=== PATIENT | female | born 1970 | race Caucasian/White ===

== ENCOUNTER 2020-04-24 12:22 | Emergency (ER) | payer OTHER, SELFPAY ==
--- NOTE | ~2020-04-24 | XR_ITS ---
EXAMINATION: XR chest 2V DATE: 04/24/2020 13:14 INDICATION: Cough. TECHNIQUE: Frontal and lateral views of the chest were obtained. COMPARISON: None. FINDINGS: The chest demonstrates clear lungs without pneumonia, pleural effusion, or pneumothorax. Th e heart size is normal. There is a moderate-sized hiatal hernia. IMPRESSION: 1. Moderate-sized hiatal hernia. Reviewed, dictated and finalized at location A. 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
[2020-04-24 12:38] VITALS: BP 152/93; PULSE 90; RESP 20; TEMP 36.8; O2SAT 98
--- NOTE | 2020-04-24 13:04 | ED.GENADULT ---
HPI - General Adult General Chief complaint: Upper Respiratory Infection Stated complaint: cough Source: patient Mode of arrival: ambulatory Limitations: no limitations History of Present Illness HPI narrative: Patient presents for evaluation of respiratory symptoms. She indicates she developed chest congestion on 04/13/2020. She was evaluated at [facility] and had a positive Covid screening on 04/16/2020. She experienced a fever, productive cough of clear sputum, hoarse voice and some abdominal cramping after eating. No shortness of breath, chest pain, vomiting. She states her and son also tested positive for Covid. She does not smoke. No history of VTE. No surgeries with the last 4 weeks. No leg swelling. She states she came in today because she was concerned she had bronchitis. She states several years ago she had recurrent bronchitis and sounds like she was treated with antibiotics for some reason. She is scheduled to go back to work tomorrow and is concerned about a lingering cough. However, she is requesting go back to work and indicates that she does not want any medication to suppress her cough. Related Data Home Medications Medication Instructions Recorded Confirmed hydrochlorothiazide 04/24/20 nebivolol [Bystolic] mg 04/24/20 norethindrone acetate mg 04/24/20 omeprazole 04/24/20 Allergies Allergy/AdvReac Type Severity Reaction Status Date / Time No Known Allergies Allergy Unverified 05/01/18 15:59 Review of Systems Review of Systems: Narrative: CONSTITUTIONAL: Reports fever. Denies chills, or sweats. EYES: Denies visual changes, redness, or discharge. ENT: Denies rhinorrhea, congestion, sore throat, or otalgia. CARDIOVASCULAR: Denies chest pain, palpitations, or edema. RESPIRATORY: Reports productive cough of clear sputum. Denies SOB. GASTROINTESTINAL: Reports abdominal cramping after eating. Reports nausea without vomiting. GENITOURINARY: Denies dysuria or hematuria. SKIN: Denies rash or itching. MUSCULOSKELETAL: Denies back pain, joint pain, or myalgia. NEUROLOGIC: Denies headache, numbness, dizziness, or weakness. PSYCHIATRIC: Denies anxiety or depression. [facility] Past Medical History Medical History (Updated 04/24/20 @ 13:58 by Gopi Ann, [employer], ) GERD (gastroesophageal reflux disease) Hypertension Surgical History Surgical History History of Family History Family History (Reviewed 04/24/20 @ 13:08 by Gopi Ann [facility]) Father Heart disease Social History Social History (Reviewed 04/24/20 @ 13:09 by Gopi Ann [facility]) Smoking status: Never smoker Alcohol intake: current Alcohol use details: daily consumption to assist with sleep. 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 HEAD: Normocephalic, atraumatic. EYES: PERRLA and EOMI. ENT: Nares clear, no rhinorrhea or epistaxis. Mucous membranes moist. Oropharynx without tonsillar hypertrophy exudate or other lesions. Bilateral TMs pearly buck nonbulging NECK: Supple. No adenopathy or masses. No carotid bruits or JVD CHEST: Clear to auscultation. No respiratory distress. No wheezes rales or rhonchi HEART: Regular rate and rhythm. No murmur heard. Normal peripheral pulses. ABDOMEN: Soft, nontender, nondistended, normal active bowel sounds. EXTREMITIES: Normal range of motion. No edema. SKIN: Warm, dry, no rash. NEURO: No focal deficits. Alert and oriented x3. PSYCH: Normal mood and affect. Course
== END 2020-04-24 14:34 | disposition home or self-care (01) ==
PROVIDERS: Emergency Provider Nurse Practitioner; PCP Family Medicine
DX: U07.1 COVID-19 (principal); K44.9 Diaphragmatic hernia without obstruction or gangrene; K21.9 Gastro-esophageal reflux disease without esophagitis; I10 Essential (primary) hypertension
CPT/HCPCS: 71046; 99213; G0463

== ENCOUNTER 2021-07-12 16:52 | Outpatient (CLI) | payer OTHER, SELFPAY ==
[2021-07-12 18:22] LABS: Ferritin 5.26 ng/mL (11.1-264)
== END 2021-07-12 16:53 | disposition home or self-care (01) ==
LOC: ANHLAB 16:54
PROVIDERS: PCP Family Medicine; Visit Provider Nurse Practitioner Family
DX: R25.2 Cramp and spasm (principal); E61.1 Iron deficiency
CPT/HCPCS: 36415; 82607; 82728; 83735

== ENCOUNTER 2021-07-17 10:12 | Outpatient (CLI) | payer OTHER, SELFPAY ==
--- NOTE | 2021-07-17 10:18 | EST_ITS ---
Patient Info Name: Gabrielle Whitney Age: 51 years : 1970 Gender: Female Ht: 67 in Wt: 200 lbs BSA: 2.10 m2 Exam Date: 07/17/2021 10:31 AM Exam Location: [facility] Patient Status: Outpatient Admit Date: 07/17/2021 Staff Ordering Physician: Nico Parmar NP Attending Provider: Nico Parmar NP Exercise Technologist: Raven Barboza RDCS Exercise Physician: Torres Silverman DO Exam Type: CA stress test treadmill Study Info Indications R07.9 - Chest pain, unspecified A treadmill exercise stress test was performed. Summary 1. 1. Negative Jared exercise stress test for ischemic ST changes by ECG criteria. 2. 2. Reduced functional capacity, achieving 7 METs of workload. 3. 3. Baseline hypertension with hypertensive response to exercise. 4. 4. Appropriate HR response to exercise. 5. 5. Appropriate HR recovery at 1 minute post exercise. 6. 6. No imaging with stress testing. 7. 7. Patient informed of the above results. Protocol: Jared Stress ECG Details Stage: REST Duration (min): 7 min : 11 sec Speed (mph): 0.0 Grade (%): 0 HR (bpm): 86 SBP (mmHg): 158 DBP (mmHg): 96 METS: --- Stage: REST Duration (min): 14 min : 10 sec Speed (mph): 0.0 Grade (%): 0 HR (bpm): 102 SBP (mmHg): 158 DBP (mmHg): 96 METS: --- Stage: STAGE 1 Duration (min): 1 min : 0 sec Speed (mph): 1.7 Grade (%): 10 HR (bpm): 126 SBP (mmHg): 158 DBP (mmHg): 96 METS: --- Stage: STAGE 1 Duration (min): 2 min : 0 sec Speed (mph): 1.7 Grade (%): 10 HR (bpm): 139 SBP (mmHg): 158 DBP (mmHg): 96 METS: --- Stage: STAGE 1 Duration (min): 3 min : 0 sec Speed (mph): 1.7 Grade (%): 10 HR (bpm): 146 SBP (mmHg): 214 DBP (mmHg): 84 METS: --- Stage: STAGE 2 Duration (min): 1 min : 0 sec Speed (mph): 2.5 Grade (%): 12 HR (bpm): 155 SBP (mmHg): 214 DBP (mmHg): 84 METS: --- Stage: STAGE 2 Duration (min): 2 min : 0 sec Speed (mph): 2.5 Grade (%): 12 HR (bpm): 163 SBP (mmHg): 225 DBP (mmHg): 92 METS: --- Stage: STAGE 2 Duration (min): 2 min : 0 sec Speed (mph): 2.5 Grade (%): 12 HR (bpm): 163 SBP (mmHg): 225 DBP (mmHg): 92 METS: --- Stage: RECOVERY Duration (min): 0 min : 59 sec Speed (mph): 0.0 Grade (%): 0 HR (bpm): 144 SBP (mmHg): 224 DBP (mmHg): 97 METS: --- Stage: RECOVERY Duration (min): 1 min : 59 sec Speed (mph): 0.0 Grade (%): 0 HR (bpm): 121 SBP (mmHg): 224 DBP (mmHg): 97 METS: --- Stage: RECOVERY Duration (min): 2 min : 59 sec Speed (mph): 0.0 Grade (%): 0 HR (bpm): 115 SBP (mmHg): 224 DBP (mmHg): 97 METS: --- Stage: RECOVERY Duration (min): 3 min : 59 sec Speed (mph): 0.0 Grade (%): 0 HR (bpm): 107 SBP (mmHg): 198 DBP (mmHg): 93 METS: ---
== END 2021-07-17 10:13 | disposition home or self-care (01) ==
PROVIDERS: PCP Family Medicine; Visit Provider Nurse Practitioner Family
DX: R07.9 Chest pain, unspecified (principal)
CPT/HCPCS: 93017

== ENCOUNTER 2021-07-19 15:17 | Outpatient (CLI) | payer OTHER, SELFPAY ==
[2021-07-19 16:00] LABS: Hematocrit 34.9 % (37.0-47.0); Mean Corpuscular HGB Conc 28.7 g/dl (32-36); Mean Corpuscular Hemoglobin 22.1 pg (26-34); Mean Corpuscular Volume 77.2 fl (80-100); Platelet Count Result 417 k/mm3 (150-375); Red Blood Count 4.52 M/mm3 (4.2-5.4); Red Cell Distribution Width 17.1 % (11.5-14.5); White Blood Count 10.1 K/mm3 (4.5-10.0)
[2021-07-19 16:11] LABS: Alanine Aminotransferase 75 U/L (4-35); Albumin Level 4.6 g/dL (3.5-5.1); Alkaline Phosphatase 114 U/L (38-126); Anion Gap 10 mmol/L (8-16); Aspartate Amino Transferase 53 U/L (14-36); Bilirubin,Total 0.4 mg/dL (0.2-1.3); Blood Urea Nitrogen 14 mg/dL (7-17); Calcium 9.2 mg/dL (8.4-10.2); Carbon Dioxide 27 mmol/L (22-30); Chloride 98 mmol/L (98-107); Cholesterol 239 mg/dL (0-200); Estimated Glomerular Filt Rate > 60; Glucose 113 mg/dL (65-110); HDL Direct 65 mg/dL; Potassium 3.1 mmol/L (3.4-5.0); Sodium 135 mmol/L (137-145); Triglycerides 371 mg/dL (<150)
[2021-07-19 16:22] LABS: LDL Cholesterol Direct 104 mg/dL
[2021-07-19 18:11] LABS: Vitamin D 25 Hydroxy 37.9 ng/mL
[2021-07-19 20:35] LABS: Iron 30 ug/dL (37-170)
[2021-07-19 20:45] LABS: Percent Iron Saturation 6 % (20-50)
== END 2021-07-19 15:18 | disposition home or self-care (01) ==
PROVIDERS: PCP Family Medicine; Visit Provider Nurse Practitioner Family
DX: I10 Essential (primary) hypertension (principal); Z13.1 Encounter for screening for diabetes mellitus; Z68.31 Body mass index [BMI] 31.0-31.9, adult; F41.9 Anxiety disorder, unspecified; Z13.29 Encounter for screening for other suspected endocrine disorder; E61.1 Iron deficiency; Z13.220 Encounter for screening for lipoid disorders; Z55.9 Problems related to education and literacy, unspecified
CPT/HCPCS: 36415; 80053; 80061; 82306; 83540; 83550; 84443; 85027

== ENCOUNTER 2021-11-06 16:55 | Outpatient (CLI) | payer OTHER, SELFPAY ==
[2021-11-06 17:20] LABS: Basophils Absolute Auto 0.1 K/mm3 (0.0-0.1); Basophils Percent Auto 0.7 % (0.2-1.2); Eosinophils Absolute Auto 0.1 K/mm3 (0-0.3); Eosinophils Percent Auto 1.1 % (0-4.4); Hemoglobin 10.6 g/dL (12.0-15.0); Immature Granulocyte Absolute 0.02 K/mm3 (0.00-0.031); Immature Granulocyte Percent A 0.2 % (0-0.5); Lymphocytes Absolute Auto 1.97 K/mm3 (0.9-3.2); Lymphocytes Percent Auto 20.7 % (18.3-44.2); Mean Corpuscular HGB Conc 29.4 g/dl (32-36); Mean Corpuscular Hemoglobin 23.4 pg (26-34); Mean Corpuscular Volume 79.5 fl (80-100); Mean Platelet Volume 10.2 fl (7.4-10.4); Monocytes Absolute Auto 0.8 K/mm3 (0.1-0.6); Neutrophils Absolute Auto 6.6 K/mm3 (1.3-6.7); Neutrophils Percent Auto 69.3 % (45.5-73.1); Platelet Count Result 380 k/mm3 (150-375); Red Blood Count 4.53 M/mm3 (4.2-5.4); Red Cell Distribution Width 15.9 % (11.5-14.5); White Blood Count 9.5 K/mm3 (4.5-10.0)
[2021-11-06 17:27] LABS: Alanine Aminotransferase 52 U/L (6-35); Albumin Level 4.5 g/dL (3.5-5.1); Alkaline Phosphatase 139 U/L (38-126); Anion Gap 12 mmol/L (8-16); Aspartate Amino Transferase 32 U/L (14-36); Bilirubin,Total 0.3 mg/dL (0.2-1.3); Blood Urea Nitrogen 12 mg/dL (7-17); Calcium 9.6 mg/dL (8.4-10.2); Carbon Dioxide 23 mmol/L (22-30); Chloride 101 mmol/L (98-107); Estimated Glomerular Filt Rate > 60; Glucose 95 mg/dL (65-110); Sodium 136 mmol/L (137-145)
[2021-11-06 17:41] LABS: Iron 25 ug/dL (37-170)
[2021-11-06 17:51] LABS: Percent Iron Saturation 5 % (20-50)
[2021-11-06 17:52] LABS: Vitamin D 25 Hydroxy 25.2 ng/mL
[2021-11-06 18:18] LABS: Ferritin 4.71 ng/mL (11.1-264)
== END 2021-11-06 16:56 | disposition home or self-care (01) ==
PROVIDERS: PCP Family Medicine; Visit Provider Nurse Practitioner Family
DX: E61.1 Iron deficiency (principal); I10 Essential (primary) hypertension; E55.9 Vitamin D deficiency, unspecified
CPT/HCPCS: 36415; 80053; 82306; 82728; 83540; 83550; 85025

== ENCOUNTER 2022-06-27 18:40 | Emergency (ER) | payer OTHER, SELFPAY ==
[2022-06-27 18:47] VITALS: BP 149/86; PULSE 89; RESP 18; TEMP 37.3; O2SAT 100
--- NOTE | 2022-06-27 19:13 | ED.URI ---
HPI - URI/Sore Throat General Chief Complaint: Upper Respiratory Infection Stated Complaint: strep throat Time Seen by Provider: 06/27/22 19:10 Source: patient, RN notes reviewed and old records reviewed Mode of arrival: ambulatory Limitations: no limitations History of Present Illness HPI Narrative: 52 year old female who presents to [facility] care with complaints of sore throat since last night. Patient reports that she had previous strep throat in April and was treated with antibiotic which she completed. Patient states that she has taken some Tylenol and Ibuprofen for her discomfort. 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 Patient reports some sinus drainage but denies any acute cough or any ear pain or any known acute fevers. MD elicited complaint: cough and sore throat Pertinent past history: other (previous strep) Onset (ago): day(s) (last night) Pain scale (0-10): 2 Able to tolerate fluids by mouth: Yes Exacerbating factors: swallowing Treatments prior to arrival: acetaminophen and ibuprofen Related Data Home Medications Medication Instructions Recorded Confirmed norethindrone 1 mg-ethinyl 1 tablet PO DAILY 11/06/21 06/27/22 estradiol 20 mcg (24)-iron 75 mg (4) tablet (Blisovi 24 Fe) Allergies Allergy/AdvReac Type Severity Reaction Status Date / Time Lactobacillus rhamnosus GG AdvReac Intermediate Nausea and Verified 06/27/22 18:57 [From [facility] Vomiting Probiotics] Review of Systems Review of Systems: CONSTITUTIONAL: Denies malaise, chills, sweats, or fever. EYES: Denies visual changes, redness, or discharge. ENT: Reports rhinorrhea, congestion, sinus pain,no otalgia positive sore throat. CARDIOVASCULAR: Denies chest pain, palpitations, or edema. RESPIRATORY: Reports no acute cough.? Denies dyspnea. GASTROINTESTINAL: Denies abdominal pain, nausea, vomiting, diarrhea SKIN: Denies rash or itching. MUSCULOSKELETAL: Denies myalgia. NEUROLOGIC: Denies headache. All systems reviewed & are unremarkable except as noted in HPI and below PMFSH Past Medical History Medical History BMI 27.0-27.9,adult BMI 28.0-28.9,adult BMI 30.0-30.9,adult BMI 31.0-31.9,adult GERD (gastroesophageal reflux disease) Hypertension Post endometrial ablation syndrome Surgical History Surgical History History of Family History Family History Father Heart disease Acute myocardial infarction Mother Sepsis Arthritis Hypertension Sibling Acute myocardial infarction COVID-19 Sibling Hypertension Cerebrovascular accident COVID-19 Social History Social History Smoking status: Never smoker Second hand tobacco smoke exposure: Yes Alcohol intake: current Alcohol use details: daily consumption to assist with sleep. 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 There is no relevant family history pertinent to the presenting
== END 2022-06-27 19:30 | disposition home or self-care (01) ==
PROVIDERS: Emergency Provider Registered Nurse; PCP Family Medicine
DX: J02.0 Streptococcal pharyngitis (principal); I10 Essential (primary) hypertension
CPT/HCPCS: 87880; 99213; G0463

== ENCOUNTER 2022-11-09 09:19 | Outpatient (CLI) | payer OTHER, SELFPAY ==
[2022-11-09 09:38] LABS: Hematocrit 32.2 % (37.0-47.0); Hemoglobin 9.5 g/dL (12.0-15.0); Mean Corpuscular HGB Conc 29.5 g/dl (32-36); Mean Corpuscular Hemoglobin 22.9 pg (26-34); Mean Corpuscular Volume 77.6 fl (80-100); Mean Platelet Volume 9.8 fl (7.4-10.4); Platelet Count Result 362 k/mm3 (150-375); Red Blood Count 4.15 M/mm3 (4.2-5.4); Red Cell Distribution Width 16.5 % (11.5-14.5); White Blood Count 9.2 K/mm3 (4.5-10.0)
[2022-11-09 09:53] LABS: Alanine Aminotransferase 37 U/L (6-35); Albumin Level 4.3 g/dL (3.5-5.1); Alkaline Phosphatase 77 U/L (38-126); Anion Gap 6 mmol/L (8-16); Aspartate Amino Transferase 31 U/L (14-36); Bilirubin,Total 0.4 mg/dL (0.2-1.3); Blood Urea Nitrogen 16 mg/dL (7-17); Calcium 9.3 mg/dL (8.4-10.2); Carbon Dioxide 27 mmol/L (22-30); Chloride 103 mmol/L (98-107); Estimated Glomerular Filt Rate > 60; Glucose 106 mg/dL (65-110); Magnesium 1.8 mg/dL (1.6-2.3); Potassium 3.7 mmol/L (3.4-5.0); Sodium 136 mmol/L (137-145)
[2022-11-09 10:41] LABS: Iron 41 ug/dL (37-170); Percent Iron Saturation 8 % (20-50)
[2022-11-09 11:29] LABS: HAV RESULT Negative (Negative); Hepatitis B Core IgM Result Negative (Negative); Hepatitis B Surface Antigen Negative (Negative); Hepatitis C Virus Antibody Negative (Negative)
[2022-11-09 12:08] LABS: Vitamin D 25 Hydroxy 25.2 ng/mL
== END 2022-11-09 09:20 | disposition home or self-care (01) ==
PROVIDERS: PCP Family Medicine; Visit Provider Family Medicine
DX: E61.1 Iron deficiency (principal); E55.9 Vitamin D deficiency, unspecified; I10 Essential (primary) hypertension; R74.01 Elevation of levels of liver transaminase levels
CPT/HCPCS: 36415; 80048; 80074; 80076; 82306; 83540; 83550; 83735; 84443; 85027

== ENCOUNTER 2022-11-30 12:42 | Outpatient (CLI) | payer OTHER, SELFPAY ==
--- NOTE | ~2022-11-30 | XR_ITS ---
EXAMINATION: XR lumbar spine min 4V DATE: 11/30/2022 13:11 INDICATION: Spondylosis without myelopathy TECHNIQUE: Anteroposterior and lateral in neutral, flexion and extension views of the lumbar spine we re obtained. COMPARISON: None. FINDINGS: Bone alignment is normal. There is no hypermobility with flexion or extension. There is mod erate loss of intervertebral disc space height at L5-S1. The vertebral body heights are maintained. T here is no fracture. There are phleboliths of the pelvis. IMPRESSION: 1. Moderate lumbar spondylosis at L5-S1. Reviewed, dictated and finalized at location F.
== END 2022-11-30 12:43 | disposition home or self-care (01) ==
PROVIDERS: PCP Family Medicine; Visit Provider Neurological Surgery
DX: M47.816 Spondylosis without myelopathy or radiculopathy, lumbar region (principal); M47.897 Other spondylosis, lumbosacral region
CPT/HCPCS: 72110

== ENCOUNTER 2022-12-18 14:55 | Outpatient (CLI) | payer OTHER, SELFPAY ==
--- NOTE | 2022-12-18 15:25 | ECG_ITS ---
Measurements Intervals [place] Rate: 73 P: 5 KS: 169 QRS: -8 QRSD: 88 T: -2 QT: 400 QTc: 441 Interpretive Statements SINUS RHYTHM VOLTAGE CRITERIA FOR LVH [MEETS CRITERIA IN ONE OF: R(aVL), S(V1), R(V5), R(V5/V6)+S(V1)] NO PREVIOUS ECG AVAILABLE FOR COMPARISON Electronically Signed On 12-18-2022 15:54:19 CDT by Yousif Vaughan M.D.
[2022-12-18 15:52] LABS: Hematocrit 29.1 % (37.0-47.0); Hemoglobin 8.6 g/dL (12.0-15.0); Mean Corpuscular HGB Conc 29.6 g/dl (32-36); Mean Corpuscular Hemoglobin 22.9 pg (26-34); Mean Corpuscular Volume 77.6 fl (80-100); Mean Platelet Volume 10.4 fl (7.4-10.4); Platelet Count Result 386 k/mm3 (150-375); Red Blood Count 3.75 M/mm3 (4.2-5.4); Red Cell Distribution Width 16.2 % (11.5-14.5); White Blood Count 10.1 K/mm3 (4.5-10.0)
[2022-12-18 15:53] LABS: Appearance Urine Clear (Clear); Bilirubin Urine Negative (Negative); Blood Urine Negative (Negative); Color Urine Yellow (Yellow); Glucose Urine UA Negative (Negative); Ketones Urine Negative (Negative); Leukocyte Esterase Ur Negative LEU/UL (Negative); Nitrate Urine Negative (Negative); Protein Urine Negative (Negative); Specific Grav Ur 1.016 (1.001-1.035); Urobilinogen Urine 0.2 mg/dL (<2.0); pH Urine 5.5 (5.0-9.0)
[2022-12-18 15:56] LABS: Add Urine Microscopic? NO
[2022-12-18 16:04] LABS: INR 0.9; Partial Thromboplastin Time 23.9 SECONDS (22.3-36.8); Prothrombin Time 12.6 Seconds (11.1-14.7)
== END 2022-12-18 14:56 | disposition home or self-care (01) ==
LOC: ANHSURGERY 14:59
PROVIDERS: PCP Family Medicine; Visit Provider Neurological Surgery
DX: M47.816 Spondylosis without myelopathy or radiculopathy, lumbar region (principal); I10 Essential (primary) hypertension; Z01.818 Encounter for other preprocedural examination
CPT/HCPCS: 36415; 81003; 85027; 85610; 85730; 93005

== ENCOUNTER 2022-12-20 00:36 | Day surgery (SDC) | payer OTHER, SELFPAY ==
[2022-12-13 15:12] VITALS: BMI 29.7
--- NOTE | 2022-12-13 15:14 | PC.NURSE ---
Report to the Outpatient Waiting Room, entrance under the green pavilion located off [facility], at time 10:00 on date 12/20/22. Planned Procedure Time: 12:00. Time changes happen often and if your time is changed the preop area will call you the afternoon before. - You and your visitor will be asked to self-screen and do not enter if you have any COVID symptoms. - A mask is optional within the hospital at this time. Patients may have clear liquids (water, carbonated beverages, clear teas, apple juice) until 3 hours prior to surgery (9:00) with a maximum of 20 ounces. - No food from midnight until time of surgery Take the following medications with a SIP of water the morning of surgery: BLISOVI DO NOT STOP ANY OF YOUR OTHER PRESCRIPTION MEDICATIONS PRIOR TO SURGERY ?EXCEPT THE FOLLOWING Medications to discontinue per physician: DICLOFENAC Date to take last dose: 12/12/22 PER PT Please no make-up, nail italian, hairspray, perfume, deodorant, or body powder the day of surgery. No jewelry (including any body piercings) or valuables the day of surgery, leave them at home. Please take a shower or bath the night before, or the morning of, surgery with an antibacterial soap. Wear comfortable, loose fitting clothing. - Jewelry must be removed prior to entering the operating room. Rings and piercings that are not removed may be cut off. - The hospital will not accept responsibility for valuables. - Please leave all valuables, including medications, at home the day of surgery. If you are going home after surgery, a licensed medical delivery driver must drive you home. - NO public transportation without another adult if you receive anesthesia. - We recommend that an adult stay with you for 24 hours following discharge. - We also recommend that you do not drive, make important decision, drink alcoholic beverages, or take any drugs that were not prescribed by your health care provider for at least 24 hours after your discharge time. Follow any additional instructions given to you from your surgeon. If you or anyone in your household have experienced Covid symptoms in the past week, please notify your surgeon or the nurse liaison at the phone number below for possible testing. Telephone instructions given to PT - CLARENCE ADAMS and asked if any additional questions and then verbalized understanding. Patient advised to call surgeon office or pre surgery nurse liaison [phone] if any additional questions.
[2022-12-20] VITALS (10 sets, daily range): BP systolic 130–145; BP diastolic 73–87; PULSE 71–102; RESP 12–17; TEMP 36.3–36.6; O2SAT 96–100
--- NOTE | ~2022-12-20 | XR_ITS ---
EXAMINATION: XR fluoroscopy no charge DATE: 12/20/2022 13:15 INDICATION: Lumbar decompression TECHNIQUE: 2 lateral fluoroscopic images of the lumbosacral junction were obtained during procedure p erformed by Dr. Holden. Radiologist was not present for the imaging or procedure. The amount of fluoro scopy time used during this procedure was 0.1 minutes. COMPARISON: 11/30/2022 FINDINGS: Initial image redemonstrates minimal retrolisthesis L5 on S1 with moderate associated disc height los s. Soft tissue retractors project over the soft tissues posterior to the L4 and L5 spinous processes. The tip of a metallic probe projects over the region of the L5-S1 facet joints. IMPRESSION: 1. Fluoroscopy utilized during reported lower lumbar decompression. See procedure note for further de tail. Reviewed, dictated and finalized at location A. IMPRESSION: 1. Fluoroscopy utilized during reported lower lumbar decompression. See procedu re note for further detail.
--- NOTE | 2022-12-20 09:37 | WPDANESEPPF ---
Anes - Initial Pre Proc Eval Procedure: Operation Date: 12/20/22 10:00 Proposed Procedures p Left L5-S1 Lumbar Decompression - Vanessa Holden MD Date/Time: 12/20/22 09:37 Surgeon: Vanessa Holden MD Pre Op Diagnosis: lumbar spondylosis Patient Data Age: 52 Gender: F Height: 1.7 m Weight: 86.2 kg Allergies Allergy/AdvReac Type Severity Reaction Status Date / Time amlodipine AdvReac Intermediate Swelling Verified 12/13/22 15:09 Lactobacillus rhamnosus GG AdvReac Intermediate Nausea and Verified 12/13/22 15:09 [From [facility] Vomiting Probiotics] lisinopril AdvReac Mild Cough Verified 12/13/22 15:09 Home Medications Medication Instructions Recorded Confirmed Type norethindrone 1 mg-ethinyl 1 tablet PO DAILY #84 tabs 12/10/22 12/13/22 Rx estradiol 20 mcg (24)-iron 75 mg (4) tablet (Blisovi 24 Fe) pantoprazole 40 mg tablet,delayed 40 mg PO QAM #90 tabs 12/10/22 12/13/22 Rx release pregabalin 75 mg capsule 75 mg PO QHS #90 caps 12/10/22 12/13/22 Rx losartan 50 mg tablet 50 mg PO DAILY #90 tabs 12/14/22 Rx diclofenac sodium 75 mg 75 mg PO BID #180 tabs 12/18/22 Rx tablet,delayed release hydrochlorothiazide 50 mg tablet 50 mg PO DAILY #90 tabs 12/18/22 Rx metoprolol succinate 100 mg 100 mg PO DAILY #90 tabs 12/18/22 Rx tablet,extended release 24 hr Patient hx anesthesia problems: none Family hx anesthesia problems: none Results Review: All pre-operative results and documents have been reviewed as part of the pre-operative evaluation. [facility] Past Medical History Medical History BMI 27.0-27.9,adult BMI 28.0-28.9,adult BMI 29.0-29.9,adult BMI 30.0-30.9,adult BMI 31.0-31.9,adult GERD (gastroesophageal reflux disease) Hypertension Post endometrial ablation syndrome Uterine fibroid Surgical History Surgical History History of Family History Family History Father Heart disease Acute myocardial infarction Mother Sepsis Arthritis Hypertension Sibling Acute myocardial infarction COVID-19 Sibling Hypertension Cerebrovascular accident COVID-19 Social History Social History Smoking status: Never smoker Second hand tobacco smoke exposure: Yes Alcohol intake: current Alcohol use details: RARE Substance use: never Substance use type: does not use Lack of Transportation: No Lack of Food: Never True Current Housing: I Have Housing Concerned About Future Housing: No Difficulty Paying Gas/Electric Bills: No Difficulty Paying for Meds: No Currently Unemployed: No Education: Bachelor's Degree Difficulty w/ Childcare or Family Care: No Living arrangements: with family Occupation/Education: occupation 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[employer] Gender identity (if verbalized by the patient): Female Sexual Orientation (if Verbalized by the Patient): Straight or Heterosexual Spiritual care concerns: No Anes - Eval Final PreProcedure Day of Procedure 12/20/22 09:37 Patient weight: overweight Heart: regular rate and rhythm Lungs: clear to auscultation Airway: Mallampati scale class II Neurological: alert and oriented Last oral intake: >/= 8 hours ASA classification: II Emergent: no Anesthetic plan: proceed Anesthesia type and monitoring: general ETT and standard monitoring Results Review: All pre-operative results and documents have been reviewed as part of the pre-operative evaluation. Informed Consent: The patient's anesthetic plan and its attendant risks and benefits were discussed with the patient/family/POA. Questions were solicited and answers provided to the satisfaction of the patient/family/POA.
[2022-12-20] MEDS: LACTATED RINGERS 1,000 ML 30 ML IV CONT ×2 (09:55→13:49)
--- NOTE | 2022-12-20 11:23 | WPDHPUPDATE1 ---
History and Physical Update Update Date/Time: 12/20/22 11:23 History and Physical has been reviewed, including an updated exam of the patient. There are NO changes in the patient's condition. Risks, benefits, and alternatives have been discussed and questions answered. Patient agrees to proceed with procedure. Plan is for lumbar decompression L5-S1 on the left
[2022-12-20] MEDS: ceFAZolin 2 GM/D5W 50 ML 2 GM/50 ML BAG IVPB (11:52)
[2022-12-20] MEDS: LIDO 1%/EPINEPHRINE 1:100,000 50 ML VIAL INFILTRATE (12:30)
[2022-12-20] MEDS: BUPivacaine HCL 0.5% 10 ML AMP 20 ML INFILTRATE (12:31)
[2022-12-20] MEDS: methylPREDNISolone ACETATE 40 MG/ML VIAL XX (13:00)
--- NOTE | 2022-12-20 13:09 | W.PM.PROC2 ---
Procedure Note - Detailed Date of Procedure 12/20/22 Pre-op Diagnosis lumbar spondylosis Post-op Diagnosis Same Procedure Performed left sided decompression at L5-S1 Surgeon Vanessa Holden MD Anesthesia General Indications Gabrielle Whitney is a very pleasant? 52 year old? female who presents at the request of? Dr. Harley with signs and symptoms of? left lower extremity pain and sensory change that fits best with the left S1 distribution in the setting of lumbar spondylosis with a large left paracentral disc herniation at L5-S1 on imaging.? Mrs. Whitney's symptoms were severe and entirely limiting at onset, but they then improved significantly with conservative care.?? she did well for several months, but her pain returned this summer and has not not been responsive to a formal course of physical therapy and a 2nd epidural steroid injection.She has tried treatments that include [id number] medications as well as diclofenac and muscle relaxant. In the office the most concerning symptom to the patient was that her symptoms are recurrent and now not responsive to nonsurgical measures.? She is increasingly frustrated by her symptoms.? She is inclined to pursue surgery. The patient and I have had an extended discussion in the office regarding the options for management of these clinical symptoms and radiographic findings. We have discussed the option of? additional physical therapy and the benefit to a formal course of physical therapy. We have discussed the option of interventional pain management strategies including? repeated BRE or ablative procedures. In this case we have more specifically discussed? that? as these measures have not given lasting relief to date, the likelihood the repeated attempts would offer a different result is small Finally, we have generally discussed the option of surgery. In the absence of functional deficits, I have explained that my preference is to exhaust non surgical options prior to consideration of surgery.? Particularly given the finding of mild weakness on examination,? as the patient's pain has returned and her strength did not improve, we have discussed that it would be very reasonable to consider surgical intervention. In this case we have discussed that surgery would entail a lumbar microdiskectomy at L5-S1 on the left. ? Gabrielle is inclined to pursue surgery. I have discussed the indications as well as the risks of surgery including but not limited to bleeding, infection, CSF leak, numbness, weakness, paralysis, stroke, coma, even . We have discussed the fundamentals of the surgical procedure as well as the typical recovery from surgery. She indicates understanding and asks us to proceed with surgery, specifically a lumbar decompression at L5-S1 on the left Description of Procedure The patient was brought into the operating room where general anesthesia was induced.? Appropriate monitoring was obtained.? The patient was turned into a prone position on the Brent table with a Ryan frame.? Extremities were padded.? The patient was secured with straps to the table.? Localization was performed using intraoperative fluoroscopy and the? L5-S1 level was identified. The patient's back was prepped and draped sterilely.? A surgical time out was performed.? The planned incision was infused with local anesthetic.? The incision was made using a #10 skin blade.? Hemostasis was achieved. Self retaining retractors were placed and advanced.? The? L5? spinous process was identified and the muscle was dissected off of the spinous process and lamina of L5 on the left using bovie electrocautery.? Self retaining retractors were advanced.? A curette was placed under the L5 lamina and the L5-S1 level was confirmed again using intraoperative fluoroscopy.? Attention was turned to the L5-S1 level.? The lamina on the left was drilled using a high speed shadia drill with a matchstick tip.? The lamina was drilled lateral to the level of the facet complex un
[2022-12-20] MEDS: fentaNYL CITRATE INJ (*CRX) 100 MCG/2 ML VIAL 25 MCG IV PUSH ×4 (13:59→14:33)
--- NOTE | 2022-12-20 16:31 | SUR.PHASEII ---
When RN went into patient's room for the first time to introduce myself, she complained about the GOLF COURSE KEEPER that brought her from PACU to outpatient room 14. Patient stated, That person that settled me into this room coughed on me. Now I'm in a bad mood. I don't want those crackers or that drink. RN offered to give the patient new crackers and a new drink. Patient wanted only new water at that time. RN apologized to patient on behalf of the other staff member. Patient asked RN if she could voice her complaint to someone. This RN called Wali Russell and he heard patient's side of the story. Patient still felt like she got no where with her situation and left hospital angry.
== END 2022-12-20 16:03 | disposition home or self-care (01) ==
PROVIDERS: PCP Family Medicine; Visit Provider Neurological Surgery
PROC: (CPT 63005; principal; 2022-12-20 10:00)
DX: M47.816 Spondylosis without myelopathy or radiculopathy, lumbar region (principal); M51.26 Other intervertebral disc displacement, lumbar region; K21.9 Gastro-esophageal reflux disease without esophagitis; I10 Essential (primary) hypertension
CPT/HCPCS: 63047; 36415; 81003; 85027; 85610; 85730; 93005; 99199; J0690; J1030; J1040; J1100; J1170; J2250; J2371; J2405; J2704; J3010; J3370; J7120

== ENCOUNTER 2023-01-21 16:21 | Outpatient (CLI) | payer OTHER, SELFPAY ==
[2023-01-21 17:17] LABS: Basophils Absolute Auto 0.1 K/mm3 (0.0-0.1); Basophils Percent Auto 0.7 % (0.2-1.2); Eosinophils Absolute Auto 0.1 K/mm3 (0-0.3); Eosinophils Percent Auto 0.7 % (0-4.4); Hematocrit 30.1 % (37.0-47.0); Hemoglobin 8.5 g/dL (12.0-15.0); Immature Granulocyte Absolute 0.08 K/mm3 (0.00-0.031); Immature Granulocyte Percent A 0.6 % (0-0.5); Lymphocytes Absolute Auto 2.46 K/mm3 (0.9-3.2); Lymphocytes Percent Auto 18.4 % (18.3-44.2); Mean Corpuscular HGB Conc 28.2 g/dl (32-36); Mean Corpuscular Hemoglobin 22.1 pg (26-34); Mean Corpuscular Volume 78.2 fl (80-100); Monocytes Percent Auto 7.5 % (2.6-8.5); Neutrophils Absolute Auto 9.7 K/mm3 (1.3-6.7); Neutrophils Percent Auto 72.1 % (45.5-73.1); Platelet Count Result 347 k/mm3 (150-375); Red Blood Count 3.85 M/mm3 (4.2-5.4); Red Cell Distribution Width 16.5 % (11.5-14.5); White Blood Count 13.4 K/mm3 (4.5-10.0)
[2023-01-21 17:24] LABS: Uric Acid 8.5 mg/dL (2.5-7.5)
[2023-01-21 21:05] LABS: Platelet Estimate Adequate (Adequate)
[2023-01-21 21:06] LABS: Anisocytosis 2+ (NORMAL); Hypochromasia 1+ (NORMAL); Schistocytes None Seen (NORMAL)
[2023-01-21 21:07] LABS: Macrocytosis 1+ (NORMAL)
== END 2023-01-21 16:22 | disposition home or self-care (01) ==
LOC: ANHLAB 16:22
PROVIDERS: PCP Family Medicine; Visit Provider Family Medicine
DX: M25.521 Pain in right elbow (principal)
CPT/HCPCS: 36415; 84550; 85025

== ENCOUNTER 2023-03-05 15:50 | Emergency (ER) | payer OTHER, SELFPAY ==
[2023-03-05 16:05] VITALS: BP 150/94; PULSE 107; RESP 16; TEMP 36.8; O2SAT 100
== END 2023-03-05 16:12 | disposition left against medical advice (07) ==
PROVIDERS: Emergency Provider Nurse Practitioner; PCP Family Medicine
DX: M79.89 Other specified soft tissue disorders (principal)
CPT/HCPCS: 99199

== ENCOUNTER 2023-03-08 02:46 | Day surgery (SDC) | payer OTHER, SELFPAY ==
--- NOTE | 2023-03-04 07:21 | PM.IMHP ---
H&P: HPI History of Present Illness Date/Time: 03/04/23 07:21 Chief Complaint: Excessive bleeding/enlarged uterus/pelvic pain/uterine fibroids Narrative: 52-year-old female admitted for robotic total vaginal hysterectomy bilateral salpingo-oophorectomy secondary to an enlarged fibroid uterus and pelvic pain. She has severe dyspareunia and ongoing pelvic pain. Risks and benefits reviewed including but not exclusive of , aspiration, bleeding, transfusion, perforation injury to bowel, bladder, ureters, or other internal organs with need for open laparotomy. She received the ACOG handout entitled hysterectomy as well as the [place] and down. She had all questions answered to her satisfaction. She asked to proceed PMFSH Past Medical History Medical History BMI 27.0-27.9,adult BMI 28.0-28.9,adult BMI 29.0-29.9,adult BMI 30.0-30.9,adult BMI 31.0-31.9,adult GERD (gastroesophageal reflux disease) Gout Hypertension Iron deficiency anemia Post endometrial ablation syndrome Right elbow pain Thrombophlebitis Uterine fibroid Surgical History Surgical History History of Hx of spinal surgery Family History Family History Father Heart disease Acute myocardial infarction Mother Sepsis Arthritis Hypertension Sibling Acute myocardial infarction COVID-19 Sibling Hypertension Cerebrovascular accident COVID-19 Social History Social History Smoking status: Never smoker Second hand tobacco smoke exposure: Yes Alcohol intake: current Alcohol use details: RARE Substance use: never Substance use type: does not use Lack of Transportation: No Lack of Food: Never True Current Housing: I Have Housing Concerned About Future Housing: No Difficulty Paying Gas/Electric Bills: No Difficulty Paying for Meds: No Currently Unemployed: No Education: Bachelor's Degree Difficulty w/ Childcare or Family Care: No Living arrangements: with family Occupation/Education: occupation 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[employer] Gender identity (if verbalized by the patient): Female Sexual Orientation (if Verbalized by the Patient): Straight or Heterosexual Spiritual care concerns: No Meds Home Medications and Allergies Home Medications Medication Instructions Recorded Confirmed Type pantoprazole 40 mg tablet,delayed 40 mg PO QAM #90 tabs 12/10/22 02/15/23 Rx release losartan 50 mg tablet 50 mg PO DAILY #90 tabs 12/14/22 02/15/23 Rx metoprolol succinate 100 mg 100 mg PO DAILY #90 tabs 12/18/22 02/15/23 Rx tablet,extended release 24 hr norethindrone 1 mg-ethinyl 1 tablet PO DAILY #84 tabs 02/14/23 02/15/23 Rx estradiol 20 mcg (24)-iron 75 mg (4) tablet (Blisovi 24 Fe) aspirin 81 mg tablet,delayed 81 mg PO DAILY 02/15/23 02/15/23 History release Allergies Allergy/AdvReac Type Severity Reaction Status Date / Time amlodipine AdvReac Intermediate Swelling Verified 02/15/23 11:26 Lactobacillus rhamnosus GG AdvReac Intermediate Nausea and Verified 02/15/23 11:26 [From [facility] Vomiting Probiotics] allopurinol AdvReac Mild Other Verified 02/15/23 12:03 lisinopril AdvReac Mild Cough Verified 02/15/23 11:26 Exam Const: General: cooperative, healthy appearing and comfortable Orientation/consciousness: oriented to person, oriented to place and oriented to time Resp: Effort & Inspection: normal respiratory effort Cardio: Rate: regular rate Rhythm: regular rhythm Heart sounds: S1 normal heart sound present and S2 normal heart sound present GI: Inspection: normal to inspection : External Female Exam: normal external appearance Speculum
--- NOTE | 2023-03-04 12:20 | PC.NURSE ---
Report to the Outpatient Waiting Room, entrance under the green pavilion located off [facility], at time 1130 on date 03/08/23. Planned Procedure Time: 1330. Time changes happen often and if your time is changed the preop area will call you the afternoon before. - You and your visitor will be asked to self-screen and do not enter if you have any COVID symptoms. - A mask is optional within the hospital at this time. Patients may have clear liquids (water, carbonated beverages, clear teas, apple juice) until 3 hours prior to surgery with a maximum of 20 ounces. - No food from midnight until time of surgery Take the following medications with a SIP of water the morning of surgery: BLISOVI DO NOT STOP ANY OF YOUR OTHER PRESCRIPTION MEDICATIONS PRIOR TO SURGERY ?EXCEPT THE FOLLOWING Medications to discontinue per physician: ASPIRIN Date to take last dose: PER DR. STEPAHN ALDANA Please no make-up, nail azeri, hairspray, perfume, deodorant, or body powder the day of surgery. No jewelry (including any body piercings) or valuables the day of surgery, leave them at home. Please take a shower or bath the night before, or the morning of, surgery with an antibacterial soap. Wear comfortable, loose fitting clothing. - Jewelry must be removed prior to entering the operating room. Rings and piercings that are not removed may be cut off. - The hospital will not accept responsibility for valuables. - Please leave all valuables, including medications, at home the day of surgery. If you are going home after surgery, a licensed starting gate driver must drive you home. - NO public transportation without another adult if you receive anesthesia. - We recommend that an adult stay with you for 24 hours following discharge. - We also recommend that you do not drive, make important decision, drink alcoholic beverages, or take any drugs that were not prescribed by your health care provider for at least 24 hours after your discharge time. Follow any additional instructions given to you from your surgeon. If you or anyone in your household have experienced Covid symptoms in the past week, please notify your surgeon or the nurse liaison at the phone number below for possible testing. Telephone instructions given to PT - CLARENCE ADAMS and asked if any additional questions and then verbalized understanding. Patient advised to call surgeon office or pre surgery nurse liaison [phone] if any additional questions.
[2023-03-04 12:25] VITALS: BMI 29.7
--- NOTE | 2023-03-07 10:17 | WPDANESEPPF ---
Anes - Initial Pre Proc Eval Procedure: Operation Date: 03/08/23 13:30 Proposed Procedures p Robotic Assisted Total Vaginal Hysterectomy, with Bilateral Salpingo-Oophorectomy - Louis Rg MD Date/Time: 03/07/23 10:17 Surgeon: Louis Rg MD Pre Op Diagnosis: irr bleeding, dysmenorrhea, fibroids, pelvic pain Patient Data Age: 52 Gender: F Height: 1.7 m Weight: 86 kg Allergies Allergy/AdvReac Type Severity Reaction Status Date / Time amlodipine AdvReac Intermediate Swelling Verified 03/04/23 12:18 Lactobacillus rhamnosus GG AdvReac Intermediate Nausea and Verified 03/04/23 12:18 [From Librae Kidjame Vomiting Probiotics] allopurinol AdvReac Mild Other Verified 03/04/23 12:18 lisinopril AdvReac Mild Cough Verified 03/04/23 12:18 Home Medications Medication Instructions Recorded Confirmed Type pantoprazole 40 mg tablet,delayed 40 mg PO QAM #90 tabs 12/10/22 03/04/23 Rx release losartan 50 mg tablet 50 mg PO DAILY #90 tabs 12/14/22 03/04/23 Rx metoprolol succinate 100 mg 100 mg PO DAILY #90 tabs 12/18/22 03/04/23 Rx tablet,extended release 24 hr norethindrone 1 mg-ethinyl 1 tablet PO DAILY #84 tabs 02/14/23 03/04/23 Rx estradiol 20 mcg (24)-iron 75 mg (4) tablet (Blisovi 24 Fe) aspirin 81 mg tablet,delayed 81 mg PO DAILY 02/15/23 03/04/23 History release colchicine 0.6 mg tablet mg 03/05/23 History hydrochlorothiazide 50 mg tablet mg 03/05/23 History norethindrone 1 mg-ethinyl tablet 03/05/23 History estradiol 20 mcg (24)-iron 75 mg (4) tablet (Blisovi 24 Fe) Results Review: All pre-operative results and documents have been reviewed as part of the pre-operative evaluation. [facility] Past Medical History Medical History (Updated 03/07/23 @ 10:17 by Luis Cavazos DO) Anxiety BMI 27.0-27.9,adult BMI 28.0-28.9,adult BMI 29.0-29.9,adult BMI 30.0-30.9,adult BMI 31.0-31.9,adult GERD (gastroesophageal reflux disease) Gout Hypertension Iron deficiency anemia Post endometrial ablation syndrome Right elbow pain Thrombophlebitis Uterine fibroid Surgical History Surgical History History of Hx of spinal surgery Family History Family History Father Heart disease Acute myocardial infarction Mother Sepsis Arthritis Hypertension Sibling Acute myocardial infarction COVID-19 Sibling Hypertension Cerebrovascular accident COVID-19 Social History Social History Smoking status: Never smoker Second hand tobacco smoke exposure: Yes Alcohol intake: current Alcohol use details: RARE Substance use: never Substance use type: does not use Lack of Transportation: No Lack of Food: Never True Current Housing: I Have Housing Concerned About Future Housing: No Difficulty Paying Gas/Electric Bills: No Difficulty Paying for Meds: No Currently Unemployed: No Education: Bachelor's Degree Difficulty w/ Childcare or Family Care: No Living arrangements: with family Occupation/Education: occupation 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 or Heterosexual Spiritual care concerns: No Anes - Eval Final PreProcedure Day of Procedure 03/07/23 10:17 Patient weight: overweight Heart: regular rate and rhythm Lungs: clear to auscultation Airway: Mallampati scale class II Neurological: alert and oriented Last oral intake: >/= 8 hours ASA classification: II Emergent: no Anesthetic plan: proceed Anesthesia type and monitoring: general ETT and standard monitoring Results Review: All pre-operative results and documents have been r
--- NOTE | ~2023-03-08 | US_ITS ---
EXAMINATION: US venous doppler [facility] DATE: 03/08/2023 10:14 INDICATION: Left lower limb pain TECHNIQUE: Villafuerte scale images without and with compression and Doppler images of the left lower extrem ity veins were obtained. COMPARISON: None FINDINGS: There is thrombosis of the left common femoral vein, popliteal vein, peroneal trunk, instructor watch assembly ior tibial veins. The profunda femoral vein, femoral vein, and greater saphenous vein are patent. IMPRESSION: 1. Deep venous thrombosis of the left common femoral vein, popliteal vein, posterior tibial veins, an d peroneal trunk. Reviewed, dictated and finalized at location B. LE NEEDLE STITCHER IMPRESSION: 1. Deep venous thrombosis of the left common femoral vein, popliteal vein, post erior tibial veins, and peroneal trunk.
--- NOTE | 2023-03-08 06:27 | WPDHPUPDATE1 ---
History and Physical Update Update Date/Time: 03/08/23 06:27 History and Physical has been reviewed, including an updated exam of the patient. There are NO changes in the patient's condition. Risks, benefits, and alternatives have been discussed and questions answered. Patient agrees to proceed with procedure.
[2023-03-08 09:22] VITALS: BP 149/86; PULSE 101; RESP 18; TEMP 36; O2SAT 100
--- NOTE | 2023-03-08 09:48 | SUR.PREOP ---
0933 TO US PER STRETCHER
[2023-03-08] MEDS: LACTATED RINGERS 1,000 ML 30 ML IV CONT (10:20)
[2023-03-08 10:37] LABS: Basophils Absolute Auto 0.1 K/mm3 (0.0-0.1); Basophils Percent Auto 0.5 % (0.2-1.2); Eosinophils Percent Auto 0.2 % (0-4.4); Hematocrit 30.6 % (37.0-47.0); Hemoglobin 8.6 g/dL (12.0-15.0); Immature Granulocyte Absolute 0.06 K/mm3 (0.00-0.031); Immature Granulocyte Percent A 0.5 % (0-0.5); Lymphocytes Absolute Auto 1.01 K/mm3 (0.9-3.2); Lymphocytes Percent Auto 7.8 % (18.3-44.2); Mean Corpuscular HGB Conc 28.1 g/dl (32-36); Mean Corpuscular Hemoglobin 21.2 pg (26-34); Mean Corpuscular Volume 75.4 fl (80-100); Mean Platelet Volume 11.6 fl (7.4-10.4); Monocytes Percent Auto 7.4 % (2.6-8.5); Neutrophils Absolute Auto 10.9 K/mm3 (1.3-6.7); Neutrophils Percent Auto 83.6 % (45.5-73.1); Platelet Count Result 350 k/mm3 (150-375); Red Blood Count 4.06 M/mm3 (4.2-5.4); Red Cell Distribution Width 17.9 % (11.5-14.5)
--- NOTE | 2023-03-08 10:38 | SUR.PREOP ---
1025 MD HERE TO SEE PT. PT SURGERY CANCELLED FOR TODAY.
--- NOTE | 2023-03-08 10:57 | WPDHPUPDATE1 ---
History and Physical Update Update Date/Time: 03/08/23 10:57 History and Physical has been reviewed, including an updated exam of the patient. There are NO changes in the patient's condition. Risks, benefits, and alternatives have been discussed and questions answered. Patient agrees to proceed with procedure. dvt noted preop, sent to er for admission and care
[2023-03-08 11:09] LABS: Anisocytosis 1+ (NORMAL); Hypochromasia 1+ (NORMAL); Microcytosis 2+ (NORMAL); Platelet Estimate Adequate (Adequate); Schistocytes None Seen (NORMAL)
--- NOTE | 2023-03-08 11:35 | SUR.PREOP ---
1150 PT TO ER PER STRETCHER. WITH PT.
== END 2023-03-08 10:48 | disposition home or self-care (01) ==
PROVIDERS: PCP Family Medicine; Visit Provider Obstetrics & Gynecology
DX: R10.2 Pelvic and perineal pain (principal); D50.9 Iron deficiency anemia, unspecified; D25.9 Leiomyoma of uterus, unspecified; I82.412 Acute embolism and thrombosis of left femoral vein; I82.432 Acute embolism and thrombosis of left popliteal vein; I82.452 Acute embolism and thrombosis of left peroneal vein; I82.442 Acute embolism and thrombosis of left tibial vein; Z53.09 Procedure and treatment not carried out because of other contraindication
CPT/HCPCS: 36415; 85025; 86850; 86900; 86901; 93971; 99214; G0463; J7120

== ENCOUNTER 2023-03-08 10:50 | Observation (INO) | payer OTHER, SELFPAY ==
[2023-03-08] VITALS (14 sets, daily range): BP systolic 135–172; BP diastolic 61–99; PULSE 87–100; RESP 16–21; TEMP 36.4–36.6; O2SAT 96–100; BMI 27.6
--- NOTE | ~2023-03-08 | CT_ITS ---
EXAMINATION: CTA chest PE protocol DATE: 03/08/2023 12:56 INDICATION: Shortness of breath and chest discomfort . Deep venous thrombosis in the left lower limb. TECHNIQUE: Computed tomography (CT) pulmonary angiogram of the chest was performed with 100 mL Omnipa que-350 intravenous contrast. Additional 3D reconstructions utilizing coronal maximum intensity proje ction (MIP) were performed. Automated exposure control and iterative reconstruction technique were em ployed. The dose-length product was 310.71 mGy-cm. COMPARISON: None FINDINGS: Excellent contrast opacification of the pulmonary arteries. There is thrombus in the right main pulmo nary artery which extends into the upper, middle and lower lobar pulmonary arteries and basilar segme ntal branches. This appears occlusive in the superior segmental pulmonary artery of the right lower l obe. There is additional thrombus in the posterior segmental pulmonary artery of the left upper lobe and in the anteromedial basilar and posterior basilar segmental pulmonary arteries of the left lower lobe. Small pneumatocele at the azygos esophageal recess of the right lower lobe. Small linear bands of discoid atelectasis in the superior segment of the left lower lobe and in the lingula. No pneumoni a, pulmonary edema or pleural effusion. Heart size is normal. No leftward bowing of the ventricular s eptum to suggest right heart strain. No pericardial effusion. Thoracic aorta is normal in caliber wit h no dissection. No pathologically enlarged thoracic lymphadenopathy. Moderate-sized sliding-type hia nelida hernia. Visualized upper abdomen is unremarkable. Mild upper thoracic levocurvature with mild spo ndylosis. IMPRESSION: 1. Extensive bilateral pulmonary emboli involving the right main pulmonary artery and the majority of the lateral lumbar and segmental pulmonary arteries. No evidence of right heart strain. Dr. Smith discussed these findings with Dr. Moctezuma at 1:10 PM. 2. Moderate-sized sliding-type hiatal hernia. Reviewed, dictated and finalized at location A. ING HOUSE WORKER IMPRESSION: 1. Extensive bilateral pulmonary emboli involving the right main pulmonary marly ry and the majority of the lateral lumbar and segmental pulmonary arteries. No evidence of right heart strain. Dr. Smith discussed these findings with Dr. Moctezuma at 1:10 PM. 2. Moderate-sized sliding-type hiatal hernia.
--- NOTE | ~2023-03-08 | US_ITS ---
EXAMINATION:US venous doppler LE RT INDICATION:Extensive DVT TECHNIQUE: Multiple grayscale, color flow and Doppler images of the right lower extremity deep venous systems were obtained and reviewed. COMPARISON:No prior studies for comparison. FINDINGS: The common femoral, superficial femoral and popliteal veins demonstrate normal respiratory variation, augmentation and compressibility. Color flow is also seen within the posterior tibial, pe roneal, greater saphenous and profunda veins. IMPRESSION: 1: No lower extremity deep venous thrombosis. Reviewed, dictated and finalized at location A. ING CUTTER
--- NOTE | 2023-03-08 11:39 | ECG_ITS ---
Measurements Intervals [place] Rate: 88 P: 34 TX: 177 QRS: -14 QRSD: 90 T: -18 QT: 425 QTc: 516 Interpretive Statements SINUS RHYTHM VOLTAGE CRITERIA FOR LVH [MEETS CRITERIA IN ONE OF: R(aVL), S(V1), R(V5), R(V5/V6)+S(V1)] T-WAVE ABNORMALITY CONSIDER ANTERIOR ISCHEMIA ABNORMAL ECG COMPARED TO ECG 12/18/2022 15:39:47 PRECORDIAL T-WAVE INVERSION IS NOW SEEN Electronically Signed On 03-08-2023 15:20:13 IMPLEMENTATION TECHNICIAN by Manolo Sullivan M.D.
[2023-03-08 12:19] LABS: Basophils Absolute Auto 0.1 K/mm3 (0.0-0.1); Basophils Percent Auto 0.4 % (0.2-1.2); Eosinophils Percent Auto 0.2 % (0-4.4); Hematocrit 29.1 % (37.0-47.0); Hemoglobin 8.3 g/dL (12.0-15.0); Immature Granulocyte Absolute 0.05 K/mm3 (0.00-0.031); Immature Granulocyte Percent A 0.4 % (0-0.5); Lymphocytes Absolute Auto 1.21 K/mm3 (0.9-3.2); Lymphocytes Percent Auto 9.5 % (18.3-44.2); Mean Corpuscular HGB Conc 28.5 g/dl (32-36); Mean Corpuscular Hemoglobin 21.6 pg (26-34); Mean Corpuscular Volume 75.6 fl (80-100); Mean Platelet Volume 10.7 fl (7.4-10.4); Monocytes Absolute Auto 0.9 K/mm3 (0.1-0.6); Monocytes Percent Auto 7.3 % (2.6-8.5); Neutrophils Absolute Auto 10.5 K/mm3 (1.3-6.7); Neutrophils Percent Auto 82.2 % (45.5-73.1); Platelet Count Result 321 k/mm3 (150-375); Red Blood Count 3.85 M/mm3 (4.2-5.4); Red Cell Distribution Width 17.8 % (11.5-14.5); White Blood Count 12.8 K/mm3 (4.5-10.0)
[2023-03-08 12:28] LABS: Prothrombin Time 13.8 Seconds (11.1-14.7)
[2023-03-08 12:29] LABS: Partial Thromboplastin Time 28.7 SECONDS (22.3-36.8)
[2023-03-08 12:35] LABS: Alanine Aminotransferase 100 U/L (6-35); Albumin Level 3.4 g/dL (3.5-5.1); Alkaline Phosphatase 296 U/L (38-126); Anion Gap 11 mmol/L (8-16); Aspartate Amino Transferase 39 U/L (14-36); Bilirubin,Total 0.6 mg/dL (0.2-1.3); Blood Urea Nitrogen 10 mg/dL (7-17); Calcium 8.9 mg/dL (8.4-10.2); Carbon Dioxide 21 mmol/L (22-30); Chloride 104 mmol/L (98-107); Estimated CRCL calculation 78 ml/min; Estimated Glomerular Filt Rate > 60; Glucose 92 mg/dL (65-110); Sodium 136 mmol/L (137-145)
--- NOTE | 2023-03-08 12:37 | ED.EXTPRO ---
HPI - Extremity Problem General Chief complaint: Extremity Problem,Nontraumatic <Mag Moctezuma PA-C - Last Filed: 03/08/23 20:37> Stated complaint: Blood Clots in legs <Mag Moctezuma PA-C - Last Filed: 03/08/23 20:37> Time Seen by Provider: 03/08/23 11:02 <Mag Moctezuma PA-C - Last Filed: 03/08/23 20:37> Source: patient and old records reviewed <Mag Moctezuma PA-C - Last Filed: 03/08/23 20:37> Mode of arrival: ambulatory <ROSEMARIE Mackenzie Last Filed: 03/08/23 20:37> Limitations: no limitations <ROSEMARIE Mackenzie Last Filed: 03/08/23 20:37> History of Present Illness HPI Narrative: Patient is a 52-year-old female who presents the ED with report of left lower extremity DVT. Patient reports having pain in bilateral lower extremities, worse on the left, for the last week and a half. Over the last week she has noticed increased swelling into her left leg. It she also reports having heart palpitations, roaring heart, SOB and fatigue with exertion. She was scheduled to undergo elective hysterectomy by Dr. Ricky Rg today for uterine fibroids/pain/bleeding, but discussed these sx's and was referred for outpatient venous Doppler US LLE, which was positive for DVT. She was then sent here for further evaluation. Patient denies previous history of DVT, but does report an episode of superficial thrombophlebitis in her left upper extremity after her spinal surgery in December of this year. She is currently on estrogen OCP d/t hx of uterine bleeding. She does note that her mother had hx of blood clots. Patient does have history of anemia. She reports she has been eating a meat-only diet to try to boost her iron supplementation. <ROSEMARIE Mackenzie Last Filed: 03/08/23 20:37> Related Data Home medications: Home Medications Medication Instructions Recorded Confirmed losartan 50 mg tablet 50 mg PO HS 03/08/23 03/08/23 metoprolol succinate 100 mg 100 mg PO HS 03/08/23 03/08/23 tablet,extended release 24 hr pantoprazole 40 mg tablet,delayed 20 mg PO QHS 03/08/23 03/08/23 release <ROSEMARIE Mackenzie Last Filed: 03/08/23 20:37> Allergies/Adverse reactions: Allergies Allergy/AdvReac Type Severity Reaction Status Date / Time amlodipine AdvReac Intermediate Swelling Verified 03/14/23 14:17 Lactobacillus rhamnosus GG AdvReac Intermediate Nausea and Verified 03/14/23 14:17 [facility]] allopurinol AdvReac Mild Other Verified 03/14/23 14:17 lisinopril AdvReac Mild Cough Verified 03/14/23 14:17 <Mag Moctezuma PA-C - Last Filed: 03/08/23 20:37> Review of Systems Review of Systems: CONSTITUTIONAL: Denies fever, chills, or sweats. ENT: Denies rhinorrhea, congestion, sore throat. CARDIOVASCULAR: See HPI. RESPIRATORY: See HPI. GASTROINTESTINAL: Denies abdominal pain, nausea, vomiting GENITOURINARY: Denies dysuria or hematuria. MUSCULOSKELETAL: See HPI. NEUROLOGIC: Denies headache, dizziness, numbness, or weakness. <ROSEMARIE Mackenzie Last Filed: 03/08/23 20:37> All systems reviewed & are unremarkable except as noted in HPI and below <ROSEMARIE Mackenzie Last Filed: 03/08/23 20:37> [facility] Past Medical History Medical History: Medical History Anxiety BMI 26.0-26.9,adult BMI 27.0-27.9,adult GERD (gastroesophageal reflux disease) Gout Hypertension Iron deficiency anemia Post endometrial ablation syndrome Right elbow pain Thrombophlebitis Uterine fibroid <ROSEMARIE Mackenzie Last Filed: 03/08/23 20:37> Surgical History Surgical History: Surgical History History of Hx of spinal surgery <Mag Moctezuma PA-C - Last Filed: 03/08/23 20:37> Family History Family History: Fam
[2023-03-08 12:49] LABS: Troponin I < 0.012 ng/mL (0.000-0.034)
[2023-03-08] MEDS: HEPARIN SODIUM 5,000 UNITS/ML VIAL 5500 UNITS IV PUSH ×2 (13:29→20:07)
[2023-03-08] MEDS: HEPARIN SOD/D5W 100 UNITS/ML 25,000 UNITS/250 ML BAG 12 UNITS IV CONT (13:57)
--- NOTE | 2023-03-08 16:44 | ECG_ITS ---
Measurements Intervals [place] Rate: 94 P: 39 LA: 166 QRS: -14 QRSD: 93 T: -8 QT: 383 QTc: 481 Interpretive Statements SINUS RHYTHM MODERATE VOLTAGE CRITERIA FOR LVH, CONSIDER NORMAL VARIANT Anterior T-wave inversion is present, consider ischemia. COMPARED TO ECG 03/08/2023 12:08:25 NO SIGNIFICANT CHANGES Electronically Signed On 03-09-2023 8:58:44 WATERWORKS OPERATOR by Jacqueline Schwartz M.D.
[2023-03-08 17:29] LABS: Troponin I < 0.012 ng/mL (0.000-0.034)
--- NOTE | 2023-03-08 18:14 | ADMGEN ---
This patient, Gabrielle Whitney, was admitted to IMU Room 214-01. Patient/family oriented to hospital policies and general routines including ID bracelet, bed and alarms, visiting hours, pain management, procedures, bathroom and other care routines, personal items, smoking policy, room service/diet, and visiting hours. Information on how to activate the Rapid Response Team has been discussed. Patient/Family are encouraged to report perceived risks to care and to ask questions if they do not understand what they are told or what they should do.
[2023-03-08 18:52] LABS: Partial Thromboplastin Time 51.2 SECONDS (22.3-36.8)
[2023-03-08 18:54] LABS: Troponin I < 0.012 ng/mL (0.000-0.034)
--- NOTE | 2023-03-08 19:26 | PM.IMHP ---
H&P: HPI History of Present Illness Date/Time: 03/08/23 19:26 Chief Complaint: SOB, LLE Pain Narrative: 52 y/o F presents here with LLE pain and SOB with exertion with PMH of GERD, RIDDHI, uterine fibroid with excessive/heavy bleeding, and anxiety. Patient presented to the emergency department today after outpatient ultrasound of left lower extremity showed DVT. Patient was scheduled for elective hysterectomy with [facility] for uterine fibroids, pain, and bleeding. While in preop area she discussed the following symptoms: Patient reported that she developed shortness of breath, exhaustion, and heart palpitations on 02/25. Initially believed symptoms were related to a viral infection such as the flu or cold. Patient attempted to treat the symptoms with rest and hydration. Also noted her bilateral calves were bothering her, believed it to be discomfort/muscle aches due to recent workout. Then on 01/29 she began experiencing reduced appetite, nausea without vomiting, clamminess, and chilled. Then over the last week she has become progressively short of breath with exertion, fatigue, and left lower extremity more tender/swollen. Patient does not have a history DVT or pulmonary embolism, has experienced superficial thrombophlebitis in her left upper extremity post spinal surgery in December. She is currently on estrogen OCP for control the uterine bleeding secondary to the fibroid, has been on this medication since 2019. Not currently a smoker. Does not report any prolonged time periods of being sedentary such as a long car ride. Only new alteration is that she has been eating a current adverse diet for the past month in order to increase her iron intake to treat her current RIDDHI. Workup today revealed U/S of LLE showed deep venous thrombosis of the left common femoral vein, popliteal vein, posterior tibial veins, and peroneal trunk. CTA of chest showed extensive bilateral PEs involving the right main pulmonary artery and the majority of the lateral lumbar in segmental pulmonary arteries without evidence of right heart strain, moderate clot burden. Labs showed stable anemia with hemoglobin of 8.3, negative troponin x2, and mildly elevated LFTs. Review of Systems Review of Systems: All systems reviewed & are unremarkable except as noted in HPI and below PMFSH Past Medical History Medical History Anxiety BMI 27.0-27.9,adult GERD (gastroesophageal reflux disease) Gout Hypertension Iron deficiency anemia Post endometrial ablation syndrome Right elbow pain Thrombophlebitis Uterine fibroid Surgical History Surgical History History of Hx of spinal surgery Family History Family History Father Heart disease Acute myocardial infarction Mother Sepsis Arthritis Hypertension Sibling Acute myocardial infarction COVID-19 Sibling Hypertension Cerebrovascular accident COVID-19 Social History Social History Smoking status: Never smoker Second hand tobacco smoke exposure: Yes Alcohol intake: never Alcohol use details: RARE Substance use: never Substance use type: does not use Do You Feel Safe in your Home?: Yes Lack of Transportation: No Lack of Food: Never True Current Housing: I Have Housing Concerned About Future Housing: No Difficulty Paying Gas/Electric Bills: No Difficulty Paying for Meds: No Currently Unemployed: No Education: Decline to Answer Difficulty w/ Childcare or Family Care: No Living arrangements: with family Occupation/Education: occupation 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
[2023-03-08] MEDS: FLUTICASONE PROPIONATE 0.05% NA SPR 16 GM BTL (*BKC) 1 SPRAY NASAL (20:05)
[2023-03-09] VITALS (12 sets, daily range): BP systolic 125–143; BP diastolic 66–85; PULSE 74–91; RESP 14–18; TEMP 35.9–37.1; O2SAT 97–99
[2023-03-09 02:41] LABS: Basophils Absolute Auto 0.1 K/mm3 (0.0-0.1); Basophils Percent Auto 0.7 % (0.2-1.2); Eosinophils Absolute Auto 0.1 K/mm3 (0-0.3); Eosinophils Percent Auto 1.2 % (0-4.4); Hematocrit 28.6 % (37.0-47.0); Hemoglobin 7.9 g/dL (12.0-15.0); Immature Granulocyte Absolute 0.05 K/mm3 (0.00-0.031); Immature Granulocyte Percent A 0.5 % (0-0.5); Lymphocytes Absolute Auto 2.07 K/mm3 (0.9-3.2); Lymphocytes Percent Auto 19.4 % (18.3-44.2); Mean Corpuscular HGB Conc 27.6 g/dl (32-36); Mean Corpuscular Volume 76.1 fl (80-100); Monocytes Absolute Auto 0.9 K/mm3 (0.1-0.6); Monocytes Percent Auto 8.6 % (2.6-8.5); Neutrophils Absolute Auto 7.4 K/mm3 (1.3-6.7); Neutrophils Percent Auto 69.6 % (45.5-73.1); Platelet Count Result 346 k/mm3 (150-375); Red Blood Count 3.76 M/mm3 (4.2-5.4); Red Cell Distribution Width 17.8 % (11.5-14.5); White Blood Count 10.7 K/mm3 (4.5-10.0)
[2023-03-09 02:59] LABS: Partial Thromboplastin Time 45.8 SECONDS (22.3-36.8)
[2023-03-09 03:18] LABS: Platelet Estimate Adequate (Adequate)
[2023-03-09 03:19] LABS: Anisocytosis 1+ (NORMAL); Hypochromasia 1+ (NORMAL); Schistocytes None Seen (NORMAL)
[2023-03-09] MEDS: HEPARIN SODIUM 5,000 UNITS/ML VIAL 5500 UNITS IV PUSH (03:45)
[2023-03-09] MEDS: HEPARIN SOD/D5W 100 UNITS/ML 25,000 UNITS/250 ML BAG 18 UNITS IV CONT ×2 (06:54→22:29)
[2023-03-09 10:07] LABS: Partial Thromboplastin Time 88.2 SECONDS (22.3-36.8)
[2023-03-09] MEDS: IRON SUCROSE COMPLEX 500 MG in SODIUM CHLORIDE 0.9% IV 250 ML 176.67 MG IVPB (13:22)
[2023-03-09] MEDS: FLUTICASONE PROPIONATE 0.05% NA SPR 16 GM BTL (*BKC) 1 SPRAY NASAL ×2 (13:23→21:45)
--- NOTE | 2023-03-09 14:08 | PC.NURSE ---
This patient, Gabrielle Whitney, [facility] on [facility]09[facility]23 at 1408. Personal belongings sent with patient. Report given to Kyle WATTS. Appropriate documentation sent with patient.
--- NOTE | 2023-03-09 14:22 | PC.NURSE ---
This patient, Gabrielle Whitney, was received from IMU on 03/09/23 at 1422. Patient/family oriented to unit policies and routines
[2023-03-09] MEDS: traMADol HCL (*CRX) 50 MG TABLET PO (14:53)
--- NOTE | 2023-03-09 16:45 | PC.NURSE ---
Consult not completed as there is no superintendent recreation for hematology. Hospitalist Ryland verdugo.
[2023-03-09] MEDS: POLYSACCHARIDE IRON COMPLEX 150 MG CAPSULE PO (18:09)
--- NOTE | 2023-03-09 18:13 | PC.NURSE ---
When RN was administering evening medications. Patient stated that she already took home supply of Metoprolol, Protonix, and Losartan. RN educated patient that it is imperative she takes medication provided by hospital only so staffing can ensure she is not being double dosed on medications, because what she is taking from her home supply is not documented in the chart for all of our staff to see.
[2023-03-09 18:51] LABS: Partial Thromboplastin Time 89.3 SECONDS (22.3-36.8)
--- NOTE | 2023-03-09 18:52 | PM.IMPN ---
Progress Note: A&P Assessment and Plan (1) Acute deep vein thrombosis (DVT) of left lower extremity: Qualifiers: Affected thrombotic vein of extremity: unspecified vein of extremity Qualified Code(s): I82.402 - Acute embolism and thrombosis of unspecified deep veins of left lower extremity Code(s): I82.402 - Acute embolism and thrombosis of unspecified deep veins of left lower extremity Status: Acute (2) Pulmonary embolism: Qualifiers: Acute cor pulmonale presence: without acute cor pulmonale Chronicity: acute Pulmonary embolism type: unspecified Qualified Code(s): I26.99 - Other pulmonary embolism without acute cor pulmonale Code(s): I26.99 - Other pulmonary embolism without acute cor pulmonale Status: Acute (3) Anxiety: Code(s): F41.9 - Anxiety disorder, unspecified Status: Acute (4) Excessive bleeding: Code(s): R58 - Hemorrhage, not elsewhere classified Status: Acute (5) Pelvic pain: Code(s): R10.2 - Pelvic and perineal pain Status: Acute (6) Gout: Qualifiers: Gout site: multiple sites Gout etiology: idiopathic Chronicity: unspecified Qualified Code(s): M10.09 - Idiopathic gout, multiple sites Code(s): M10.9 - Gout, unspecified Status: Acute (7) Iron deficiency anemia: Qualifiers: Iron deficiency anemia type: chronic blood loss Qualified Code(s): D50.0 - Iron deficiency anemia secondary to blood loss (chronic) Code(s): D50.9 - Iron deficiency anemia, unspecified Status: Acute (8) Uterine fibroid: Qualifiers: Uterine leiomyoma location: unspecified location Qualified Code(s): D25.9 - Leiomyoma of uterus, unspecified Code(s): D25.9 - Leiomyoma of uterus, unspecified Status: Acute (9) Vitamin D deficiency, unspecified: Code(s): E55.9 - Vitamin D deficiency, unspecified Status: Acute (10) GERD (gastroesophageal reflux disease): Qualifiers: Esophagitis presence: esophagitis presence not specified Qualified Code(s): K21.9 - Gastro-esophageal reflux disease without esophagitis Code(s): K21.9 - Gastro-esophageal reflux disease without esophagitis Status: Acute (11) Hypertension: Qualifiers: Hypertension type: primary hypertension Qualified Code(s): I10 - Essential (primary) hypertension Code(s): I10 - Essential (primary) hypertension Status: Acute Plan Patient continue with current medications Spoke with patient in detail about her left lower extremity DVT causing bilateral PEs Patient has been on oral contraceptives for 4 years which is likely the precipitating cause of the blood clotting in the legs leading to clots in the lungs Continue with IV heparin drip Will start patient on oral anticoagulation upon discharge She has the finding consistent with a moderate to severe iron-deficiency anemia IV Venofer 500mg x2 days ordered in hospital She will continue with oral iron pills upon discharge Hematology-Oncology consult ordered for evaluation and treatment recommendations Advised patient to follow-up closely with OBGYN as an outpatient for elective hysterectomy which was due yesterday DC planning home in next day or 2 if she remains stable ? Patient seen and examined at bedside during my morning rounds ? Collaborated with patient's nurse at the bedside in detail and addressed all concerns ? Labs, electrolytes, radiology, investigations and test results reviewed ? Consult/Nursing/Ancilliary notes on the chart reviewed and appreciated ? Spoke with patient/ at the bedside and answered all the questions that they had Repeat labs in a.m. Electrolyte replacement as per protocol. Patient will be monitored very closely on the floor. Further recommendations as per the hospital course. Subjective Date/time seen: 03/09/23 18:52 Interval history: Patient seen and evaluated at bedside.
[2023-03-09] MEDS: MICONAZOLE NITRATE 2% VAGINAL CREAM 45 GM TUBE 1 APPFUL VAGINAL (23:22)
[2023-03-10] VITALS: PULSE 71
[2023-03-10 00:58] VITALS: BP 135/76; PULSE 79; RESP 20; TEMP 37.2; O2SAT 96
[2023-03-10 04:00] VITALS: PULSE 64
[2023-03-10 06:00] VITALS: BP 146/74; PULSE 69; RESP 16; TEMP 36.1; O2SAT 97
[2023-03-10 06:42] LABS: Basophils Absolute Auto 0.1 K/mm3 (0.0-0.1); Basophils Percent Auto 0.7 % (0.2-1.2); Eosinophils Absolute Auto 0.2 K/mm3 (0-0.3); Eosinophils Percent Auto 2.1 % (0-4.4); Hematocrit 30.9 % (37.0-47.0); Hemoglobin 8.3 g/dL (12.0-15.0); Immature Granulocyte Absolute 0.07 K/mm3 (0.00-0.031); Immature Granulocyte Percent A 0.8 % (0-0.5); Lymphocytes Absolute Auto 1.57 K/mm3 (0.9-3.2); Lymphocytes Percent Auto 19.1 % (18.3-44.2); Mean Corpuscular HGB Conc 26.9 g/dl (32-36); Mean Corpuscular Hemoglobin 20.8 pg (26-34); Mean Corpuscular Volume 77.4 fl (80-100); Mean Platelet Volume 10.4 fl (7.4-10.4); Monocytes Absolute Auto 0.8 K/mm3 (0.1-0.6); Monocytes Percent Auto 9.6 % (2.6-8.5); Neutrophils Absolute Auto 5.6 K/mm3 (1.3-6.7); Neutrophils Percent Auto 67.7 % (45.5-73.1); Platelet Count Result 371 k/mm3 (150-375); Red Blood Count 3.99 M/mm3 (4.2-5.4); Red Cell Distribution Width 17.9 % (11.5-14.5); White Blood Count 8.2 K/mm3 (4.5-10.0)
[2023-03-10 08:00] VITALS: PULSE 69
[2023-03-10 08:13] LABS: Partial Thromboplastin Time 116.2 SECONDS (22.3-36.8)
[2023-03-10 09:06] LABS: Hypochromasia 1+ (NORMAL); Macrocytosis 1+ (NORMAL); Platelet Estimate Adequate (Adequate); Schistocytes None Seen (NORMAL)
[2023-03-10 09:17] LABS: Alanine Aminotransferase 61 U/L (6-35); Albumin Level 3.1 g/dL (3.5-5.1); Alkaline Phosphatase 290 U/L (38-126); Anion Gap 6 mmol/L (8-16); Aspartate Amino Transferase 27 U/L (14-36); Bilirubin,Total 0.4 mg/dL (0.2-1.3); Blood Urea Nitrogen 7 mg/dL (7-17); Calcium 9.3 mg/dL (8.4-10.2); Carbon Dioxide 26 mmol/L (22-30); Chloride 106 mmol/L (98-107); Estimated CRCL calculation 79 ml/min; Estimated Glomerular Filt Rate > 60; Glucose 98 mg/dL (65-110); Magnesium 2.1 mg/dL (1.6-2.3); Phosphorus 4.3 mg/dL (2.5-4.5); Potassium 3.5 mmol/L (3.4-5.0); Sodium 138 mmol/L (137-145)
[2023-03-10] MEDS: FLUTICASONE PROPIONATE 0.05% NA SPR 16 GM BTL (*BKC) 1 SPRAY NASAL (09:22)
[2023-03-10] MEDS: APIXABAN 5 MG TABLET 10 MG PO (11:33)
[2023-03-10] MEDS: IRON SUCROSE COMPLEX 500 MG in SODIUM CHLORIDE 0.9% IV 250 ML 176.67 MG IVPB (11:40)
[2023-03-10 12:00] VITALS: PULSE 76
[2023-03-10 13:25] LABS: Free T4 Free Thyroxine Reflex 1.26 ng/dL (0.78-2.19)
--- NOTE | 2023-03-10 13:33 | PM.DS ---
DS: Admitting Diagnosis Discharge Date 03/10/2023: Admitting Diagnosis Left lower extremity DVT Bilateral pulmonary emboli Iron deficiency anemia DS: Discharge Diagnosis Discharge Diagnosis (1) Acute deep vein thrombosis (DVT) of left lower extremity: Qualifiers: Affected thrombotic vein of extremity: unspecified vein of extremity Qualified Code(s): I82.402 - Acute embolism and thrombosis of unspecified deep veins of left lower extremity Code(s): I82.402 - Acute embolism and thrombosis of unspecified deep veins of left lower extremity Status: Acute (2) Anemia: Qualifiers: Anemia type: unspecified type Qualified Code(s): D64.9 - Anemia, unspecified Code(s): D64.9 - Anemia, unspecified Status: Acute (3) Pulmonary embolism: Qualifiers: Acute cor pulmonale presence: without acute cor pulmonale Chronicity: acute Pulmonary embolism type: unspecified Qualified Code(s): I26.99 - Other pulmonary embolism without acute cor pulmonale Code(s): I26.99 - Other pulmonary embolism without acute cor pulmonale Status: Acute (4) Anxiety: Code(s): F41.9 - Anxiety disorder, unspecified Status: Acute (5) Excessive bleeding: Code(s): R58 - Hemorrhage, not elsewhere classified Status: Acute (6) Iron deficiency anemia: Qualifiers: Iron deficiency anemia type: chronic blood loss Qualified Code(s): D50.0 - Iron deficiency anemia secondary to blood loss (chronic) Code(s): D50.9 - Iron deficiency anemia, unspecified Status: Acute (7) Uterine fibroid: Qualifiers: Uterine leiomyoma location: unspecified location Qualified Code(s): D25.9 - Leiomyoma of uterus, unspecified Code(s): D25.9 - Leiomyoma of uterus, unspecified Status: Acute (8) GERD (gastroesophageal reflux disease): Qualifiers: Esophagitis presence: esophagitis presence not specified Qualified Code(s): K21.9 - Gastro-esophageal reflux disease without esophagitis Code(s): K21.9 - Gastro-esophageal reflux disease without esophagitis Status: Acute (9) Hypertension: Qualifiers: Hypertension type: primary hypertension Qualified Code(s): I10 - Essential (primary) hypertension Code(s): I10 - Essential (primary) hypertension Status: Acute DS: Summary Hospital Course Reason for hospitalization: Patient scheduled for elective hysterectomy when she was sent to the ER for evaluation from the OR holding due to left lower extremity pain and swelling as well as shortness of breath with exertion. Hospital Course: H&P: HPI History of Present Illness Date/Time: 03/08/23? 19:26 Chief Complaint: SOB, LLE Pain Narrative: 52 y/o F presents here with LLE pain and SOB with exertion with PMH of GERD, RIDDHI, uterine fibroid with excessive/heavy bleeding, and anxiety. Patient presented to the emergency department today after outpatient ultrasound of left lower extremity showed DVT.? Patient was scheduled for elective hysterectomy with [facility] for uterine fibroids, pain, and bleeding.? While in preop area she discussed the following symptoms:? Patient reported that she developed shortness of breath, exhaustion, and heart palpitations on 02/25.? Initially believed symptoms were related to a viral infection such as the flu or cold.? Patient attempted to treat the symptoms with rest and hydration.? Also noted her bilateral calves were bothering her, believed it to be discomfort/muscle aches due to recent workout.? Then on 01/29 she began experiencing reduced appetite, nausea without vomiting, clamminess, and chilled.? Then over the last week she has become progressively short of breath with exertion, fatigue, and left lower extremity more tender/swollen.? Patient does not have a history DVT or pulmonary embolism, has experienced superficial thrombophlebitis in her left upper extremity post spinal s
[2023-03-10 20:31] LABS: Total Triiodothyronine (T3) 1.69 NG/ML (0.97-1.69)
== END 2023-03-10 14:35 | disposition home or self-care (01) ==
LOC: ANHED 14:21 → ANHIMU 03-09 07:46 → ANH3MED 03-10 13:56 → ANHIMU 03-15 06:23 → ANH3MED 03-15 06:23
PROVIDERS: Internal Medicine; Student in an Organized Health Care Education/Training Program; Admitting Provider Hospitalist; Emergency Provider Physician Assistant; PCP Family Medicine; Visit Provider Family Medicine
DX: I82.402 Acute embolism and thrombosis of unspecified deep veins of left lower extremity (principal); D64.9 Anemia, unspecified; I26.99 Other pulmonary embolism without acute cor pulmonale; F41.9 Anxiety disorder, unspecified; D50.9 Iron deficiency anemia, unspecified; D25.9 Leiomyoma of uterus, unspecified; K21.9 Gastro-esophageal reflux disease without esophagitis; I10 Essential (primary) hypertension; M10.9 Gout, unspecified; E55.9 Vitamin D deficiency, unspecified; K44.9 Diaphragmatic hernia without obstruction or gangrene; R94.31 Abnormal electrocardiogram [ECG] [EKG]; R53.83 Other fatigue; Z82.49 Family history of ischemic heart disease and other diseases of the circulatory system
CPT/HCPCS: 36415; 71275; 80053; 83735; 84100; 84439; 84443; 84480; 84484; 85025; 85610; 85730; 86850; 86900; 86901; 93005; 93971; 96365; 96366; 99214; 99285; A9270; G0378; G0463; J1644; J1756; J7050; J7120; Q9967

== ENCOUNTER 2023-03-21 15:01 | Outpatient (CLI) | payer OTHER, SELFPAY ==
--- NOTE | ~2023-03-21 | CT_ITS ---
EXAMINATION: CT abdomen pelvis w con DATE: 03/21/2023 15:22 INDICATION: Abdominal pain. Chronic anemia. TECHNIQUE: Computed tomography (CT) of the abdomen and pelvis was performed with 100 mL Omnipaque 350 intravenous contrast. Automated exposure control and iterative reconstruction technique were employe d. The dose-length product was 511.20 mGy-cm. COMPARISON: Chest CT 03/08/2023 FINDINGS: The visualized portions of the lung bases demonstrate mild atelectasis. There is a pneumato glory in right lower lobe. No pleural effusion. The heart size is normal. No pericardial effusion. The re is a moderate-sized sliding hiatal hernia. The liver, gallbladder, spleen, pancreas, adrenal gland s, and kidneys are normal. There are multiple fibroids in the uterus. The uterus measures 12.5 x 9.7 x 11.0 cm. There are no dilated loops of bowel. The appendix is normal. There are no pathologically e nlarged lymph nodes. There is no free intraperitoneal fluid. There is a right inguinal hernia contain ing fat. There is severe lower lumbar spondylosis. 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 IMPRESSION: 1. Moderate-sized sliding hiatal hernia. 2. Uterine fibroids. 3. Right inguinal hernia containing fat. Reviewed, dictated and finalized at location E. [facility]
== END 2023-03-21 15:02 | disposition home or self-care (01) ==
LOC: ANHIMG 15:02
PROVIDERS: PCP Family Medicine; Visit Provider Internal Medicine Hematology & Oncology
DX: D64.9 Anemia, unspecified (principal); R10.9 Unspecified abdominal pain; D25.9 Leiomyoma of uterus, unspecified; K40.90 Unilateral inguinal hernia, without obstruction or gangrene, not specified as recurrent; K44.9 Diaphragmatic hernia without obstruction or gangrene
CPT/HCPCS: 74177; Q9967

== ENCOUNTER 2023-03-27 15:52 | Outpatient (CLI) | payer OTHER, SELFPAY ==
[2023-03-27 16:08] LABS: Hematocrit 34.2 % (37.0-47.0); Hemoglobin 10.2 g/dL (12.0-15.0); Mean Corpuscular HGB Conc 29.8 g/dl (32-36); Mean Corpuscular Hemoglobin 25.2 pg (26-34); Mean Corpuscular Volume 84.7 fl (80-100); Platelet Count Result 376 k/mm3 (150-375); Red Blood Count 4.04 M/mm3 (4.2-5.4); Red Cell Distribution Width 25.3 % (11.5-14.5); White Blood Count 8.3 K/mm3 (4.5-10.0)
[2023-03-27 17:42] LABS: Folic Acid 5.8 ng/mL (2.76->20)
[2023-03-27 17:50] LABS: Iron 69 ug/dL (37-170)
[2023-03-27 17:59] LABS: Percent Iron Saturation 20 % (20-50)
== END 2023-03-27 15:53 | disposition home or self-care (01) ==
LOC: ANHLAB 15:54
PROVIDERS: PCP Family Medicine; Visit Provider Internal Medicine Hematology & Oncology
DX: D64.9 Anemia, unspecified (principal)
CPT/HCPCS: 36415; 82607; 82728; 82746; 83540; 83550; 85027

== ENCOUNTER 2023-04-11 11:37 | Outpatient (CLI) | payer OTHER, SELFPAY ==
--- NOTE | 2023-04-11 15:06 | ECG_ITS ---
Measurements Intervals [place] Rate: 77 P: -3 CA: 160 QRS: -7 QRSD: 75 T: 3 QT: 379 QTc: 429 Interpretive Statements SINUS RHYTHM DELAYED PRECORDIAL R/S TRANSITION VOLTAGE CRITERIA FOR LVH INFERIOR INFARCT, AGE INDETERMINATE BORDERLINE T WAVE ABNORMALITY- ANTERIOR LEADS BASELINE ARTIFACT- I, II, III, AVR, AVL, AVF, V1, V4-V6 ABNORMAL ECG COMPARED TO ECG 03/08/2023 17:00:35 NO SIGNIFICANT CHANGES Electronically Signed On 04-11-2023 15:29:47 TUYERE FITTER by Torres Silverman D.O.
[2023-04-11 15:31] LABS: Hematocrit 32.4 % (37.0-47.0); Hemoglobin 9.4 g/dL (12.0-15.0); Mean Corpuscular Hemoglobin 26.6 pg (26-34); Mean Corpuscular Volume 91.8 fl (80-100); Mean Platelet Volume 10.5 fl (7.4-10.4); Platelet Count Result 316 k/mm3 (150-375); Red Blood Count 3.53 M/mm3 (4.2-5.4)
== END 2023-04-11 11:38 | disposition home or self-care (01) ==
PROVIDERS: PCP Family Medicine; Visit Provider Obstetrics & Gynecology
DX: N93.9 Abnormal uterine and vaginal bleeding, unspecified (principal); I10 Essential (primary) hypertension; Z01.818 Encounter for other preprocedural examination; R94.31 Abnormal electrocardiogram [ECG] [EKG]
CPT/HCPCS: 36415; 85027; 86850; 86900; 86901; 93005

== ENCOUNTER 2023-04-19 00:22 | Day surgery (SDC) | payer OTHER, SELFPAY ==
--- NOTE | 2023-04-08 14:08 | PC.NURSE ---
Report to the Outpatient Waiting Room, entrance under the green pavilion located off [facility], at time 0930 on date 04/19/23. Planned Procedure Time: 1130. Time changes happen often and if your time is changed the preop area will call you the afternoon before. - You and your visitor will be asked to self-screen and do not enter if you have any COVID symptoms. - A mask is optional within the hospital at this time. Patients may have clear liquids (water, carbonated beverages, clear teas, apple juice) until 3 hours prior to surgery with a maximum of 20 ounces. 0830 - No food from midnight until time of surgery - Infants may have breast milk until 4 hours before surgery, formula 6 hours prior to surgery. - Children will be allowed to drink immediately following surgery. If applicable, please bring a bottle or sippy cup to assist with drinking. Juice, water, soda, and popsicles are readily available. For infants on formula, please bring formula the day of surgery. Pacifiers are allowed. Take the following medications with a SIP of water the morning of surgery: none DO NOT STOP ANY OF YOUR OTHER PRESCRIPTION MEDICATIONS PRIOR TO SURGERY ?EXCEPT THE FOLLOWING Medications to discontinue per physician vitamins & supplements, losartan, progesterone, pantoprazole Date to take last dose Patient has instructions regarding stopping Eliquis prior to surgery. Patient will transition to lovenox 7 days before surgery, and stop lovenox 24 hours prior to surgery per physicians orders. Please no make-up, nail french, hairspray, perfume, deodorant, or body powder the day of surgery. No jewelry (including any body piercings) or valuables the day of surgery, leave them at home. Please take a shower or bath the night before, or the morning of, surgery with an antibacterial soap. Wear comfortable, loose fitting clothing. Children are encouraged to wear pajamas. - Jewelry must be removed prior to entering the operating room. Rings and piercings that are not removed may be cut off. - The hospital will not accept responsibility for valuables. - Please leave all valuables, including medications, at home the day of surgery. If you are going home after surgery, a licensed wedding transportation driver must drive you home. - NO public transportation without another adult if you receive anesthesia. - We recommend that an adult stay with you for 24 hours following discharge. - We also recommend that you do not drive, make important decision, drink alcoholic beverages, or take any drugs that were not prescribed by your health care provider for at least 24 hours after your discharge time. For Pediatric surgeries, we recommend two adults accompany the child home. Follow any additional instructions given to you from your surgeon. If you or anyone in your household have experienced Covid symptoms in the past week, please notify your surgeon or the nurse liaison at the phone number below for possible testing. Telephone instructions given to Patient- Gabrielle Whitney and asked if any additional questions and then verbalized understanding. Patient advised to call surgeon office or pre surgery nurse liaison [phone] if any additional questions.
[2023-04-08 14:21] VITALS: BMI 26.0
--- NOTE | 2023-04-16 07:33 | PM.IMHP ---
H&P: HPI History of Present Illness Date/Time: 04/16/23 07:33 Chief Complaint: Vaginal bleeding Narrative: This is a 53-year-old female admitted for hysterectomy and bilateral salpingo-oophorectomy secondary to excessive heavy bleeding. This patient was originally scheduled for this hysterectomy a couple months ago. She did up with a DVT and a pulmonary embolism. She has been placed on blood thinners and was doing okay continues to have heavy bleeding. She has consulted with the metal or wood blocker who believes that she should undergo this hysterectomy now that her pulmonary embolism and DVT is controlled. Risks and benefits were reviewed in great detail. Dr. Schwarz are shot will control her blood thinners before and after. She had all questions answered and asked to proceed PMFSH Past Medical History Medical History Anxiety BMI 26.0-26.9,adult BMI 27.0-27.9,adult GERD (gastroesophageal reflux disease) Gout Hypertension Iron deficiency anemia Post endometrial ablation syndrome Right elbow pain Thrombophlebitis Uterine fibroid Surgical History Surgical History History of Hx of spinal surgery Family History Family History Father Heart disease Acute myocardial infarction Mother Sepsis Arthritis Hypertension Sibling Acute myocardial infarction COVID-19 Sibling Hypertension Cerebrovascular accident COVID-19 Social History Social History Smoking status: Never smoker Second hand tobacco smoke exposure: Yes Alcohol intake: never Alcohol use details: RARE Substance use: never Substance use type: does not use Do You Feel Safe in your Home?: Yes Lack of Transportation: No Lack of Food: Never True Current Housing: I Have Housing Concerned About Future Housing: No Difficulty Paying Gas/Electric Bills: No Difficulty Paying for Meds: No Currently Unemployed: No Education: Decline to Answer Difficulty w/ Childcare or Family Care: No Living arrangements: with family Occupation/Education: occupation 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[employer] Gender identity (if verbalized by the patient): Female Sexual Orientation (if Verbalized by the Patient): Straight or Heterosexual Spiritual care concerns: No Meds Home Medications and Allergies Home Medications Medication Instructions Recorded Confirmed Type losartan 50 mg tablet 50 mg PO HS 03/08/23 04/10/23 History metoprolol succinate 100 mg 100 mg PO HS 03/08/23 04/10/23 History tablet,extended release 24 hr pantoprazole 40 mg tablet,delayed 20 mg PO QHS 03/08/23 04/10/23 History release apixaban 5 mg tablet (Eliquis) 5 mg PO BID #75 tabs 03/10/23 04/10/23 Rx ferrous sulfate 324 mg (65 mg 324 mg PO BID #60 tabs 03/10/23 04/10/23 Rx iron) tablet,delayed release B Complex-Vitamin B12 2 tab-cap PO DAILY 04/08/23 04/10/23 History ascorbic acid (vitamin C) 1 cap PO DAILY 04/08/23 04/10/23 History magnesium citrate 1 cap PO DAILY 04/08/23 04/10/23 History medroxyprogesterone 10 mg tablet 10 mg PO TID 04/08/23 04/10/23 History hydrocodone 5 mg-acetaminophen 325 1 tablet PO Q4H PRN pain #20 tabs 04/12/23 Rx mg tablet Allergies Allergy/AdvReac Type Severity Reaction Status Date / Time amlodipine AdvReac Intermediate Swelling Verified 04/10/23 14:36 Lactobacillus rhamnosus GG AdvReac Intermediate Nausea and Verified 04/10/23 14:36 [From Lewis Cadena Vomiting Probiotics] allopurinol AdvReac Mild Other Verified 04/10/23 14:36 lisinopril AdvReac Mild Cough Verified 04/10/23 14:36 Exam Const: General: cooperative, healthy appearing and comfortable Nutritional Appearance: average body h
[2023-04-19] VITALS (13 sets, daily range): BP systolic 144–174; BP diastolic 75–91; PULSE 65–85; RESP 12–20; TEMP 36.2–37.1; O2SAT 98–100; BMI 26.2
--- NOTE | 2023-04-19 06:32 | WPDHPUPDATE1 ---
History and Physical Update Update Date/Time: 04/19/23 06:32 History and Physical has been reviewed, including an updated exam of the patient. There are NO changes in the patient's condition. Risks, benefits, and alternatives have been discussed and questions answered. Patient agrees to proceed with procedure.
[2023-04-19] MEDS: KETOROLAC 15 MG/ML VIAL (*BKC) IV PUSH (08:48)
[2023-04-19 08:58] LABS: INR 0.9; Partial Thromboplastin Time 30.8 SECONDS (22.3-36.8); Prothrombin Time 12.9 Seconds (11.1-14.7)
--- NOTE | 2023-04-19 09:02 | WPDANESEPPF ---
Anes - Initial Pre Proc Eval Procedure: Operation Date: 04/19/23 11:30 Proposed Procedures p Robotic Assisted Total Vaginal Hysterectomy with Bilateral Salpingo-oophorectomy - Louis Rg MD Date/Time: 04/19/23 09:02 Surgeon: Louis Rg MD Pre Op Diagnosis: Enlarged uterus,fibroids,exc Bleed,fail ablation Patient Data Age: 53 Gender: F Height: 1.7 m Weight: 75.4 kg Allergies Allergy/AdvReac Type Severity Reaction Status Date / Time amlodipine AdvReac Intermediate Swelling Verified 04/10/23 14:36 Lactobacillus rhamnosus GG AdvReac Intermediate Nausea and Verified 04/10/23 14:36 [From Lewis Cadena Vomiting Probiotics] allopurinol AdvReac Mild Other Verified 04/10/23 14:36 lisinopril AdvReac Mild Cough Verified 04/10/23 14:36 Home Medications Medication Instructions Recorded Confirmed Type losartan 50 mg tablet 50 mg PO HS 03/08/23 04/19/23 History metoprolol succinate 100 mg 100 mg PO HS 03/08/23 04/19/23 History tablet,extended release 24 hr pantoprazole 40 mg tablet,delayed 20 mg PO QHS 03/08/23 04/19/23 History release apixaban 5 mg tablet (Eliquis) 5 mg PO BID #75 tabs 03/10/23 04/19/23 Rx ferrous sulfate 324 mg (65 mg 324 mg PO BID #60 tabs 03/10/23 04/19/23 Rx iron) tablet,delayed release B Complex-Vitamin B12 2 tab-cap PO DAILY 04/08/23 04/19/23 History ascorbic acid (vitamin C) 1 cap PO DAILY 04/08/23 04/19/23 History magnesium citrate 1 cap PO DAILY 04/08/23 04/19/23 History hydrocodone 5 mg-acetaminophen 325 1 tablet PO Q4H PRN pain #20 tabs 04/12/23 Rx mg tablet hydrocodone 5 mg-acetaminophen 325 1 tablet PO Q4H PRN pain #20 tabs 04/19/23 Rx mg tablet Laboratory Tests 04/19/23 08:29 PT 12.9 Seconds (11.1-14.7) INR 0.9 APTT 30.8 SECONDS (22.3-36.8) Patient hx anesthesia problems: other (headache) Family hx anesthesia problems: none Results Review: All pre-operative results and documents have been reviewed as part of the pre-operative evaluation. [facility] Past Medical History Medical History Anxiety BMI 26.0-26.9,adult BMI 27.0-27.9,adult GERD (gastroesophageal reflux disease) Gout Hypertension Iron deficiency anemia Post endometrial ablation syndrome Right elbow pain Thrombophlebitis Uterine fibroid Surgical History Surgical History History of Hx of spinal surgery Family History Family History Father Heart disease Acute myocardial infarction Mother Sepsis Arthritis Hypertension Sibling Acute myocardial infarction COVID-19 Sibling Hypertension Cerebrovascular accident COVID-19 Social History Social History Smoking status: Never smoker Second hand tobacco smoke exposure: Yes Alcohol intake: never Alcohol use details: RARE Substance use: never Substance use type: does not use Do You Feel Safe in your Home?: Yes Lack of Transportation: No Lack of Food: Never True Current Housing: I Have Housing Concerned About Future Housing: No Difficulty Paying Gas/Electric Bills: No Difficulty Paying for Meds: No Currently Unemployed: No Education: Decline to Answer Difficulty w/ Childcare or Family Care: No Living arrangements: with family Occupation/Education: occupation 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
[2023-04-19] MEDS: SCOPOLAMINE 1 MG PATCH 1 PATCH TRANSDERM (09:13)
[2023-04-19] MEDS: LACTATED RINGERS 1,000 ML 30 ML IV CONT ×2 (09:14→11:21)
[2023-04-19] MEDS: ceFAZolin 2 GM/D5W 50 ML 2 GM/50 ML BAG IVPB (09:45)
--- NOTE | 2023-04-19 10:10 | SUR.OPER ---
See provider notes for 03/09 DVT and PE treatment plan. Due to patient report of remaining numbness in left foot upon preop assessment interview with this RN. No further symptoms or visible signs of DVT present in lower extremities. Anesthesiologist was updated by this RN, left SCD removed and right SCD continued (active prior to induction of anesthesia) Placed in proper lithotomy position by this RN and COREMAKER SUPERVISOR.
--- NOTE | 2023-04-19 11:08 | W.PM.PROC2 ---
Procedure Note - Detailed Date of Procedure 04/19/23 Pre-op Diagnosis Enlarged uterus,fibroids,exc Bleed,fail ablation Post-op Diagnosis Same Procedure Performed Robotic total vaginal hysterectomy and bilateral salpingo-oophorectomy Surgeon Louis Rg MD Anesthesia General Indications this is a 53-year-old female with a excessive heavy bleeding in multiple large fibroids Findings markedly enlarged uterus with a small sized uterus fibroids there. Description of Procedure Patient was prepped draped in normal sterile fashion placed in the dorsal lithotomy position. Under excellent general trach anesthesia weighted speculum placed posterior fornix vagina. Anterior lip the cervix grasped with single-tooth tenaculum uterus sounded to 11cm. Serial dilatation with fragmented dilators performed followed by passage of the 10. ALESIA and the 3. Cold cup. Next the 16 Dominican catheter was placed in the bladder clear urine was noted and the weighted speculum and single-tooth was removed. The gloves were changed. A supraumbilical incision made Veress needle passed in the. With CO2 gas to 15 the 8 trocar advanced. Downside visualized no seen. Patient placed in Trendelenburg and right left lateral quadrant incision made. 8Mm trocars advanced under direct visualization assuring injury and right upper quadrant incision made the 8 trocar advanced visualization assuring was docked. Attention was turned to the career placement services counselor. The uterus was large and irregular. The round ligament anteriorly on the left was grasped, burned, cut. Anteriorly a bladder flap was formed by sharply dissecting the peritoneum and reflecting the bladder caudally away from the cervix and uterus to the opposite round ligament was clamped, burned, cut. Next infundibulopelvic structure was skeletonized on the left clamping burning cutting and bringing this to the previously cut round ligament to remove the left ovary and tube. Like fashion remove the right fallopian tube infundibulopelvic structure was skeletonized clamping burning cutting and removing this to the previously cut ligament next the cardinal broad ligaments on the left were serially skeletonized clamping burningCutting a Steve down to the level of uterine vessels. The uterine vessels were individually clamped, burned, cut. In similar fashion the cardinal broad ligaments on the right were serially skeletonized clamping burning cutting and hugging the cervix and uterus until the uterine vessels could be seen on the right. Uterine vessels were then individually clamped, burned, cut. The uterus was then bivalved and large baseball sized fibroids were dissected and left hanging to remove the uterus cervix and tubes through the vagina in the form of the snow cone. This was then normal there were all removed through the vagina. Hemostasis was assured. The vagina was closed with continuous running 0V lock from lateral edge to lateral edge back to the midline. Irrigation subcutaneous layer and the skin closed with then with 4 Monocryl and glue after the robot had been undocked gas removed. The patient was awakened went to recovery in satisfactory condition. All sponge, needle, instrument counts were correct. There were no immediate complications noted Estimated Blood Loss 25 Drains No Packing No Pathology Yes Complications No immediate complications Condition Stable Disposition PACU
--- NOTE | 2023-04-19 11:12 | P.DS_ITS ---
DS: Admitting Diagnosis Discharge Date 04/20/2023 Admitting Diagnosis symptomatic uterine fibroids and bleeding DS: Discharge Diagnosis Discharge Diagnosis (1) Enlarged uterus: Code(s): N85.2 - Hypertrophy of uterus Status: Acute (2) Anemia: Qualifiers: Anemia type: unspecified type Qualified Code(s): D64.9 - Anemia, unspecified Code(s): D64.9 - Anemia, unspecified Status: Acute (3) Excessive bleeding: Code(s): R58 - Hemorrhage, not elsewhere classified Status: Acute DS: Summary Hospital Course Reason for hospitalization: patient was admitted for robotic hysterectomy and bilateral salpingo- oophorectomy. Hospital Course: Patient had unremarkable procedure with a markedly enlarged uterus. Hospital course unremarkable. She remained afebrile. She was ambulating, voiding without difficulty, eating regular diet, and generally without complaints. Time Spent with Patient Time attestation: Total time spent providing and/or coordinating discharge services: Exam Const: General: cooperative, healthy appearing and comfortable Nutritional Appearance: average body habitus Orientation/consciousness: oriented to person, oriented to place and oriented to time HENMT: Head: normal to inspection Resp: Effort & Inspection: normal respiratory effort Cardio: Rate: regular rate Rhythm: regular rhythm Heart sounds: S1 normal heart sound present and S2 normal heart sound present GI: Inspection: normal to inspection and incision ( Wounds were clean dry and intact) DS: Data Data Completed and Pending Pending studies at discharge: Pending at discharge 04/19/23 10:57 Surgical [PTH] Routine Labs on day of discharge: Labs from last 24 hours 04/19/23 08:29 PT 12.9 INR 0.9 APTT 30.8 Discharge Plan Discharge Patient Disposition: Home, Self-Care Stand Alone Forms: General Discharge Instructions Follow-up/Referrals: Louis Bernstein MD [Physician] - Discharge Medications: New hydrocodone-acetaminophen 5-325 mg tablet 1 tablet PO Q4H PRN (Reason: pain) Qty: 20 0RF No Action pantoprazole 40 mg tablet,delayed release (DR/EC) 20 mg PO QHS Patient Comments: Pt takes her medications at 1800. Rx Instructions: Pt takes her medications at 1800. losartan 50 mg tablet 50 mg PO HS Patient Comments: Pt takes her medications at 1800. Rx Instructions: Pt takes her medications at 1800. metoprolol succinate 100 mg tablet extended release 24 hr 100 mg PO HS Patient Comments: Pt takes her medications at 1800. Rx Instructions: Pt takes her medications at 1800. Eliquis 5 mg tablet 5 mg PO BID Qty: 75 0RF ferrous sulfate 324 mg (65 mg iron) tablet,delayed release (DR/EC) 324 mg PO BID Qty: 60 0RF B Complex-Vitamin B12 2 tab-cap PO DAILY ascorbic acid (vitamin C) 1 cap PO DAILY magnesium citrate 1 cap PO DAILY enoxaparin 80 mg/0.8 mL syringe 80 mg subcut Q12H hydrocodone-acetaminophen 5-325 mg tablet 1 tablet PO Q4H PRN (Reason: pain) Qty: 20 0RF
[2023-04-19] MEDS: ONDANSETRON INJ 4 MG/2 ML VIAL IV PUSH (11:52)
[2023-04-19] MEDS: fentaNYL CITRATE INJ (*CRX) 100 MCG/2 ML VIAL 25 MCG IV PUSH ×3 (12:03→12:38)
[2023-04-19] MEDS: DEXTROSE 5%/LACTATED RINGERS 1,000 ML 125 ML IV CONT (13:32)
[2023-04-19] MEDS: KETOROLAC 30 MG/ML VIAL (*BKC) IV PUSH (13:34)
[2023-04-19] MEDS: SIMETHICONE 80 MG TAB.CHEW PO ×3 (13:35→19:40)
--- NOTE | 2023-04-19 15:18 | PC.NURSE ---
This patient, Gabrielle Whitney, was received from PACU on 04/19/23 at 1315. Patient/family oriented to unit policies and routines
[2023-04-19] MEDS: DOCUSATE SODIUM 100 MG CAPSULE PO (18:07)
[2023-04-19] MEDS: METOPROLOL SUCCINATE EXT REL 100 MG TABCR PO (18:07)
[2023-04-19] MEDS: HYDROcodone/acetaminophen (*CRX) 5-325 MG TABLET 1 TAB PO (18:08)
[2023-04-19] MEDS: PANTOPRAZOLE SOD SESQUIHYDRATE 20 MG TAB PO (18:09)
[2023-04-19] MEDS: LOSARTAN POTASSIUM 50 MG TABLET PO (18:09)
[2023-04-19] MEDS: HYDROcodone/acetaminophen (*CRX) 10-325 MG TABLET 1 TAB PO (21:00)
[2023-04-19] MEDS: ENOXAPARIN 80 MG/0.8 ML SYRINGE SUB-Q (21:00)
[2023-04-20] VITALS: BP 107/44; PULSE 64; RESP 16; TEMP 36.8; O2SAT 97
[2023-04-20] MEDS: HYDROcodone/acetaminophen (*CRX) 10-325 MG TABLET 1 TAB PO ×3 (03:25→06:44)
[2023-04-20] MEDS: SIMETHICONE 80 MG TAB.CHEW PO ×2 (03:25→06:46)
[2023-04-20 03:30] VITALS: BP 140/67; PULSE 62; RESP 18; TEMP 36.6; O2SAT 98
[2023-04-20 04:47] LABS: Basophils Absolute Auto 0.1 K/mm3 (0.0-0.1); Basophils Percent Auto 0.4 % (0.2-1.2); Hematocrit 31.4 % (37.0-47.0); Hemoglobin 9.1 g/dL (12.0-15.0); Immature Granulocyte Absolute 0.06 K/mm3 (0.00-0.031); Immature Granulocyte Percent A 0.5 % (0-0.5); Lymphocytes Absolute Auto 1.61 K/mm3 (0.9-3.2); Lymphocytes Percent Auto 13.5 % (18.3-44.2); Mean Corpuscular Hemoglobin 26.5 pg (26-34); Mean Corpuscular Volume 91.5 fl (80-100); Mean Platelet Volume 10.7 fl (7.4-10.4); Monocytes Percent Auto 8.7 % (2.6-8.5); Neutrophils Absolute Auto 9.2 K/mm3 (1.3-6.7); Neutrophils Percent Auto 76.9 % (45.5-73.1); Platelet Count Result 393 k/mm3 (150-375); Red Blood Count 3.43 M/mm3 (4.2-5.4); Red Cell Distribution Width 21.2 % (11.5-14.5); White Blood Count 11.9 K/mm3 (4.5-10.0)
[2023-04-20 05:30] LABS: Platelet Estimate Adequate (Adequate)
[2023-04-20 05:31] LABS: Anisocytosis 1+ (NORMAL); Schistocytes None Seen (NORMAL)
[2023-04-20 08:50] VITALS: BP 136/62; PULSE 86; RESP 18; TEMP 36.8; O2SAT 99
[2023-04-20] MEDS: APIXABAN 5 MG TABLET PO (09:09)
--- NOTE | 2023-04-20 09:22 | PM.GYNPNOP ---
PLANNING SPECIALIST - A/P Assessment and plan (1) Enlarged uterus: Code(s): N85.2 - Hypertrophy of uterus Status: Acute Assessment and Plan: A: POD#1, doing well. P: Home to f/u 2 weeks. (2) Excessive bleeding: Code(s): R58 - Hemorrhage, not elsewhere classified Status: Acute (3) Pelvic pain: Code(s): R10.2 - Pelvic and perineal pain Status: Acute Postoperative Procedures: Procedures Operation Date: 04/19/23 11:30 Actual Procedure Side Surgeon p Robotic Assisted Total Vaginal Hysterectomy with Bilateral Salpingo-oophorectomy Bilateral Louis Rg MD Time Spent With Patient Time with patient: less than 15 minutes PLANNING SPECIALIST- PN:Subj Post-Op Subjective Date/time seen: 04/20/23 09:23 Interval history: Pain OK. Tolerating diet. Voiding. Would like to go home. Exam Narrative: AVSS I/O OK ABD soft, nontender. Incisions c/d/i. EXT nontender PLANNING SPECIALIST - PN: Obj Data Vital Signs Vital Signs: Vital Signs - 24 hr 04/19/23 11:21 04/19/23 11:35 04/19/23 11:45 Temperature 36.2 C L Pulse Rate 76 83 78 Respiratory Rate 13 20 17 Blood Pressure 147/75 H 174/91 H 168/82 H Pulse Oximetry 100 100 100 Oxygen Delivery Simple Face Mask Simple Face Mask Simple Face Mask Oxygen Flow Rate 6 6 6 04/19/23 12:00 04/19/23 12:15 04/19/23 12:30 Temperature Pulse Rate 75 69 65 Respiratory Rate 12 12 14 Blood Pressure 169/84 H 156/84 H 160/82 H Pulse Oximetry 98 99 100 Oxygen Delivery Room Air Room Air Room Air Oxygen Flow Rate 04/19/23 12:45 04/19/23 13:49 04/19/23 13:15 Temperature 36.6 C 37.1 C Pulse Rate 72 72 73 Respiratory Rate 13 18 16 Blood Pressure 161/80 H 166/75 H 155/75 H Pulse Oximetry 99 100 100 Oxygen Delivery Room Air Oxygen Flow Rate 04/19/23 15:45 04/19/23 18:07 04/19/23 19:30 Temperature 37.1 C 36.9 C Pulse Rate 73 85 80 Respiratory Rate 16 18 Blood Pressure 155/75 H 148/88 H Pulse Oximetry 98 Oxygen Delivery Oxygen Flow Rate 04/20/23 00:00 04/20/23 03:30 Temperature 36.8 C 36.6 C Pulse Rate 64 62 Respiratory Rate 16 18 Blood Pressure 107/44 L 140/67 Pulse Oximetry 97 98 Oxygen Delivery Oxygen Flow Rate Intake/Output Intake/Output: Intake & Output 04/17/23 04/18/23 04/19/23 04/20/23 23:59 23:59 23:59 23:59 Intake Total 840 Output Total 820 1700 Balance 20 -1700 Meds/Results Medications: Active Medications Generic Name Dose Route Start Last Admin Trade Name Freq PRN Reason Stop Dose Admin Hydrocodone Bitart/Acetaminophen 1 tab 04/19/23 12:56 04/19/23 18:08 Hydrocodone/Acetaminophen (*Crx) 5-325 Mg Tablet PO 1 tab Q3H PRN Administration Pain Rated 5 or Less Hydrocodone Bitart/Acetaminophen 1 tab 04/19/23 12:56 04/20/23 06:44 Hydrocodone/Acetaminophen (*Crx) 10-325 Mg Tablet PO 1 tab Q3H PRN Administration Pain Rated 6 or Greater Apixaban 5 mg 04/20/23 09:00 04/20/23 09:09 Apixaban 5 Mg Tablet PO 5 mg Q12HR DEQUAN Administration Docusate Sodium 100 mg 04/19/23 17:00 04/20/23 09:10 Docusate Sodium 100 Mg Capsule PO Not Given BID DEQUAN Dextrose/Lactated Ringer's 1,000 mls @ 125 mls/hr 04/19/23 12:56 04/20/23 00:28 Dextrose 5%/Lactated Ringers IV CONT Not Given .Q8H DEQUAN Ketorolac Tromethamine 30 mg 04/19/23 12:56 04/19/23 13:34 Ketorolac 30 Mg/Ml Vial (*Bkc) IV PUSH 04/24/23 12:55 30 mg Q6H PRN Administration Pain Rated 4-6 Losartan Potassium 50 mg 04/19/23 21:00 04/19/23 18:09 Losartan Potassium 50 Mg Tablet PO 50 mg QHS DEQUAN Administration Metoprolol Succinate 100 mg 04/19/23 21:00 04/19/23 18:07 Metoprolol Succinate Ext Rel 100 Mg Tabcr PO 100 mg QHS DEQUAN Administration Naloxone HCl 0.1 mg 04/19/23 12:56 Naloxone Hcl 0.4 Mg/Ml Vial IV PUSH Q2M PRN Respiratory rate less than 10 Ondansetron HCl 4 mg 04/19/23 12:56 Ondansetron Inj 4 Mg/2 Ml Vial
--- NOTE | 2023-04-20 09:47 | WPDANESPN ---
Anes - Prog Note Post-Op Date/Time: 04/20/23 09:47 Cardiovascular status: normal Respiratory status: normal Airway patency: baseline Mental status: baseline Post-Op hydration status: normal Vital Signs: Last Vital Signs Temp 36.8 C 04/20/23 08:50 Pulse 86 04/20/23 08:50 Resp 18 04/20/23 08:50 BP 136/62 04/20/23 08:50 Pulse Ox 99 04/20/23 08:50 O2 Del Method Room Air 04/19/23 12:45 O2 Flow Rate 6 04/19/23 11:45 Pain Score (VAS): 0 I/O: Intake & Output 04/19/23 04/20/23 04/20/23 23:59 07:59 15:59 Intake Total 1000 Output Total 1700 100 Balance -1700 900 Laboratory Tests 04/20/23 03:33 04/20/23 03:33 WBC 11.9 H RBC 3.43 L Hgb 9.1 L Hct 31.4 L MCV 91.5 MCH 26.5 MCHC 29.0 L RDW 21.2 H Plt Count 393 H MPV 10.7 H Immature Gran % (Auto) 0.5 Neut % (Auto) 76.9 H Lymph % (Auto) 13.5 L [place] % (Auto) 8.7 H Eos % (Auto) 0.0 Baso % (Auto) 0.4 Lymph # (Auto) 1.61 [place] # (Auto) 1.0 H Eos # (Auto) 0.0 Baso # (Auto) 0.1 Abs Immat Gran (auto) 0.06 H Absolute Neuts (auto) 9.2 H Absolute Nucleated RBC 0.0 Nucleated RBC % 0.0 Platelet Estimate Adequate Anisocytosis 1+ Schistocytes None seen Post-procedural complaints: none Patient Feedback: Patient satisfied with anesthetic care.
== END 2023-04-20 09:56 | disposition home or self-care (01) ==
LOC: ANHSURGERY 08:08 → ANHOB2 13:11
PROVIDERS: Anesthesiology; PCP Family Medicine; Visit Provider Obstetrics & Gynecology
PROC: (CPT 58554; principal; 2023-04-19 11:30)
DX: D25.1 Intramural leiomyoma of uterus (principal); D25.2 Subserosal leiomyoma of uterus; D25.0 Submucous leiomyoma of uterus; D27.9 Benign neoplasm of unspecified ovary; N83.209 Unspecified ovarian cyst, unspecified side; N93.9 Abnormal uterine and vaginal bleeding, unspecified; R10.2 Pelvic and perineal pain; I10 Essential (primary) hypertension; D50.9 Iron deficiency anemia, unspecified; K21.9 Gastro-esophageal reflux disease without esophagitis; Z86.718 Personal history of other venous thrombosis and embolism; Z86.711 Personal history of pulmonary embolism; Z79.01 Long term (current) use of anticoagulants
CPT/HCPCS: 58554; S2900; 36415; 85025; 85027; 85610; 85730; 86850; 86900; 86901; 88307; 93005; 99199; A9270; J0330; J0690; J1100; J1650; J1885; J2250; J2405; J2704; J3010; J7030; J7120; J7121

== ENCOUNTER 2023-05-16 15:01 | Outpatient (CLI) | payer OTHER, SELFPAY ==
--- NOTE | ~2023-05-16 | US_ITS ---
EXAMINATION: US venous doppler [facility] DATE: 05/16/2023 15:42 INDICATION: Acute pulmonary embolism TECHNIQUE: Villafuerte scale images without and with compression and Doppler images of the left lower extrem ity veins were obtained. COMPARISON: 03/08/2023 FINDINGS: The left common femoral vein and profunda femoral vein are patent. There is thrombosis of t he femoral vein, popliteal vein, posterior tibial veins, and the peroneal vein. IMPRESSION: 1. Thrombosis of the femoral vein, popliteal vein, posterior tibial veins, and peroneal vein. Reviewed, dictated and finalized at location F. LOCATOR
== END 2023-05-16 15:02 | disposition home or self-care (01) ==
PROVIDERS: PCP Family Medicine; Visit Provider Nurse Practitioner Family
DX: I26.99 Other pulmonary embolism without acute cor pulmonale (principal); I82.412 Acute embolism and thrombosis of left femoral vein; I82.432 Acute embolism and thrombosis of left popliteal vein; I82.442 Acute embolism and thrombosis of left tibial vein; I82.452 Acute embolism and thrombosis of left peroneal vein
CPT/HCPCS: 93971

== ENCOUNTER 2023-05-25 14:51 | Emergency (ER) | payer OTHER, SELFPAY ==
--- NOTE | ~2023-05-25 | US_ITS ---
EXAMINATION: US pelvic complete w TV DATE: 05/25/2023 17:47 INDICATION: Vaginal bleeding post hysterectomy. TECHNIQUE: Multiple transabdominal and transvaginal sonographic images of the pelvis were obtained. COMPARISON: CT abdomen and pelvis 03/21/23 FINDINGS: TRANSABDOMINAL ULTRASOUND: The uterus is absent. There is no free fluid in the pelvis. TRANSVAGINAL ULTRASOUND: The ovaries are not visualized. There is no abnormal mass or hematoma. IMPRESSION: 1. No abnormality status post hysterectomy. Reviewed, dictated and finalized at location E. PAN OPERATOR
[2023-05-25 14:51] VITALS: BP 182/98; PULSE 92; RESP 20; TEMP 36.3; O2SAT 100
--- NOTE | 2023-05-25 15:41 | ED.FEMALEGU ---
HPI - Female Genitourinary General Chief complaint: Vaginal Bleeding Stated complaint: vaginal bleeding Time Seen by Provider: 05/25/23 15:22 Source: patient Mode of arrival: ambulatory Limitations: no limitations History of Present Illness HPI Narrative: This is a 53-year-old female who presents to the ED with chief complaint vaginal bleeding beginning around 4:00 a.m. this morning. Patient is 6 weeks s/p LAVH with Dr. Ricky Rg. Reports today while on the way she had a little bit of pelvic cramping but otherwise she has been pain free. Reports the bleeding had been relatively slow earlier today but seems to be increasing in rate this afternoon. She is saturating no more than 1 pad per hour. She was started on Lovenox 1 week ago. Previous DVT diagnosed in February, seen again in April so was switched from Eliquis to Lovenox. Denies syncope, lightheadedness, problems with urination or N/V. Related Data Home Medications Medication Instructions Recorded Confirmed losartan 50 mg tablet 50 mg PO HS 03/08/23 04/19/23 metoprolol succinate 100 mg 100 mg PO HS 03/08/23 04/19/23 tablet,extended release 24 hr pantoprazole 40 mg tablet,delayed 20 mg PO QHS 03/08/23 04/19/23 release B Complex-Vitamin B12 2 tab-cap PO DAILY 04/08/23 04/19/23 ascorbic acid (vitamin C) 1 cap PO DAILY 04/08/23 04/19/23 magnesium citrate 1 cap PO DAILY 04/08/23 04/19/23 enoxaparin 80 mg/0.8 mL 80 mg subcut Q12H 04/19/23 04/19/23 subcutaneous syringe Allergies Allergy/AdvReac Type Severity Reaction Status Date / Time amlodipine AdvReac Intermediate Swelling Verified 04/10/23 14:36 Lactobacillus rhamnosus GG AdvReac Intermediate Nausea and Verified 04/10/23 14:36 [From [facility] Vomiting Probiotics] allopurinol AdvReac Mild Other Verified 04/10/23 14:36 lisinopril AdvReac Mild Cough Verified 04/10/23 14:36 Review of Systems Review of Systems: All systems as dictated in [facility] Past Medical History Medical History Anxiety BMI 26.0-26.9,adult BMI 27.0-27.9,adult GERD (gastroesophageal reflux disease) Gout Hypertension Iron deficiency anemia Post endometrial ablation syndrome Right elbow pain Thrombophlebitis Uterine fibroid Surgical History Surgical History History of Hx of spinal surgery Family History Family History Father Heart disease Acute myocardial infarction Mother Sepsis Arthritis Hypertension Sibling Acute myocardial infarction COVID-19 Sibling Hypertension Cerebrovascular accident COVID-19 Social History Social History Smoking status: Never smoker Second hand tobacco smoke exposure: Yes Alcohol intake: never Alcohol use details: RARE Substance use: never Substance use type: does not use Do You Feel Safe in your Home?: Yes Lack of Transportation: No Lack of Food: Never True Current Housing: I Have Housing Concerned About Future Housing: No Difficulty Paying Gas/Electric Bills: No Difficulty Paying for Meds: No Currently Unemployed: No Education: Decline to Answer Difficulty w/ Childcare or Family Care: No Living arrangements: with family Occupation/Education: occupation 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 HEAD: Normocephalic, atraumatic. EYES: PERRLA and EOMI. ENT: Nares clear, no rhinorrhea or epistaxis. Mucous membranes moist. Oropharynx without tonsillar hyp
[2023-05-25 16:02] LABS: Basophils Absolute Auto 0.1 K/mm3 (0.0-0.1); Basophils Percent Auto 0.9 % (0.2-1.2); Eosinophils Absolute Auto 0.1 K/mm3 (0-0.3); Eosinophils Percent Auto 0.9 % (0-4.4); Hematocrit 40.8 % (37.0-47.0); Hemoglobin 12.5 g/dL (12.0-15.0); Immature Granulocyte Absolute 0.02 K/mm3 (0.00-0.031); Immature Granulocyte Percent A 0.3 % (0-0.5); Lymphocytes Absolute Auto 1.45 K/mm3 (0.9-3.2); Lymphocytes Percent Auto 22.4 % (18.3-44.2); Mean Corpuscular HGB Conc 30.6 g/dl (32-36); Mean Corpuscular Hemoglobin 26.7 pg (26-34); Mean Corpuscular Volume 87.2 fl (80-100); Mean Platelet Volume 10.8 fl (7.4-10.4); Monocytes Absolute Auto 0.6 K/mm3 (0.1-0.6); Monocytes Percent Auto 9.1 % (2.6-8.5); Neutrophils Absolute Auto 4.3 K/mm3 (1.3-6.7); Neutrophils Percent Auto 66.4 % (45.5-73.1); Platelet Count Result 225 k/mm3 (150-375); Red Blood Count 4.68 M/mm3 (4.2-5.4); Red Cell Distribution Width 16.9 % (11.5-14.5); White Blood Count 6.5 K/mm3 (4.5-10.0)
[2023-05-25 16:11] LABS: Alanine Aminotransferase 62 U/L (6-35); Albumin Level 4.4 g/dL (3.5-5.1); Alkaline Phosphatase 168 U/L (38-126); Anion Gap 5 mmol/L (8-16); Aspartate Amino Transferase 43 U/L (14-36); Bilirubin,Total 0.5 mg/dL (0.2-1.3); Blood Urea Nitrogen 15 mg/dL (7-17); Calcium 9.7 mg/dL (8.4-10.2); Carbon Dioxide 26 mmol/L (22-30); Chloride 106 mmol/L (98-107); Estimated CRCL calculation 77 ml/min; Estimated Glomerular Filt Rate > 60; Glucose 90 mg/dL (65-110); Potassium 3.6 mmol/L (3.4-5.0); Sodium 137 mmol/L (137-145)
[2023-05-25 16:13] LABS: INR 0.9; Prothrombin Time 12.5 Seconds (11.1-14.7)
[2023-05-25 16:14] LABS: Bacteria Urine None Seen /hpf; Non Pathogenic Casts 0-2; RBC Urine >100 /hpf (0-2); Squamous Epithelial Cell Urine None seen /hpf (Few); WBC Urine 0-5 /hpf
[2023-05-25 16:33] LABS: Appearance Urine Clear (Clear); Bilirubin Urine Negative (Negative); Blood Urine 3+ (Negative); Glucose Urine UA Negative (Negative); Ketones Urine 1+ mg/dL (Negative); Leukocyte Esterase Ur Trace LEU/UL (Negative); Nitrate Urine Negative (Negative); Protein Urine Trace mg/dL (Negative); Specific Grav Ur 1.007 (1.001-1.035); Urobilinogen Urine 0.2 mg/dL (<2.0); pH Urine 5.5 (5.0-9.0)
[2023-05-25 16:34] LABS: Color Urine Light Red (Yellow)
[2023-05-25 16:37] LABS: Add Urine Microscopic? YES
[2023-05-25 17:30] VITALS: BP 141/87; PULSE 89; RESP 17; O2SAT 97
[2023-05-25 18:23] VITALS: BP 141/83; PULSE 92; RESP 17; TEMP 36.9; O2SAT 100
== END 2023-05-25 18:25 | disposition home or self-care (01) ==
PROVIDERS: Emergency Provider Physician Assistant; PCP Family Medicine
DX: N93.9 Abnormal uterine and vaginal bleeding, unspecified (principal); R10.2 Pelvic and perineal pain; I10 Essential (primary) hypertension; Z79.899 Other long term (current) drug therapy
CPT/HCPCS: 36415; 76830; 76856; 80053; 81001; 85025; 85610; 85730; 99284

== ENCOUNTER 2023-05-26 03:42 | Emergency (ER) | payer OTHER, SELFPAY ==
[2023-05-26 03:54] VITALS: BP 142/90; PULSE 91; RESP 14; TEMP 36.6; O2SAT 100
[2023-05-26 04:54] VITALS: BP 125/93; PULSE 92; RESP 15; O2SAT 100
[2023-05-26 05:01] LABS: Hematocrit 36.4 % (37.0-47.0)
--- NOTE | 2023-05-26 05:14 | ED.GENADULT ---
HPI - General Adult General Chief complaint: Vaginal Bleeding <Ludwin Suggs MD - Last Filed: 05/26/23 07:02> Stated complaint: nasuea, vag bleed post op, seen earlier <Ludwin Suggs MD - Last Filed: 05/26/23 07:02> Time Seen by Provider: 05/26/23 04:11 <Ludwin Suggs MD - Last Filed: 05/26/23 07:02> History of Present Illness HPI narrative: This is a 53-year-old female presenting with vaginal bleeding. She is 1 month out from a total hysterectomy performed by Dr. Mercy Rg. Her course was complicated by a DVT PE and has been on Lovenox. She was seen in our emergency department earlier today and discharged with outpatient follow-up after Student Success Coach consultation. However she has continued to have passage of vaginal bleeding and has now developed lightheadedness dizziness and fatigue. <Ludwin Suggs MD - Last Filed: 05/26/23 07:02> Related Data Home medications: Home Medications Medication Instructions Recorded Confirmed losartan 50 mg tablet 50 mg PO HS 03/08/23 04/19/23 metoprolol succinate 100 mg 100 mg PO HS 03/08/23 04/19/23 tablet,extended release 24 hr pantoprazole 40 mg tablet,delayed 20 mg PO QHS 03/08/23 04/19/23 release B Complex-Vitamin B12 2 tab-cap PO DAILY 04/08/23 04/19/23 ascorbic acid (vitamin C) 1 cap PO DAILY 04/08/23 04/19/23 magnesium citrate 1 cap PO DAILY 04/08/23 04/19/23 enoxaparin 80 mg/0.8 mL 80 mg subcut Q12H 04/19/23 04/19/23 subcutaneous syringe <Ludwin Suggs MD - Last Filed: 05/26/23 07:02> Allergies/adverse reactions: Allergies Allergy/AdvReac Type Severity Reaction Status Date / Time amlodipine AdvReac Intermediate Swelling Verified 04/10/23 14:36 Lactobacillus rhamnosus GG AdvReac Intermediate Nausea and Verified 04/10/23 14:36 [From [employer] [facility] Vomiting Probiotics] allopurinol AdvReac Mild Other Verified 04/10/23 14:36 lisinopril AdvReac Mild Cough Verified 04/10/23 14:36 <Ludwin Suggs MD - Last Filed: 05/26/23 07:02> PMFSH Past Medical History Medical History: Medical History Anxiety BMI 26.0-26.9,adult BMI 27.0-27.9,adult GERD (gastroesophageal reflux disease) Gout Hypertension Iron deficiency anemia Post endometrial ablation syndrome Right elbow pain Thrombophlebitis Uterine fibroid <Ludwin Suggs MD - Last Filed: 05/26/23 07:02> Surgical History Surgical History: Surgical History History of Hx of spinal surgery <Ludwin Suggs MD - Last Filed: 05/26/23 07:02> Family History Family History: Family History Father Heart disease Acute myocardial infarction Mother Sepsis Arthritis Hypertension Sibling Acute myocardial infarction COVID-19 Sibling Hypertension Cerebrovascular accident COVID-19 <Ludwin Suggs MD - Last Filed: 05/26/23 07:02> Social History Social History: Social History Smoking status: Never smoker Second hand tobacco smoke exposure: Yes Alcohol intake: never Alcohol use details: RARE Substance use: never Substance use type: does not use Do You Feel Safe in your Home?: Yes Lack of Transportation: No Lack of Food: Never True Current Housing: I Have Housing Concerned About Future Housing: No Difficulty Paying Gas/Electric Bills: No Difficulty Paying for Meds: No Currently Unemployed: No Education: Decline to Answer Difficulty w/ Childcare or Family Care: No Living arrangements: with family Occupation/Education: occupation 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
[2023-05-26 05:31] VITALS: BP 103/68; PULSE 92; RESP 18; O2SAT 100
--- NOTE | 2023-05-26 05:45 | P.PNOB_ITS ---
SENIOR MAINTENANCE MACHINIST - A/P Postoperative Procedures: Status post Monsel's to the vaginal cuff-plan to observe for 2 hours and if no significant bleeding will discharge home. If active bleeding continues will plan to proceed with admission for diagnostic laparoscopy. Patient formed and agrees to plan. Time Spent With Patient Time: Total time spent is greater than 50% in coordination of care (as documented) at patient's floor/unit and/or counseling patient: Time with patient: 15 - 25 minutes SENIOR MAINTENANCE MACHINIST- PN:Subj Post-Op Subjective Date/time seen: 05/26/23 05:45 Interval history: The patient is seen significant pain the emergency room by the ER physician for vaginal bleeding status post robotic hysterectomy. Hemoglobin has dropped. Ultrasound on prior admission to the ER was normal with no evidence of pelvic hematoma. Patient has been having bright red bleeding with clots that began on Saturday. She did report that on she pushed several shopping carts. Patient is on Lovenox for 1 week after increased leg pain from a known DVT. She had previously been on Eliquis. Exam : External Female Exam: normal external appearance Speculum Exam - Vagi na: normal appearance of the vagina, vaginal bleeding (Minimal old blood in the vaginal vault removed with 1 rectal swab) and other (Vaginal cuff sutures intact.No dehiscence. Monsel's paste applied to cuff.) SENIOR MAINTENANCE MACHINIST - PN: Obj Data Vital Signs Vital Signs: Vital Signs - 24 hr 05/26/23 03:54 05/26/23 04:54 Temperature 98 F Pulse Rate 91 92 Respiratory Rate 14 15 Blood Pressure 142/90 H 125/93 H Pulse Oximetry 100 100 Oxygen Delivery Room Air Labs 05/26/23 04:50 Labs: Laboratory Results - last 24 hr 05/26/23 04:50 Hgb 11.0 L Hct 36.4 L
[2023-05-26 08:35] VITALS: BP 106/73; PULSE 80; RESP 22; TEMP 36.6; O2SAT 98
== END 2023-05-26 09:30 | disposition home or self-care (01) ==
PROVIDERS: Emergency Medicine; Emergency Provider Emergency Medicine; PCP Family Medicine
DX: N99.820 Postprocedural hemorrhage of a genitourinary system organ or structure following a genitourinary system procedure (principal); I10 Essential (primary) hypertension; K21.9 Gastro-esophageal reflux disease without esophagitis; M10.9 Gout, unspecified; D50.9 Iron deficiency anemia, unspecified; Z86.718 Personal history of other venous thrombosis and embolism; Z90.710 Acquired absence of both cervix and uterus; Z77.22 Contact with and (suspected) exposure to environmental tobacco smoke (acute) (chronic); Z86.711 Personal history of pulmonary embolism; Z79.02 Long term (current) use of antithrombotics/antiplatelets
CPT/HCPCS: 36415; 85014; 85018; 99283

== ENCOUNTER 2023-05-30 14:43 | Outpatient (CLI) | payer OTHER, SELFPAY ==
[2023-05-30 15:05] LABS: Basophils Absolute Auto 0.1 K/mm3 (0.0-0.1); Basophils Percent Auto 0.7 % (0.2-1.2); Eosinophils Absolute Auto 0.1 K/mm3 (0-0.3); Hematocrit 31.1 % (37.0-47.0); Hemoglobin 9.6 g/dL (12.0-15.0); Immature Granulocyte Absolute 0.03 K/mm3 (0.00-0.031); Immature Granulocyte Percent A 0.4 % (0-0.5); Lymphocytes Absolute Auto 1.49 K/mm3 (0.9-3.2); Lymphocytes Percent Auto 20.5 % (18.3-44.2); Mean Corpuscular HGB Conc 30.9 g/dl (32-36); Mean Corpuscular Hemoglobin 27.7 pg (26-34); Mean Corpuscular Volume 89.6 fl (80-100); Mean Platelet Volume 10.4 fl (7.4-10.4); Monocytes Absolute Auto 0.6 K/mm3 (0.1-0.6); Monocytes Percent Auto 8.1 % (2.6-8.5); Neutrophils Percent Auto 69.3 % (45.5-73.1); Platelet Count Result 250 k/mm3 (150-375); Red Blood Count 3.47 M/mm3 (4.2-5.4); Red Cell Distribution Width 17.2 % (11.5-14.5); White Blood Count 7.3 K/mm3 (4.5-10.0)
[2023-05-30 16:37] LABS: Iron 43 ug/dL (37-170)
[2023-05-30 16:53] LABS: Percent Iron Saturation 12 % (20-50)
[2023-05-30 17:44] LABS: Folic Acid 3.6 ng/mL (2.76->20)
== END 2023-05-30 14:44 | disposition home or self-care (01) ==
LOC: ANHLAB 14:45
PROVIDERS: PCP Family Medicine; Visit Provider Internal Medicine Hematology & Oncology
DX: D64.9 Anemia, unspecified (principal)
CPT/HCPCS: 36415; 82607; 82728; 82746; 83540; 83550; 85025

== ENCOUNTER 2023-06-06 15:09 | Outpatient (CLI) | payer OTHER, SELFPAY ==
[2023-06-06 15:32] LABS: Basophils Absolute Auto 0.1 K/mm3 (0.0-0.1); Basophils Percent Auto 0.6 % (0.2-1.2); Eosinophils Absolute Auto 0.1 K/mm3 (0-0.3); Eosinophils Percent Auto 1.3 % (0-4.4); Hematocrit 34.8 % (37.0-47.0); Hemoglobin 10.6 g/dL (12.0-15.0); Immature Granulocyte Absolute 0.04 K/mm3 (0.00-0.031); Immature Granulocyte Percent A 0.5 % (0-0.5); Lymphocytes Absolute Auto 1.97 K/mm3 (0.9-3.2); Lymphocytes Percent Auto 23.4 % (18.3-44.2); Mean Corpuscular HGB Conc 30.5 g/dl (32-36); Mean Corpuscular Hemoglobin 27.3 pg (26-34); Mean Corpuscular Volume 89.7 fl (80-100); Mean Platelet Volume 9.5 fl (7.4-10.4); Monocytes Absolute Auto 0.7 K/mm3 (0.1-0.6); Monocytes Percent Auto 8.6 % (2.6-8.5); Neutrophils Absolute Auto 5.5 K/mm3 (1.3-6.7); Neutrophils Percent Auto 65.6 % (45.5-73.1); Platelet Count Result 351 k/mm3 (150-375); Red Blood Count 3.88 M/mm3 (4.2-5.4); Red Cell Distribution Width 16.9 % (11.5-14.5); White Blood Count 8.4 K/mm3 (4.5-10.0)
== END 2023-06-06 15:10 | disposition home or self-care (01) ==
PROVIDERS: PCP Family Medicine; Visit Provider Internal Medicine Hematology & Oncology
DX: D64.9 Anemia, unspecified (principal)
CPT/HCPCS: 36415; 85025

== ENCOUNTER 2023-06-27 14:58 | Outpatient (CLI) | payer OTHER, SELFPAY ==
[2023-06-27 15:09] LABS: Hematocrit 41.4 % (37.0-47.0); Hemoglobin 12.6 g/dL (12.0-15.0); Mean Corpuscular HGB Conc 30.4 g/dl (32-36); Mean Corpuscular Hemoglobin 27.8 pg (26-34); Mean Corpuscular Volume 91.4 fl (80-100); Mean Platelet Volume 10.7 fl (7.4-10.4); Platelet Count Result 267 k/mm3 (150-375); Red Blood Count 4.53 M/mm3 (4.2-5.4); Red Cell Distribution Width 17.2 % (11.5-14.5); White Blood Count 8.3 K/mm3 (4.5-10.0)
[2023-06-27 19:39] LABS: Iron 141 ug/dL (37-170)
[2023-06-27 19:50] LABS: Percent Iron Saturation 45 % (20-50)
[2023-06-27 21:57] LABS: Folic Acid 4.1 ng/mL (2.76->20)
== END 2023-06-27 14:59 | disposition home or self-care (01) ==
PROVIDERS: PCP Family Medicine; Visit Provider Internal Medicine Hematology & Oncology
DX: D64.9 Anemia, unspecified (principal)
CPT/HCPCS: 36415; 82607; 82728; 82746; 83540; 83550; 85027

== ENCOUNTER 2023-06-28 09:36 | Outpatient (CLI) | payer OTHER, SELFPAY ==
--- NOTE | ~2023-06-28 | US_ITS ---
EXAMINATION: US venous doppler [facility] DATE: 06/28/2023 10:01 INDICATION: Left lower limb swelling. Recent acute pulmonary embolism and deep venous thrombosis. TECHNIQUE: Grayscale ultrasound images without and with compression and Doppler ultrasound images of the left lower extremity veins were obtained. COMPARISON: 05/16/2023 and 03/08/2023 FINDINGS: There is persistent noncompressible deep venous necrosis in the distal left superficial femoral vein and in the left popliteal vein. The visualized portions of left common femoral vein, profunda (deep) femoral vein, proximal to mid femoral vein, gastrocnemius vein and greater saphenous vein outflow rem ain patent. The left posterior tibial and peroneal veins at the calf are now patent. IMPRESSION: 1. Resolution of prior thrombosis of the left posterior tibial and peroneal veins with residual suba cute early chronic nonocclusive thrombus in the left popliteal and distal left superficial femoral ve ins. Reviewed, dictated and finalized at location B. IMPRESSION: 1. Resolution of prior thrombosis of the left posterior tibial and peroneal ve ins with residual subacute early chronic nonocclusive thrombus in the left popl iteal and distal left superficial femoral veins.
== END 2023-06-28 09:37 ==
PROVIDERS: PCP Family Medicine; Visit Provider Internal Medicine Hematology & Oncology
DX: M79.89 Other specified soft tissue disorders (principal)
CPT/HCPCS: 93971

== ENCOUNTER 2023-09-17 10:56 | Outpatient (CLI) | payer OTHER, SELFPAY ==
--- NOTE | ~2023-09-17 | US_ITS ---
LEFT LOWER EXTREMITY VENOUS ULTRASOUND Ordering provider: Toro Vargas MD History: . Chronic venous embolism . Comparison: June 28, 2023 FINDINGS: --COMMON FEMORAL: Patent and free of thrombus. Normal compressibility, phasic flow and augmentation. --PROXIMAL SUPERFICIAL FEMORAL: Patent and free of thrombus. Normal compressibility, phasic flow and augmentation. --DISTAL SUPERFICIAL FEMORAL: Thrombosed.--POPLITEAL: Thrombosed.. --POSTERIOR TIBIAL: Patent and free of thrombus. Normal compressibility, phasic flow and augmentation . IMPRESSION: Thrombosis in the distal femoral and in the popliteal veins. No change from previous examination. Reviewed, dictated and finalized at location A. IMPRESSION: Thrombosis in the distal femoral and in the popliteal veins. No change from pre vious examination.
== END 2023-09-17 10:57 ==
PROVIDERS: PCP Family Medicine; Visit Provider Internal Medicine Hematology & Oncology
DX: I82.512 Chronic embolism and thrombosis of left femoral vein (principal); I82.532 Chronic embolism and thrombosis of left popliteal vein
CPT/HCPCS: 93971

== ENCOUNTER 2023-09-23 12:15 | Outpatient (CLI) | payer OTHER, SELFPAY ==
[2023-09-23 12:33] LABS: Basophils Absolute Auto 0.1 K/mm3 (0.0-0.1); Basophils Percent Auto 0.9 % (0.2-1.2); Eosinophils Absolute Auto 0.1 K/mm3 (0-0.3); Eosinophils Percent Auto 1.5 % (0-4.4); Hematocrit 43.9 % (37.0-47.0); Hemoglobin 14.2 g/dL (12.0-15.0); Immature Granulocyte Absolute 0.01 K/mm3 (0.00-0.031); Immature Granulocyte Percent A 0.2 % (0-0.5); Lymphocytes Absolute Auto 1.47 K/mm3 (0.9-3.2); Lymphocytes Percent Auto 22.5 % (18.3-44.2); Mean Corpuscular HGB Conc 32.3 g/dl (32-36); Mean Corpuscular Hemoglobin 29.5 pg (26-34); Mean Corpuscular Volume 91.3 fl (80-100); Mean Platelet Volume 10.6 fl (7.4-10.4); Monocytes Absolute Auto 0.5 K/mm3 (0.1-0.6); Monocytes Percent Auto 8.1 % (2.6-8.5); Neutrophils Absolute Auto 4.4 K/mm3 (1.3-6.7); Neutrophils Percent Auto 66.8 % (45.5-73.1); Platelet Count Result 248 k/mm3 (150-375); Red Blood Count 4.81 M/mm3 (4.2-5.4); Red Cell Distribution Width 14.4 % (11.5-14.5); White Blood Count 6.5 K/mm3 (4.5-10.0)
[2023-09-23 16:40] LABS: Iron 94 ug/dL (37-170)
[2023-09-23 16:51] LABS: Anion Gap 8 mmol/L (4-12); Blood Urea Nitrogen 25 mg/dL (7-17); Calcium 9.5 mg/dL (8.4-10.2); Carbon Dioxide 26 mmol/L (22-30); Chloride 106 mmol/L (98-107); Estimated Glomerular Filt Rate 52; Glucose 84 mg/dL (65-110); Percent Iron Saturation 32 % (20-50); Potassium 4.2 mmol/L (3.4-5.0); Sodium 140 mmol/L (137-145)
[2023-09-23 17:53] LABS: Folic Acid 5.9 ng/mL (2.76->20)
== END 2023-09-23 12:16 | disposition home or self-care (01) ==
LOC: ANHLAB 12:16
PROVIDERS: PCP Family Medicine; Visit Provider Internal Medicine Hematology & Oncology
DX: D64.9 Anemia, unspecified (principal)
CPT/HCPCS: 36415; 80048; 82607; 82728; 82746; 83540; 83550; 85025

== ENCOUNTER 2023-12-27 10:06 | Outpatient (CLI) | payer OTHER, SELFPAY ==
--- NOTE | ~2023-12-27 | US_ITS ---
EXAMINATION: US venous doppler [facility] DATE: 12/27/2023 10:26 INDICATION: Chronic embolism and thrombosis of unspecified deep vein. TECHNIQUE: Grayscale ultrasound images without and with compression and Doppler ultrasound images of the left lower extremity veins were obtained. COMPARISON: Ultrasound 09/17/2023 FINDINGS: The visualized portions of left common femoral vein, profunda (deep) femoral vein, peroneal veins, po sterior tibial veins, and greater saphenous vein outflow are patent. There is nonocclusive thrombus i n the left femoral and popliteal veins. IMPRESSION: 1. Deep vein thrombosis involving left femoral and popliteal veins, stable from 09/17/2023. Reviewed, dictated and finalized at location A. IMPRESSION: 1. Deep vein thrombosis involving left femoral and popliteal veins, stable fro m 09/17/2023.
== END 2023-12-27 10:07 | disposition home or self-care (01) ==
LOC: GOSHIMG 10:07
PROVIDERS: PCP Family Medicine; Visit Provider Internal Medicine Hematology & Oncology
DX: I82.412 Acute embolism and thrombosis of left femoral vein (principal)
CPT/HCPCS: 93971

== ENCOUNTER 2024-01-09 15:06 | Outpatient (CLI) | payer OTHER, SELFPAY ==
[2024-01-09 15:22] LABS: Blood Urea Nitrogen 31 mg/dL (8-26); Carbon Dioxide 22 mmol/L (22-30); Chloride 105 mmol/L (98-109); Estimated Glomerular Filt Rate 36; Glucose 94 mg/dL (70-105); Sodium 138 mmol/L (138-146)
[2024-01-09 15:22] LABS: Basophils Absolute Auto 0.1 K/mm3 (0.0-0.1); Eosinophils Absolute Auto 0.1 K/mm3 (0-0.3); Eosinophils Percent Auto 1.4 % (0-4.4); Hematocrit 44.4 % (37.0-47.0); Hemoglobin 14.3 g/dL (12.0-15.0); Immature Granulocyte Absolute 0.02 K/mm3 (0.00-0.031); Immature Granulocyte Percent A 0.3 % (0-0.5); Lymphocytes Percent Auto 23.1 % (18.3-44.2); Mean Corpuscular HGB Conc 32.2 g/dl (32-36); Mean Corpuscular Hemoglobin 29.7 pg (26-34); Mean Corpuscular Volume 92.1 fl (80-100); Mean Platelet Volume 10.2 fl (7.4-10.4); Monocytes Absolute Auto 0.6 K/mm3 (0.1-0.6); Monocytes Percent Auto 7.9 % (2.6-8.5); Neutrophils Absolute Auto 4.6 K/mm3 (1.3-6.7); Neutrophils Percent Auto 66.3 % (45.5-73.1); Platelet Count Result 230 k/mm3 (150-375); Red Blood Count 4.82 M/mm3 (4.2-5.4); Red Cell Distribution Width 12.9 % (11.5-14.5); White Blood Count 6.9 K/mm3 (4.5-10.0)
== END 2024-01-09 15:07 | disposition home or self-care (01) ==
PROVIDERS: PCP Family Medicine; Visit Provider Internal Medicine Hematology & Oncology
DX: I82.5Z2 Chronic embolism and thrombosis of unspecified deep veins of left distal lower extremity (principal)
CPT/HCPCS: 36415; 80047; 85025

== ENCOUNTER 2024-04-01 09:56 | Outpatient (CLI) | payer OTHER, SELFPAY ==
--- NOTE | ~2024-04-01 | US_ITS ---
LEFT LOWER EXTREMITY VENOUS ULTRASOUND Ordering provider: Toro Vargas MD History: . LEFT LEG SWELLING . Comparison: December 27, 2023 FINDINGS: --COMMON FEMORAL: Patent and free of thrombus. Normal compressibility, phasic flow and augmentation. --PROXIMAL SUPERFICIAL FEMORAL: Thrombosed. --DISTAL SUPERFICIAL FEMORAL: Thrombosed--POPLITEAL: Thrombosed. --POSTERIOR TIBIAL: Patent and free of thrombus. Normal compressibility, phasic flow and augmentation . IMPRESSION: Thrombosed femoral and popliteal veins which is unchanged from previous examination suggestive of chr onic DVT. Reviewed, dictated and finalized at location A. [employer] IMPRESSION: Thrombosed femoral and popliteal veins which is unchanged from previous examina tion suggestive of chronic DVT.
== END 2024-04-01 09:57 | disposition home or self-care (01) ==
LOC: GOSHIMG 09:57
PROVIDERS: PCP Family Medicine; Visit Provider Internal Medicine Hematology & Oncology
DX: M79.89 Other specified soft tissue disorders (principal); I82.412 Acute embolism and thrombosis of left femoral vein; I82.432 Acute embolism and thrombosis of left popliteal vein
CPT/HCPCS: 93971

== ENCOUNTER 2024-04-09 11:26 | Outpatient (CLI) | payer OTHER, SELFPAY ==
[2024-04-09 11:39] LABS: Hematocrit 45.2 % (37.0-47.0); Hemoglobin 14.6 g/dL (12.0-15.0); Mean Corpuscular HGB Conc 32.3 g/dl (32-36); Mean Corpuscular Hemoglobin 29.6 pg (26-34); Mean Corpuscular Volume 91.5 fl (80-100); Mean Platelet Volume 10.1 fl (7.4-10.4); Platelet Count Result 229 k/mm3 (150-375); Red Blood Count 4.94 M/mm3 (4.2-5.4); White Blood Count 5.9 K/mm3 (4.5-10.0)
[2024-04-09 13:26] LABS: Folic Acid 5.8 ng/mL (2.76->20)
[2024-04-09 18:26] LABS: Iron 71 ug/dL (37-170)
[2024-04-09 18:38] LABS: Percent Iron Saturation 25 % (20-50)
--- OUTSIDE RECORDS SUMMARY | 2024-04-10 04:34 | XMS_ITS | Data Portability ---
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 Lab urinalys is, dipstick 2020 021 holly In-Office Order, Internal Use Only DO Not Attach Compendium DO Not Attach Compendium, Do Not Delete/merge, [id number] 18:02:59 H pylori urea breath test, co2 infrared 2020 021 [email or web address] [facility], [address], [place], [address], 14:46:59 bacteria l vaginosi s score, ANAMARIA+prob e, vaginal fluid (OBS) 2021 022 RAYMUNDO [facility], [address], [place], [address], 03:06:27 pregnanc y test, urine 2021 022 In-Office Order, Internal Use Only DO Not Attach Compendium DO Not Attach Compendium, Do Not Delete/merge, [id number] 2 15:07:21 Referral psychiat rist referral 2021 RAYMUNDO Britt (), [address] [place], [address], 19:31:42 counseli ng referral 2021 RAYMUNDO Balwinder (), [address] [place], [address], 19:31:33 Procedures None recorded . Surgeries None recorded . Imaging US, pelvis, transabd ominal + transvag inal 2018 TUMTUM [facility] (Radiology), [address] [facility] [place], [address], 0 11:16:35 MAMMO, screenin g, bilatera l 2021 TUMTUM [facility] (Radiology), [address] [facility] [place], [address], 2 10:02:36 US, pelvis, transabd ominal + transvag inal 2021 TUMTUM [place] [facility] (Radiology), 1 [facility] [place], [address], 2 17:23:28 Medication Orders norethin drone acetate 5 mg tablet 2018 [id number], [address], [place], [id number], 2 12:20:00 norethin drone acetate 5 mg tablet 2018 019 [facility], [address] [facility], [place], [address], 2 12:20:00 multivit franks tablet 2019 [facility] #[id number], [address], [place], [place], [id number], 10:37:47 Calcium with Vitamin D 600 mg-10 mcg (400 unit) tablet 2019 [facility] #50435, [address], [place], [place], [id number], 10:37:25 norethin drone acetate [address] [facility] #80723, [address], [place], [place], [id number], 12:20:00 omeprazo le 20 mg capsule, delayed release 2020 [facility] [place], [address], 12:20:14 Oriahnn 300-1-0. 5 mg(AM)/3 00 mg(PM) capsules [facility] [address] [place], [address], 12:25:12 Slynd 4 mg (28) tablet 2021 [facility], [address] [place], [address], 14:54:16 nystatin 100,000 unit/gra m topical cream [address] [facility], [facility], [place], [address], 15:28:45 fluconaz ole 150 mg tablet 2021 RAYMUNDO [facility], [address] [place], [address], 15:28:45 buspiron e 5 mg tablet 2021 RAYMUNDO [facility], [address] [place], [address], 15:28:47 Junel Fe 24 1 mg-20 mcg (24)/75 mg (4) tablet 2021 [facility], [address] [place], [address], 14:56:29 Patient TargetsNo targets recorded. Patient Instructions Encounter Date Encounter Id Patient Instructions Last Modified By Organization Details Last Modified Time 03/16/2019 [id number] uterine fibroids : care instructions mwasserman Not available 03/16/2019 16:30:29 08/05/2019 [id number] heavy menstrual periods: care instructions mwasserman Not available 08/05/2019 13:00:16 uterine fibroids : care instructions mwasserman Not available 08/05/2019 10:53:46 08/22/2020 [id number] learning about menopause mwasserman Not available 08/22/2020 18:02:59 gastroesophageal reflux disease (GERD): care instructions mwasserman Not available 08/22/2020 11:46:19 H. pylori bacter ial infection: care instructions mwasserman Not available 08/22/2020 11:46:19 uterine fibroids : care instructions mwasserman Not available 08/22/2020 18:02:59 06/28/2021 [id number] well visit, wome n 50 to 65: care instructions Not available 06/28/2021 12:49:19 learning about breast cancer screening Not available 06/28/2021 12:49:19 Reason for Referral Psychiatrist Referral for Ge neralized anxiety disorder Referring Physician: Ellyn Perkins, Clinical Research Manager, Encounter Date: 06/28/2021 Counseling Referral for Gene ralized anxiety disorder Referring Physician: Ellyn Perkins, Clinical Research Manager, Encounter Date: 06/28/2021 Results Created Date Observation Date Name Description Value Unit Range Abnormal Flag Note LastModifiedBy Organization Detail LastModifiedTime 08/23/19 21 08/22/2020 urina lysis , dipst ick Leukocytes Negati ve Not Available In-Office Order Internal Use Only DO Not Attach Compendium DO Not Attach Compendium, Do Not Delete/merge, [id number] 08/22/2020 10:49:56 08/23/19 21 08/22/2020 urina lysis , dipst ick Nitrite negati ve Not Available In-Office Order Internal Use Only DO Not Attach Compendium DO Not Attach Compendium, Do Not Delete/merge, 08/22/2020 10:49:56 08/23/19 21 08/22/2020 urina lysis , dipst ick Urobilinogen .2 Not Available In-Of fice Order Internal Use Only DO Not Attach Compendium DO Not Attach Compendium, Do Not Delete/merge, 08/22/2020 10:49:56 08/23/19 21 08/22/2020 urina lysis , dipst ick Protein Negati ve Not Available In-Office Order Internal Use Only DO Not Attach Compendium DO Not Attach Compendium, Do Not Delete/merge, 08/22/2020 10:49:56 08/23/19 21 08/22/2020 urina lysis , dipst ick pH 6.0 Not Available In-Office Order Internal Use Only DO Not Attach Compendium DO Not Attach Compendium, Do Not Delete/merge, 08/22/2020 10:49:56 08/23/19 21 08/22/2020 urina lysis , dipst ick Blood Large Not Available In-Office Order Internal Use Only DO Not Attach Compendium DO Not Attach Compendium, Do Not Delete/merge, 08/22/2020 10:49:56 08/23/19 21 08/22/2020 urina lysis , dipst ick Specific [place] 1.025 Not Available In-Off ice Order Internal Use Only DO Not Attach Compendium DO Not Attach Compendium, Do Not Delete/merge, [id number] 08/22/2020 10:49:56 08/23/19 21 08/22/2020 urina lysis , dipst ick Ketone Negati ve Not Available In-Office Order Internal Use Only DO Not Attach Compendium DO Not Attach Compendium, Do Not Delete/merge, [id number] 08/22/2020 10:49:56 08/23/19 21 08/22/2020 urina lysis , dipst ick Bilirubin Negati ve Not Available In-Office Order Internal Use Only DO Not Attach Compendium DO Not Attach Compendium, Do Not Delete/merge, [id number] 08/22/2020 10:49:56 08/23/19 21 08/22/2020 urina lysis , dipst ick Glucose Negati ve Not Available In-Office Order Internal Use Only DO Not Attach Compendium DO Not Attach Compendium, Do Not Delete/merge, [id number] 08/22/2020 10:49:56 08/23/19 21 08/23/2020 H pylor i urea breat h test, co2 infra red H pylori breath test Negati ve negati ve Not Available [facility] ([facility]) [address] [place], [address], 08/23/2020 16:11:29 06/29/19 22 07/02/2021 NUSWA B VG+, HSV atopobium vaginae LOW - 0 score Not Available [facility] ([facility]) [address] [place], [address], 07/03/2021 03:06:27 06/29/19 22 07/02/2021 NUSWA B VG+, HSV bvab 2 LOW - 0 score Not Available [facility] ([facility]) [address] [place], [address], 07/03/2021 03:06:27 06/29/19 22 07/02/2021 NUSWA B VG+, HSV megasphaera 1 LOW - 0 score Calcu late total score by roney robles the 3 indiv idual bacte rial vagin osis (BV) marke r score s toget her. Total score is inter prete d as follo ws: Total score 0-1: Indic ates the absen ce of BV. Total score 2: Indet ermin ate for BV. Addit ional clini ramin data shoul d be evalu ated to estab evan a diagn osis. Total score 3-6: Indic ates the prese nce of BV. This test was devel oped and its perfo rmanc e selvin cteri stics deter mined by [facility]. It has not been clear ed or appro sharon by the Food and Drug Admin istra tion. Not Available [facility] ([facility]) [address] [place], [address], 07/03/2021 03:06:27 06/29/19 22 07/02/2021 NUA B VG+, HSV edward albicans, ANAMARIA NEGATI VE negati ve Not Available [facility] ([facility]) [address] [place], [address], 07/03/2021 03:06:27 06/29/19 22 07/02/2021 NUSWA B VG+, HSV edward glabrata, ANAMARIA NEGATI VE negati ve Not Available [facility] ([facility]) [address] [place], [address], 07/03/2021 03:06:27 06/29/19 22 07/02/2021 NUSWA B VG+, HSV trich vag by ANAMARIA NEGATI VE negati ve Not Available [facility] ([facility]) [address] [place], [address], 07/03/2021 03:06:27 06/29/19 22 07/02/2021 NUSWA B VG+, HSV chlamydia trachomatis, ANAMARIA NEGATI VE negati ve Not Available [facility] ([facility]) [address] [place], [address], 07/03/2021 03:06:27 06/29/19 22 07/02/2021 NUSWA B VG+, HSV neisseria gonorrhoeae, ANAMARIA NEGATI VE negati ve Not Available [facility] ([facility]) [address] [facility], [place], [address], 07/03/2021 03:06:27 06/29/19 22 07/03/2021 NUSWA B VG+, HSV hsv 1 ANAMARIA NEGATI VE negati ve Not Available [facility] ([facility]) [address] [facility], [place], [address], 07/03/2021 03:06:27 06/29/19 22 07/03/2021 NUA B VG+, HSV hsv 2 ANAMARIA NEGATI VE negati ve Not Available [facility] ([facility]) [address] [facility], [place], [address], 07/03/2021 03:06:27 12/23/19 22 12/22/2021 pregn ambika test, urine HCG negati ve Not Available In-Office Order Internal Use Only DO Not Attach Compendium DO Not Attach Compendium, Do Not Delete/merge, [id number] 12/22/2021 14:44:53 03/23/19 20 03/19/2019 US, pelvi s, trans abdom inal + trans vagin al No observ ation record ed. [facility] (Radiology) [address] [place] [address] [place], [address], 08/05/2019 10:50:56 06/09/19 21 06/07/2020 MAMMO , scree angelito, bilat eral No observ ation record ed. [address] [place], [address], 08/23/2020 09:55:02 08/29/19 22 08/24/2021 US, pelvi s, trans abdom inal + trans vagin al No observ ation record ed. [facility] (Radiology) [address] [place] [address] [place], [address], 12/26/2021 14:56:30 12/27/19 22 08/24/2021 MAMMO , elvin eaton, bilradha bellamyl No observ ation record ed. [facility] [place] [facility] ([facility]) [address] [facility] [place], [address], 01/02/2022 14:41:37 Result Notes None recorded. 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 hysterect tali, UFE, etc. 15cm fibroid uterus, with large submucus sessile myoma, failed D&C endometri al ablation, Jin navarro, [facility] 0 15:07:12 Candidias is 93280268 Active Jin navarro, [facility] 5 17:41:22 Deliverie s by [id number] Active Jin navarro, [facility] 5 17:41:22 Problem Notes None recorded. Procedures Surgical History Date Name Laterality Status Provider Name and Address Organization Details Recorded Time 06/08/19 21 Most Recent Mammogram completed HEATHER Heath SICarlos 08/22/2020 10:40:52 06/08/19 21 Date of Last Mammogram completed HEATHER Heath [facility] 06/28/2021 12:17:59 02/28/20 19 HYSTEROSCOPY, WITH ENDOMETRIAL ABLATION (SURG) completed Jin Zavala [facility] 03/02/2019 05:44:23 06/28/19 19 Date of Last Pap Smear completed Cesia MoralesshawHEATHER [facility] 12/09/2018 16:55:27 03/18/19 15 Breast Surgery completed Mehreen HEATHER Salmeron [facility] 10/11/2014 16:45:39 03/18/19 10 Colonoscopy completed Mehreen HEATHER Salmeron [facility] 10/11/2014 16:45:39 03/18/19 10 Other completed Mehreen HEATHER Salmeron [facility] 10/11/2014 16:45:39 03/18/19 03 Caesarean Section completed Mehreen Salmeron MA [facility] 10/11/2014 16:45:39 Imaging Results Imaging Date Name Status LastModified by Organization Details LastModified Time 03/19/2019 US, pelvis, transabdominal + transvaginal completed [facility] (Radiology) [address] [place] [address] [place], [address], 08/05/2019 10:50:56 06/07/2020 MAMMO, screening, bilateral completed [address] [place], [address], 08/23/2020 09:55:02 08/24/2021 US, pelvis, transabdominal + transvaginal completed [facility] (Radiology) [address] [place] [address] [place], [address], 12/26/2021 14:56:30 08/24/2021 MAMMO, screening, bilateral [facility] [address] [place] [address] [place], [address], 01/02/2022 14:41:37 Procedure Notes None recorded. Medical Equipment None Reported. Allergies No known drug allergies Medications Name Sig Start Date Stop Date Status Note LastModified by Organization Details LastModified Time Prescriptio n - New 08/22 completed Not Available Not Available Not Available multivitami n tablet Take 1 tablet every day by oral route. 08/22 completed Not Available Not Available Not Available losartan 50 mg tablet TAKE 1 TABLET BY MOUTH ONCE DAILY active Not Available Not Available No t Available cyclobenzap rine 10 mg tablet TAKE 1 TABLET BY MOUTH THREE TIMES DAILY NEEDED FOR MUSCLE SPASM active Not Available Not Available No t Available amoxicillin 500 mg capsule TAKE 1 CAPSULE BY MOUTH THREE TIMES DAILY UNTIL ALL TAKEN active Not Available Not Available No t Available fluconazole 100 mg tablet 12/09 completed Not Available Not Available Not Available methocarbam ol 500 mg tablet TAKE 1 TABLET BY MOUTH TWICE DAILY NEEDED FOR MUSCLE SPASM active Not Available Not Available No t Available buspirone 5 mg tablet Take 1 tablet twice a day by oral route. active Not Available Not Available No t Available prednisone 10 mg tablet active Not Available Not Available Not Available azithromyci n 250 mg tablet TAKE 2 TABLETS (500 MG) BY ORAL ROUTE ONCE DAILY FOR 1 DAY THEN 1 TABLET (250 MG) BY ORAL ROUTE ONCE DAILY FOR 4 DAYS 12/09 completed Not Available Not Available Not Available fluconazole 150 mg tablet take one tablet by mouth active Not Available Not Available No t Available metoprolol succinate ER 50 mg tablet,exte nded release 24 hr TAKE 1 TABLET BY MOUTH ONCE DAILY active Not Available Not Available No t Available hydrochloro thiazide 50 mg tablet TAKE 1 TABLET BY MOUTH ONCE DAILY active Not Available Not Available No t Available hydrocodone 5 mg-acetamin ophen 325 mg tablet TAKE 1 TABLET BY MOUTH EVERY 8 HOURS NEEDED FOR PAIN UP TO 7 DAYS active Not Available Not Available No t Available lisinopril 20 mg tablet TAKE 1 TABLET BY MOUTH ONCE DAILY active Not Available Not Available No t Available metoprolol succinate ER 100 mg tablet,exte nded release 24 hr TAKE 1 TABLET BY MOUTH ONCE DAILY active Not Available Not Available No t Available terconazole 0.8 % vaginal cream INSERT 1 APPLICATO RFUL VAGINALLY AT BEDTIME FOR 3 CONSECUTI VE DAYS active Not Available Not Available No t Available penicillin V potassium 500 mg tablet Take 1 tablet twice a day by oral route for 10 days. 12/09 completed Not Available Not Available Not Available amlodipine 5 mg tablet TAKE 1 TABLET BY MOUTH ONCE DAILY 12/22 completed Not Available Not Available Not Available simvastatin 40 mg tablet 12/09 completed Not Available Not Available Not Available amlodipine 10 mg tablet TAKE 1 TABLET BY MOUTH ONCE DAILY 12/22 completed Not Available Not Available Not Available benzonatate 100 mg capsule TAKE 1 CAPSULE BY MOUTH THREE TIMES DAILY NEEDED FOR COUGH active Not Available Not Available No t Available pantoprazol e 40 mg tablet,james yed release TAKE 1 TABLET BY MOUTH ONCE DAILY IN THE MORNING active Not Available Not Available No t Available nitrofurant oin macrocrysta l 100 mg capsule 12/09 completed Not Available Not Available Not Available nystatin 100,000 unit/gram topical cream APPLY TO THE AFFECTED AREA(S) BY TOPICAL ROUTE 2 TIMES PER DAY active Not Available Not Available No t Available lisinopril 10 mg tablet TAKE 1 TABLET BY MOUTH ONCE DAILY active Not Available Not Available No t Available hydrochloro thiazide 12.5 mg capsule 06/28 completed Not Available Not Available Not Available omeprazole 20 mg capsule,del ayed release Take 1 capsule twice a day by oral route for 14 days. 06/28 completed Not Available Not Available Not Available diclofenac sodium 75 mg tablet,james yed release TAKE 1 TABLET BY MOUTH TWICE DAILY active Not Available Not Available No t Available codeine 10 mg-guaifene sin 100 mg/5 mL oral liquid TAKE 10 ML BY MOUTH EVERY 6 HOURS NEEDED FOR COUGH FOR 7 DAYS active Not Available Not Available No t Available hydrochloro thiazide 25 mg tablet TAKE 1 TABLET BY MOUTH ONCE DAILY active Not Available Not Available No t Available norethindro ne acetate 5 mg tablet Take 1 tablet every day by oral route as directed for 90 days. 06/28 completed Not Available Not Available Not Available ergocalcife rol (vitamin D2) 1,250 mcg (50,000 unit) capsule 08/22 completed Not Available Not Available Not Available methylpredn isolone 4 mg tablets in a dose pack TAKE BY MOUTH DIRECTED ON INSIDE OF PACKAGE active Not Available Not Available No t Available amoxicillin 875 mg-potassiu m clavulanate 125 mg tablet TAKE 1 TABLET BY MOUTH EVERY 12 HOURS FOR 10 DAYS active Not Available Not Available No t Available amoxicillin 500 mg-potassiu m clavulanate 125 mg tablet 04/23 completed Not Available Not Available Not Available escitalopra m 10 mg tablet 04/23 completed Not Available Not Available Not Available pregabalin 75 mg capsule TAKE 1 CAPSULE BY MOUTH TWICE DAILY active Not Available Not Available No t Available hydrochloro thiazide 12.5 mg tablet TAKE 1 TABLET BY MOUTH ONCE DAILY 12/22 completed Not Available Not Available Not Available ferrous sulfate 324 mg (65 mg iron) tablet,james yed release 12/22 completed Not Available Not Available Not Available Bystolic 5 mg tablet 06/28 completed Not Available Not Available Not Available Calcium with Vitamin D 600 mg-10 mcg (400 unit) tablet Take 1 tablet twice a day by oral route. 08/22 completed Not Available Not Available Not Available Mimvey 1 mg-0.5 mg tablet take 1 tablet every day by oral route 02/24 completed Not Available Not Available Not Available Suprep Bowel Prep Kit 17.5 gram-3.13 gram-1.6 gram oral solution 04/23 completed Not Available Not Available Not Available Mimvey Lo 0.5 mg-0.1 mg tablet Take 1 tablet every day by oral route. 08/04 completed Not Available Not Available Not Available Rupal 24 Fe 1 mg-20 mcg (24)/75 mg (4) tablet TAKE 1 TABLET BY MOUTH ONCE DAILY DIRECTED active Not Available Not Available No t Available Slynd 4 mg (28) tablet TAKE 1 TABLET DAILY 12/22 completed Not Available Not Available Not Available Oriahnn 300-1-0.5 mg(AM)/300 mg(PM) capsules Take 1 capsule twice a day by oral route. 06/28 completed Not Available Not Available Not Available [employer] COVID-19 Antigen Home Test kit active Not Available Not Available Not Available Vitals Date Recorded Body height Provider Name an d Address Organization Details Last Updated DateTime 03/16/2019 167.64 cm Kelly Travis [place] [facility] 03/16/2019 15:39:08 Date Recorded Body mass index (BMI) Body weight Provider Name and Address Organization Details Last Updated DateTime 03/16/2019 30.3 kg/m2 37377.37 g HEATHER Rodríguez [facility] 03/16/2019 15:41:08 Date Recorded Heart rate Provider Name an d Address Organization Details Last Updated DateTime 03/16/2019 86 /min Kelly romero MA [facility] 03/16/2019 15:41:20 Date Recorded Body temperature Provider Name a nd Address Organization Details Last Updated DateTime 03/16/2019 98.2 [degF] Kelly Travis [facility] 03/16/2019 15:41:35 Date Recorded Body height Provider Name an d Address Organization Details Last Updated DateTime 08/05/2019 167.64 cm Arpita Anderson [facility] 08/04 10:27:45 Date Recorded Body mass index (BMI) Body weight Provider Name and Address Organization Details Last Updated DateTime 08/05/2019 30.7 kg/m2 36533.55 g Arpita Anderson [facility] 08/05/2019 10:27:58 Date Recorded Body height Provider Name an d Address Organization Details Last Updated DateTime 08/22/2020 170.18 cm Cesia Win [facility] 2020 10:36:45 Date Recorded Body mass index (BMI) Body weight Provider Name and Address Organization Details Last Updated DateTime 08/22/2020 30.7 kg/m2 61592.1 g Cesia Win [facility] 08/22/2020 10:36:52 Date Recorded Body height Provider Name an d Address Organization Details Last Updated DateTime 06/28/2021 170.18 cm Cesia Win [facility] 2021 12:22:13 Date Recorded Body mass index (BMI) Body weight Provider Name and Address Organization Details Last Updated DateTime 06/28/2021 31.6 kg/m2 63345.66 g Cesia Win [facility] 06/28/2021 12:22:23 Date Recorded Body height Provider Name an d Address Organization Details Last Updated DateTime 12/22/2021 170.18 cm Maddie Gudino [facility] 12/23/19 14:52:10 Date Recorded Body mass index (BMI) Body weight Provider Name and Address Organization Details Last Updated DateTime 12/22/2021 28.7 kg/m2 40642.83 g Maddie Gudino [facility] 12/22/2021 14:52:19 Date Recorded Systolic blood pressure Diastolic blood pressure Provider Name and Address Organization Details Last Updated DateTime 03/16/2019 124 mm[Hg] 80 mm[Hg] Kelly Travis MA [facility] 03/16/2019 15:41:16 Date Recorded Systolic blood pressure Diastolic blood pressure Provider Name and Address Organization Details Last Updated DateTime 08/22/2020 134 mm[Hg] 84 mm[Hg] Cesia Win MA [facility] 08/22/2020 10:45:48 Date Recorded Systolic blood pressure Diastolic blood pressure Provider Name and Address Organization Details Last Updated DateTime 06/28/2021 180 mm[Hg] 104 mm[Hg] Cesia Win MA [facility] 06/28/2021 12:25:56 Date Recorded Systolic blood pressure Diastolic blood pressure Provider Name and Address Organization Details Last Updated DateTime 12/22/2021 140 mm[Hg] 90 mm[Hg] Maddie Gudino MA [facility] 12/22/2021 14:57:29 Social History Question Answer Notes LastModified by Organizat ion Details LastModified Time Tobacco Smoking Status Never Smoker Mehreen Salmeron [place] [facility], [facility] 10/11/2014 16:45:39 Do You Have An Advance Directive? No Information not available 10/11/2014 What Is Your Level Of Alcohol Consumption? Moderate Information not available 08/22/2020 Is Blood Transfusion Acceptable In An Emergency? Yes Information not available 10/11/2014 What Is Your Level Of Caffeine Consumption? Moderate Information not available 10/11/2014 How Much Tobacco Do You Chew? None Information not available 10/11/2014 Are You Currently Employed? Yes Information not available 10/11/2014 What Type Of Diet Are You Following? REGULAR Information not available 10/11/2014 Which Illicit Or Recreational Drugs Have You Used? None Information not available 10/11/2014 Do You Or Have You Ever Used E-cigarettes Or Vape? Never Used Electronic Cigarettes Information not available 08/05/2019 Education 4 Year College Information not available 10/11/2014 What Is The Highest Grade Or Level Of School You Have Completed Or The Highest Degree You Have Received? 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 With Others Information not available 10/11/2014 What Was The Date Of Your Most Recent Tobacco Screening? 06/28/2021 Information not available 06/28/2021 How Many Children Do You Have? 2 Information not available 10/11/2014 Performs Monthly Self-breast Exam? Yes Information not available 10/11/2014 Do You Use Protection During Sex? No Information not available 10/11/2014 What Is Your Relationship Status? Information not available 10/11/2014 Do You Use Your Seat Belt Or Car Seat Routinely? Yes Information not available 08/22/2020 Seat Belts Used Routinely No Information not available 10/11/2014 Are You Sexually Active? Yes Information not available 10/11/2014 Do You Have Smoke And Carbon Monoxide Detectors In Your Home? Yes Information not available 08/22/2020 At What Age Did You Start Smoking Tobacco? 0 Information not available 10/11/2014 Are You Passively Exposed To Smoke? No Information not available 08/22/2020 Do You Or Have You Ever Used Smokeless Tobacco? Never Used Smokeless Tobacco Information not available 08/05/2019 How Much Tobacco Do You Smoke? No Information not available 10/11/2014 General Stress Level Low Information not available 10/11/2014 Do You Use Any Illicit Or Recreational Drugs? No Information not available 08/22/2020 Do You Use Sunscreen Routinely? Yes Information not available 10/11/2014 Has Tobacco Cessation Counseling Been Provided? No holly Information not available 06/26/2018 On What Date Was Tobacco Cessation Counseling Provided? 06/28/2021 Holly Answered No To The Tobacco Cessation Counseling Provided Question On 06/26/2018. Information not available 06/28/2021 How Many Years Have You Smoked Tobacco? 0 Information not available 10/11/2014 Do You Or Have You Ever Used Any Other Forms Of Tobacco Or Nicotine? No Information not available 08/22/2020 Sex: Unknown Functional Status Question Answer Note LastModified by Organizat ion Details LastModified Time What is your exercise level? Occasional Information not available 10/11/2014 Mental Status None recorded. Family History Relationship Description Onset Age of this Age Resolved Age Notes LastModified by Organization Details LastModified Time Father Heart disease 45 [email or web address] Not available 10/11 17:30:13 Brother Heart disease 43 [email or web address] Not available 10/11 17:30:13 Paternal Uncle Heart disease x2 Brothe rs [email or web address] Not available 10/11/2014 17:30:13 Medical History Condition Response Other N Breast Cancer N Lung Disease N Depression Y Breast Problem N Anesthesia Complications N Headaches/Migraines N Anxiety Disorder Y Arthritis Y Infertility N Polyps N Acid Reflux (GERD) N Cancer N Stroke N Endometriosis N High Cholesterol N Fibromyalgia N Kidney Disease N Heart Problems N Kidney or Bladder Problems Y Thyroid Problems N GI Problems Y Acne N Eating Disorder N Anemia N Ovarian Cancer N Diabetes N Blood Transfusions N Abuse/Domestic Violence N Asthma N Hepatitis N Heart Disease N Pre-Eclampsia N Hypertension Y Osteoporosis N Gynecological History Statement/Question Response Abnormal Pap N Date of Last Mammogram 06/07/2020 Flow Light Date of LMP 12/15/2021 On BCP's at Conception? N STIs/STDs N HPV Vaccine N Most Recent Mammogram 06/07/2020 Age at Menarche 12 Current Control Method None Age at First Child 32 Sexually Active? Y Menses Monthly N Date of Last Pap Smear 06/27/2018 Sexual Problems? 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) [address] [place] [address] 10/11/2014 16:03:22 10/11/2014 17:41:07 Gynecologic examination [id number] Family chandrika nning surveillance [id number] Screening mammography 16705459 Candidiasis [id number] Deliveries by [id number] Group [facility] reptococc carrier [id number] Jin Britt (SCHOOL JANITOR) [address] [place] [phone] 04/23/2017 14:18:04 04/23/2017 17:29:50 Gynecologic examination 59176591 Z01.411 Screening mammography 24 433557 Z12.31 [id number] Jin Britt (SCHOOL JANITOR) [address] [place] [address]28[address] 06/26/2018 15:59:28 06/27/2018 14:25:45 Gynecologic examination 25054532 Z01.419 Z11.51 Screening mammography 24 684949 Z12.31 Screening for disorder 859051334 Z13.9 family history of gout Perimenopa usal disorder 622190298 N95.9 Candidiasis 79092174 B37 .9 Exposure t o sexually transmissible disorder 401474759 Z20.2 [id number] HEATHER Lester (SCHOOL JANITOR) [address] [place] [address] 0 12/09/2018 16:13:58 12/10/2018 16:12:53 Perimenopausal disorder 303154097 N95.9 [id number] Jin Britt (SCHOOL JANITOR) [address] [place] [address] 72929[address]967 0 02/24/2019 16:38:54 02/25/2019 11:59:14 Perimenopausal disorder 035915327 N95.9 Menorrhagia 157886493 N9 2.0 [id number] Jin Britt (SCHOOL J[employer]ITOR) [address] [place] [phone] 0 03/16/2019 15:16:03 03/17/2019 11:04:01 Uterine leiomyoma 10482712 D25.9 discussed medicinal options depo lupron, progesteri n only pill, and surgical options. hysterecto my, UFE, etc. [id number] Jin Britt (SCHOOL J[employer]OR) [address] [place] [phone] 0 08/05/2019 09:04:43 08/06/2019 10:33:14 Uterine leiomyoma 48155077 D25.9 discussed medicinal options depo lupron, progesteri n only pill, and surgical options. hysterecto my, UFE, etc. 15cm fibroid uterus, with large submucus sessile myoma, failed D&C endometria l ablation, Gynecologi c examination 80946866 Z01.419 Z11.51 Menorrhagia 083931400 N9 2.0 [id number] Jin Zavala Balwinder (SCHOOL JANITOR) [address] [place] [id number] 08/22/2020 10:03:10 08/27/2020 13:49:50 Uterine leiomyoma 61458233 D25.9 Deliveries by [id number] Perimenopa usal disorder 990434478 N95.9 Gastroesop hageal reflux disease 027623768 K21.9 Helicobact er pylori gastrointestinal tract infection 759270406 B96.81 [id number] CHERY MORALES (SCHOOL JANITOR) [address] [place] [phone] 0 06/28/2021 12:07:45 06/30/2021 08:14:30 Gynecologic examination 69814153 Z01.419 Cervical cancer screenin NILM and HPV negative, Pap due in 2023.Breas t cancer screening: Reviewed recommenda tions for initiation at age 40 with annual screening. Discussed SBE. Last mammogram 06/07/20 [id number] onoscopy: UTDVulvova ginitis: routine nuswab, treat as neededCont raception: currently on Bilsovi, switching to Slynd.Diet /exercise: Counseled regarding importance of physical activity, healthy diet and appropriat e calcium intake. Screening for malignant neoplasm of breast 558182375 Z12.31 Screening mammogram ordered in clinic today. Counseled on importance of annual breast cancer screening. FHx not significan t for breast cancer Uterine leiomyoma 084426 05 D25.9 Last US Mar 2019 with enlarged uterus with multiple fibroids present. She had hysterosco pic D&C Feb 2019 with benign findings. Prescribed Slynd 4mg QD for AUB secondary to fibroids. Pt to start taking this and stop Bilsovi. Educated patient on Slynd and its common side effects. TVUS ordered to reassess fibroids. RTC in 3 months. Essential hypertension 89452244 I10 BP elevated on two separate occasions in clinic today (180/104 and 172/90). Pt states she is taking metoprolol and HCTZ for BP control. Currently asymptomat ic. Estrogen based contracept samaria discontinu ed as above. Pt has BP cuff at home, she is to start checking BP regularly and keeping a log to present to her PCP. Counseled pt to f/u with PCP regarding HTN control talon. Educated pt on strict ER precaution s. Pt to have a low threshold to present to ER if begins experienci ng refractory HTN, DANIEL, vision changes, CP, SOB, memory problems. Pt voiced understand ing. Generalize d anxiety disorder 13442315 F41.1 Worsening anxiety with panic attacks. Takes buspirone irregularl y per PCP. Counseled patient on proper usage of Buspirone. Counseled pt that behavioral therapy can be very beneficial for anxiety. Provided pt support and referral options. Educated pt to follow up with PCP regarding anxiety as well. [id number] CHERY MORALES (SCHOOL JANITOR) [facility] [place] [address] 12/22/2021 14:27:19 12/28/2021 11:45:43 Contraception care management 407882116 Z30.9 Pt has been on COCs per Dr. Zavala, tolerating well. Requesting refill today. Candidal vulvovaginitis 30405436 B37.9 Pt reporting pruritic rash from wearing pads. Declined PE today. Suspect candidal infection. Rx topical nystatin and Diflucan. Advised to keep area clean and dry. RTC if symptoms persist. Anxiety 83642937 F41.9 Takes buspirone for anxiety, requesting refill today. Uterine leiomyoma 717498 05 D25.9 TVUS Mar 2019 with enlarged uterus with multiple fibroids present. She had hysterosco pic D&C Feb 2019 with benign findings. Repeat TVUS August 2021 with fibroid uterus, largest fibroid measuring 4.6cm. Pt does not desire invasive procedure at this time. Bleeding controlled with OCPs, continue as prescribed . Health Concerns Section Related Observation LastModified by Organization Detai ls LastModified Time None Recorded Concern Status LastModified by Organization Details LastModified Time None Recorded Advance Directives Directive N: Payers Encounter Date Sequence Insurance Name Policy Number Policy Marie Covered Member ID Marie Member ID Guarantor Name 03/16/2019 1 [facility] [id number] Gabrielle Whitney [id number] Gabrielle Whitney 08/05/2019 1 [facility] [id number] Gabrielle Whitney [id number] Gabrielle Whitney 08/22/2020 1 [facility] [id number] Gabrielle Whitney [id number] Gabrielle Whitney 06/28/2021 1 [facility] [id number] Gabrielle Whitney [id number] Gabrielle Whitney 12/22/2021 1 [facility] [id number] Gabrielle Whitney [id number] Gabrielle Whitney Notes Date Note Type Note Provider Name and Address Organization Details Recorded Time 03/16/2019 text/html Patient is a 48 y/o female presenting for AUB. Patient has been taking Mimvey and continues to have menses > 6 days. She reports vaginal dryness as better. She also reports sleep disturbance and mood swings. s/p [facility] has fibroids CHRISTOPHER Blunt SICarlos 03/16/2019 18:37:31 08/05/2019 text/html 48 y/o fema le presenting for AUB. Patient has been taking NE 5mg and continues to have menses 6-8 days. She reports vaginal dryness as better. She also reports sleep disturbance and mood swings. s/p [facility] has fibroids CHRISTOPHER Blunt SICalros 08/05/2019 13:00:19 08/22/2020 text/html Annual GYNReport ed bypatient.History:n o gynecologic complaints Menstrual cycle:Normal menses Urinary symptoms:No hematuria; No incontinence Vulva:No genital lesion Vagina:Normal vaginal discharge Breast:No breast pain; No breast lump; No nipple discharge Current Contraception:Satis fied with current contraception Sexual complaints:No sexual complaints; No pain during intercourse; Normal libido Menopausal Symptoms:No menopausal symptoms; Normal vaginal lubrication Psychological symptoms:No depression; No anxiety; No PMDD Preventive measures:Encourage self breast examination; Encourage regular exercise; Encourage no tobacco use; Encourage regular mammograms starting age 40; Followed with Q3 year pap smear and high risk HPV typing; Needs to schedule mammogram 50 y/o female presenting for AUB. Patient has been taking NE 5mg and continues to have menses 6-8 days. She reports vaginal dryness as better. She also reports sleep disturbance and mood swings. s/p [facility] has fibroids Jin n[place]arro, [place] [facility] 08/23/2020 09:58:16 06/28/2021 text/html Annual GYNReport ed bypatient.Menstrual cycle:Irregular cycle intervals; Pt tried discontinuing Bilsovi in October and experienced menorrhagia. Started Bilsovi again and had several months of no bleeding ([id number]). Currently experiencing ~15 days/month of spotting for the last 2-3 months. Pt has hx of menorrhagia that has been controlled on Bilsovi. Previously on norethindrone but discontinued due to insurance coverage issues. Urinary symptoms:No hematuria; No incontinence Vulva:No genital lesion; Pt notes vulvar irritation and burning secondary to wearing a pantyliner all the time. Diaper rash cream has been attempted with minimal relief. Vagina:Normal vaginal discharge Breast:No breast pain; No breast lump; No nipple discharge Current Contraception:Oral contraceptives; Bilsovi, spotting while on it. Requests to adjust medication to control spotting Sexual complaints:No sexual complaints; No pain during intercourse Psychological symptoms:Anxiety; hx of PMS mood lability x10 years. Pt states extreme changes in mood and becomes irritable along with emotional prior to menses. Pt also reports panic attacks occurring at random times that are increasing in frequency. Two have occurred within the last 2 weeks. Pt able to talk herself down but experiences tachycardia and lightheadedness. Pt prescribed buspirone, but infrequently takes it and does not take it when a panic attack presents itself. Pt denies CP, SOB, exertional dyspnea, extremity edema. Pt has not been diagnosed with any mental health disorders or seen a behavioral health specialist Preventive measures:Encourage self breast examination; Encourage regular exercise; Needs to schedule mammogram Gabrielle Reyes is a 51 yo with a hx of uterine leiomyoma presenting for a wwe and to establish care. Pt previously followed by Dr. Zavala. Hypertension noted while patient was in clinic today. Elevated on two separate occasions (180/104 and 172/90). Pt states she took metoprolol and HCTZ this morning and is compliant with the medication. PCP is Dr. Tierney in [place], [place]. Pt denies CP, SOB, DANIEL, vision changes, lightheadedness. CHERY MORALES Attn: Accounting,[address] , [place], [address], [facility] 06/29/2021 14:57:24 12/22/2021 text/html 51 y/o fema le, with hx of uterine leiomyoma, who presents to discuss contraception. Pt was prescribed Slynd in June but has never taken it. Pt has been on Blisovi COCs for the past year, prescribed by Dr. Leblanc and recently ran out of refills. Pt is requesting to be on Blisovi again. LMP 930, having spotting now. Patient denies personal history of DVT/PE, uncontrolled HTN, cardiovascular disease, stroke, migraines, or seizures. She denies tobacco use. She also reports pruritic rash on vulva from wearing pads. Gets intermittent yeast infections. Requesting refill on buspirone which she takes for anxiety prn. Pap, Mammogram, and colonoscopy UTD. CHERY MORALES Attn: Accounting[address] , [place], [address], [facility] 12/26/2021 15:05:03 OBGyn Episode Ob Episode Information Episode Created Date Number of Fetuses Patient Bloodtype Patient rh Status Prepregnancy Weight lbs Domestic Partner Domestic Partner Phone Father Name Master Automotive Technician Status 10/12/19 15 2 CLOSED Fetus Data First Name Last Name Admitted to NICU Weight (g) Sex Living Outcome Pediatric Complications Fetus ID Race Codes Race Delivery Type 1841.58 352 M Prematur e [id number] Primary [id number] Ryan Calculation Initial Ryan Date Initial Exam Date Initial Exam Provider Initial Ultrasound Date Last Menstrual Period Date Ultra Sound Weeks Gestation 0 Eighteen To Twenty Week Ryan Update Ultra Sound Date Fundal Height At Umbil Quickening Date Ultra Sound Latest Weeks Gestation Final Ryan Confirmed By Final Ryan Confirmed Date Final Ryan Date Ultra Sound Latest Days Gestation 0 0 Menstrual History Last Menstrual Date Menses Monthly On Bcp Conception Prior Menses Frequency Hcg Plus Date Menarche Onset Age Delivery Information Delivery Date Delivery Type Labor Anesthesia Weeks Gestation Incision Type Labor Labor Length Hrs Delivered By Post Complications Tubal Sterilization Discharge Date Comments 3 [facility] idural 34 Discharge Information Feeding Method Contraceptive Method Maternal HG B and HCT Levels Ob Episode Information Episode Created Date Number of Fetuses Patient Bloodtype Patient rh Status Prepregnancy Weight lbs Domestic Partner Domestic Partner Phone Father Name Master Automotive Technician Status 10/12/19 15 2 CLOSED Fetus Data First Name Last Name Admitted to NICU Weight (g) Sex Living Outcome Pediatric Complications Fetus ID Race Codes Race Delivery Type 2068.37 952 M Prematur e [id number] Primary 1842.49 0704 M Prematur e [id number] Ryan Calculation Initial Ryan Date Initial Exam Date Initial Exam Provider Initial Ultrasound Date Last Menstrual Period Date Ultra Sound Weeks Gestation 0 Eighteen To Twenty Week Ryan Update Ultra Sound Date Fundal Height At Umbil Quickening Date Ultra Sound Latest Weeks Gestation Final Ryan Confirmed By Final Ryan Confirmed Date Final Ryan Date Ultra Sound Latest Days Gestation 0 0 Menstrual History Last Menstrual Date Menses Monthly On Bcp Conception Prior Menses Frequency Hcg Plus Date Menarche Onset Age Delivery Information Delivery Date Delivery Type Labor Anesthesia Weeks Gestation Incision Type Labor Labor Length Hrs Delivered By Post Complications Tubal Sterilization Discharge Date Comments 3 [facility] idural 33 [place] Discharge Information Feeding Method Contraceptive Method Maternal HG B and HCT Levels
== END 2024-04-09 11:27 | disposition home or self-care (01) ==
LOC: ANHLAB 11:27
PROVIDERS: PCP Family Medicine; Visit Provider Internal Medicine Hematology & Oncology
DX: D64.9 Anemia, unspecified (principal)
CPT/HCPCS: 36415; 82607; 82728; 82746; 83540; 83550; 85027

== ENCOUNTER 2024-09-29 13:48 | Outpatient (CLI) | payer OTHER, SELFPAY ==
--- OUTSIDE RECORDS SUMMARY | 2024-09-29 13:53 | XMS_ITS | Referral Summary ---
Author Organization [facility] Medical Office Building [address] Address [address] [place] [address] Care Team Providers Care Adjunct Professor Of English Name Role Phone Jin Zavala MD Unavailable [phone] Kia Tsai MD Unavailable Giovanny Tierney MD Primary Care Provider [phone] Allergies No known active allergies Medications cholecalciferol (VITAMIN D-3) 50,000 unit capsule Take 50,000 Units by mouth once a week Active multivitamin tablet multivitamin tablet Take 1 tablet every day by oral route. Active calcium carbonate (OS-KYLAH) 1,250 MG (500 mg of elemental calcium) tablet Take 1 tablet by mouth daily Active nebivoloL (Bystolic) 2.5 mg tablet Take 2.5 mg by mouth daily Active ferrous sulfate ER 324 mg (65 mg iron) EC tabletIndications :Iron deficiency anemia due to chronic blood loss Take 1 tablet (324 mg total) by mouth daily with breakfast 90 tablet 3 08/23/19 21 Active Additional Information Patient not taking.Reported on 10/17/2022 hydroCHLOROthiazi de (HYDRODIURIL) 12.5 mg tabletIndications :Hypertension, essential Take 1 tablet (12.5 mg total) by mouth daily 90 tablet 3 09/13/19 21 Active docusate sodium (COLACE) 100 mg capsule Take 1-2 pills once daily in the evening as needed for chronic constipation issues 60 capsule 1 11/11/19 21 Active Additional Information Patient not taking.Reported on 10/17/[address] (PROTONIX) 40 mg EC tablet Take 1 tablet (40 mg total) by mouth daily 90 tablet 3 11/11/19 21 Active methocarbamoL (ROBAXIN) 500 mg tabletIndications :Lumbar radiculopathy Take 1 tablet (500 mg total) by mouth 2 (two) times a day as needed for muscle spasms 60 tablet 05/17/19 23 Active Additional Information Patient not taking.Reported on 11/20/[address] (VOLTAREN) 75 mg EC tablet Take 1 tablet (75 mg total) by mouth 2 (two) times a day 60 tablet 05/17/19 23 Active metoprolol XL (TOPROL-XL) 100 mg 24 hr tablet 09/20/19 23 Active losartan (COZAAR) 50 mg tablet Take 1 tablet (50 mg total) by mouth daily 11/10/19 23 Active medroxyPROGESTERo ne (PROVERA) 10 mg tabletIndications :Abnormal Uterine Bleeding due to Hormonal Imbalance Take 1 tablet (10 mg total) by mouth as directed Take 10mg (1 tablet) 3 times daily for 10 days followed by 10mg (1 tablet) 2 times daily for 10 days 50 tablet 03/15/20 23 Active Active Problems Problem Noted Date Diagnosed Date DDD (degenerative disc disease), lumbar 05/23/19 Insomnia secondary to chronic pain 05/16/2022 Lumbar radiculopathy 04/26/2022 Chronic left-sided low back pain with left-sided sciatica 04/26/2022 Sacroiliitis 04/26/2022 Intermittent constipation 11/10/2020 Epigastric pain 11/10/2020 Dyspepsia 11/10/2020 Hiatal hernia 11/10/2020 Hepatic steatosis 10/19/2020 Assessment & Plan (10/19/2020 10:46 AM CDT): Patient has begun exercise program but states that she is hesitant about d ieting. She reports a remote history of a e ating disorder. She understands though that weight loss is recommendation for fatty liver. Advised against using alcohol as a sleep aid at night, as this could make the fatty liver worse. Generalized postprandial abdominal pain 08/24/19 Assessment & Plan (10/19/2020 10:42 AM CDT): Patient reports that she started probiotics about a week and half ago and is hopeful that this will help her stomach. Again, patient was encouraged to follow-up with gastroenterology. 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 Labs ordered. Referral placed to GI. H/O hemorrhoidectomy 08/19/2020 History of 2019 novel coronavirus disease (COVID -19) 08/19/2020 Iron deficiency anemia due to chronic blood loss 03/25/2020 Assessment & Plan (10/19/2020 10:43 AM CDT): Labs ordered, will follow. Continue current supplements. Assessment & Plan (03/25/2020 3:04 PM NET DEVELOPER ARCHITECT): Asx. Labs ordered. Vitamin D deficiency 06/23/2019 Assessment & Plan (10/19/2020 10:43 AM CDT): Labs ordered, will follow. Intramural and submucous leiomyoma of uterus 12/2019 Overview (05/26/2019): Added automatically from request for surgery [id number] Uterine leiomyoma 03/16/2019 Menorrhagia 02/24/2019 Gastroesophageal reflux disease without esophagi tis 02/16/2019 Assessment & Plan (10/19/2020 10:42 AM CDT): Still admits to having some breakthrough heartburn. Patient encouraged to see cabin agent. Patient was given referral in August of 2020 for Gastroenterology. Patient encouraged to reach out to about office to schedule an appointment. Continue omeprazole. Assessment & Plan (03/25/2020 3:03 PM NET DEVELOPER ARCHITECT): Asx. Continue current therapy. Assessment & Plan (02/16/2019 10:43 AM NET DEVELOPER ARCHITECT): ASx. Cont. Current meds. Patient reports that she has plenty of medications and therefore does not need any refills at this time. Hypertension, essential 02/16/2019 Assessment & Plan (10/19/2020 10:41 AM CDT): Blood pressure at goal of less than 140/90. Continue current management. Assessment & Plan (03/25/2020 3:03 PM NET DEVELOPER ARCHITECT): At goal, continue current meds. Assessment & Plan (02/16/2019 10:42 AM NET DEVELOPER ARCHITECT): Stable. Cont. Current meds. Patient reports that she has plenty of medications and therefore does not need any refills at this time. DUB (dysfunctional uterine bleeding) 02/16/2019 Assessment & Plan (10/19/2020 10:43 AM CDT): Under the care of gynecology, recently started a new oral contraceptive pill. Assessment & Plan (02/16/2019 10:42 AM NET DEVELOPER ARCHITECT): Encouraged patient to keep david appt with [facility]IOLOG[facility] TECHNOLOG[facility] on Mar 19, 2019. Irregular heart beats 02/16/2019 Generalized anxiety disorder 02/16/2019 Assessment & Plan (02/16/2019 10:43 AM NET DEVELOPER ARCHITECT): Non-compliant with meds, encouraged compliance. Patient reports that she has plenty of medications and therefore does not need any refills at this time. Class 1 obesity due to exces s calories with serious comorbidity and body mass index (BMI) of 30.0 to 30.9 in adult 02/16/2019 Assessment & Plan (10/19/2020 10:44 AM CDT): Weight reduction, daily exercise and dietary modifications recommended. Assessment & Plan (03/25/2020 3:04 PM NET DEVELOPER ARCHITECT): Weight reduction, daily exercise and dietary modifications recommended. Assessment & Plan (02/16/2019 10:41 AM NET DEVELOPER ARCHITECT): Unchanged. Encouraged patient to decrease weight, increase daily exercise, and modify diet. Carrier of group B Streptococcus 07/02/2018 Perimenopausal disorder 06/26/2018 Resolved Problems Problem Noted Date Diagnosed Date Resolved Date Candidiasis 05/25/2019 03/22/2020 Delivery by section 05/25/2019 03/22/2020 Screening for other and unsp ecified endocrine, nutritional, metabolic and immunity disorders 06/26/2018 03/22/2020 Immunizations Immunization Administration Dates Next Due Influenza, Unspecified 03/12/2019(Deferr ed: Patient Refused),01/04/2019(Deferred: Patient Refused),01/12/2018(Deferred: Patient Refused),12/30/2017(Deferred: Patient Refused),03/04/2017(Deferred: Patient Refused) Tdap 02/16/2019 Social History Tobacco Use Types Packs/Day Years Used Date Smoking Tobacco: Never Smokeless Tobacco: Never Tobacco Cessation:Counseling Given: Not Answered Alcohol Use Standard Drinks/Week Comments No 0 (1 standard drink = 0.6 oz pur e alcohol) PHQ-2 Answer Date Recorded PHQ-2 Total Score (If total score is 3 or more points, staff should administer the PHQ-9) 0 04/26/2022 Personal Safety Answer Date Recorded Have you ever been in or are you currently in a harmful physical or emotional relationship or is someone making you feel afraid or unsafe? Denies 03/15/2023 Comments No Sex and Gender Information Value Date Recorded Sex Assigned at Not on file Legal Sex Female 1:57 AM NET DEVELOPER ARCHITECT Gender Identity Not on file Sexual Orientation Not on file Last Filed Vital Signs Vital Sign Reading Time Taken Comments Blood Pressure 142/77 03/15/2023 4:36 AM NET DEVELOPER ARCHITECT Pulse 71 03/15/2023 4:36 AM NET DEVELOPER ARCHITECT Temperature 36.7 C (98.1 F) 03/15/2023 4:19 AM NET DEVELOPER ARCHITECT Respiratory Rate 20 03/15/2023 4:36 AM NET DEVELOPER ARCHITECT Oxygen Saturation 100% 03/15/2023 4:36 AM NET DEVELOPER ARCHITECT Inhaled Oxygen Concentration - - Weight 77.6 kg (171 lb) 03/14/2023 5:42 PM NET DEVELOPER ARCHITECT Height 170.2 cm (5' 7) 03/14/2023 5:42 PM NET DEVELOPER ARCHITECT Body Mass Index 26.78 03/14/2023 5:42 PM NET DEVELOPER ARCHITECT Plan of Treatment Not on file Procedures Procedure Name Priority Date/Time Associated Diagnosis Comments SCREENING MAMMOGRAM BILATERAL [facility] [place] Schedule Routine, Read Routine (OP Routine) 08/24/2021 1:31 PM CDT Screening mammogram, encounter for HEPATITIS C ANTIBODY Routine 10/19/2020 10:57 AM CDT Encounter for hepatitis C screening test for low risk patient HM PAP SMEAR WITH HPV Routine 06/27/2018 COLONOSCOPY Routine 12/24/2016 from Last 3 Months or Most Recently Relevant to Health Maintenance Results * Screening Mammogram Bilateral [facility] [place] (08/24/2021 1:31 PM CDT) Anatomical Region Laterality Modality Breast Bilateral Mammography 08/24/2021 4:13 PM CDT Impressions 08/24/2021 4:13 PM CDT There is no mammographic evidence of malignancy. A 1 year screening mammogram is recommended. BI-RADS: 1 - Negative. The patient has been or will be contacted. The patient will be entered into a reminder system with a target due date of 1 year for her next mammogram. Electronically signed by: Eric Monte M.D. Narrative 08/24/2021 4:13 PM CDT EXAMINATION: SCREENING MAMMOGRAM BILATERAL [facility] [place] ORDERING HEALTHCARE PROVIDER: SELF SCREENING MAMMOGRAM HISTORY: Routine screening mammography. COMPARISON: 06/07/2020, 09/23/2018 TECHNIQUE: CC and MLO views of the bilateral breasts were obtained with digital technique using breast tomosynthesis with C view. Computer aided detection was utilized. FINDINGS: DENSITY: There are scattered fibroglandular elements in the bilateral breasts. BREASTS: There are no suspicious masses, suspicious calcifications, or other suspicious findings in either breast. There has been no suspicious interval change. us Self Screening Mammogram IMG MAMMO PROCEDURES Fi nal Result * Hepatitis C antibody (10/19/2020 10:57 AM CDT) Hep C Ab Nonreactive Nonreactive [facility] ([facility]) Comment: Interpretive Data Nonreactive: Antibodies to HCV not detected. Does NOT exclude the possibility of recent exposure to HCV. Equivocal: Equivocal for HCV antibodies. Supplemental molecular testing will be automatically performed to determine infection status in accordance with current CDC screening recommendations. Reactive: Positive for HCV antibodies. This may represent current or past HCV infection. Supplemental molecular testing will be automatically performed to determine current infection status in accordance with current CDC screening recommendations. Interpretive data was last revised on 2019. Testing performed by: [facility], [address] [place] [address], [place]., [address] Blood specimen (specimen) 10/19/2020 10:57 AM CDT 10/19/2020 4:46 PM CDT Sangeeta Pelaez DO LAB MICROBIOLOGY - GENERAL ORDERABLES Final Result Performing Organization Address City/State/[facility] Co de Phone Number [facility] ([place]) [facility] Department [place] [address] * PAP SMEAR WITH HPV (06/27/2018) Pap smear Normal Historical Provider HEALTH MAINTENANCE Final Result * Colonoscopy (12/24/2016) Anatomical Region Laterality Modality Other Historical Provider MD ENDOSCOPY PROCEDURES Erlinda l Result from Last 3 Months or Most Recently Relevant to Health Maintenance Insurance [facility] [employer] Care Teams Adjunct Professor Of English Relationship Specialty Start Date End Date Giovanny Tierney MD PCP - General Family Medicine 01/23/21 Jin Zavala MD Referring Physician Obstetrics and Gynecology 04/29/19 Kia Tsai MD Consulting Physician Gastroenterology 03/22/20
--- OUTSIDE RECORDS SUMMARY | 2024-09-29 13:53 | XMS_ITS | Data Portability ---
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 Lab pregnanc y test, urine 2021 022 In-Office Order, Internal Use Only DO Not Attach Compendium DO Not Attach Compendium, Do Not Delete/merge, [id number] 15:07:21 bacteria l vaginosi s score, ANAMARIA+prob e, vaginal fluid (OBS) 2021 022 RAYMUNDO [facility], [address], [place], [address], 03:06:27 urinalys is, dipstick 2020 021 holly In-Office Order, Internal Use Only DO Not Attach Compendium DO Not Attach Compendium, Do Not Delete/merge, [id number] 18:02:59 H pylori urea breath test, co2 infrared 2020 021 [email or web address] [facility], [address], [place], [address], 1 14:46:59 Referral psychiat rist referral 2021 RAYMUNDO [facility] (), [address] [place], [address], 2 19:31:42 counseli ng referral 2021 RAYMUNDO Britt (), [address] [place], [address], 2 19:31:33 Procedures None recorded . Surgeries None recorded . Imaging MAMMO, screenin g, bilatera l 2021 RAYMUNDODEBO Balderrama (Radiology), [address] [facility], [address], 2 10:02:36 US, pelvis, transabd ominal + transvag inal 2021 RAYMUNDODEBO Balderrama (Radiology), [address] [place], [address], 2 17:23:28 US, pelvis, transabd ominal + transvag inal 2018 019 RAYMUNDODEBO Balderrama (Radiology), [address] [place], [address], 0 11:16:35 Medication Orders nystatin 100,000 unit/gra m topical cream 2021 [facility], [address] [place] [address], [place], [address], 2 15:28:45 fluconaz ole 150 mg tablet 2021 [facility], [facility] [place], [address], 2 15:28:45 buspiron e 5 mg tablet 2021 RAYMUNDO [facility], [facility] [place], [address], 15:28:47 Junel Fe 24 1 mg-20 mcg (24)/75 mg (4) tablet 2021 [facility], [facility] [place], [address], 14:56:29 Slynd 4 mg (28) tablet 2021 [facility], [address] [place] [address], [address], 14:54:16 omeprazo le 20 mg capsule, delayed release 2020 [facility], [address] [place] [address], [address], 12:20:14 Oriahnn 300-1-0. 5 mg(AM)/3 00 mg(PM) capsules 2020 [facility], [address] [place] [address], [address], 12:25:12 multivit franks tablet 2019 [facility]38316, [address], [place], [place], [phone], 10:37:47 Calcium with Vitamin D 600 mg-10 mcg (400 unit) tablet 2019 [facility] #04151, [address], [place], [place], [id number], 10:37:25 norethin drone acetate 5 mg tablet 2019 020 [facility] #11662, [address], [place], [place], [id number], 12:20:00 norethin drone acetate 5 mg tablet 2018 019 [facility] #05244, [address], [place], [place], [id number], 12:20:00 norethin drone acetate 5 mg tablet 2018 019 [facility], [address] [place] [address], [address], 12:20:00 Patient TargetsNo targets recorded. Patient Instructions Encounter Date Encounter Id Patient Instructions Last Modified By Organization Details Last Modified Time 03/16/2019 [id number] uterine fibroids : care instructions mwasserman Not available 03/16/2019 16:30:29 08/05/2019 [id number] heavy menstrual periods: care instructions mwasserman Not available 08/05/2019 13:00:16 uterine fibroids : care instructions mwasserman Not available 08/05/2019 10:53:46 08/22/2020 [id number] learning about menopause mwasserman Not available 08/22/2020 18:02:59 gastroesophageal reflux disease (GERD): care instructions mwasserman Not available 08/22/2020 11:46:19 H. pylori bacter ial infection: care instructions mwasserman Not available 08/22/2020 11:46:19 uterine fibroids : care instructions mwasserman Not available 08/22/2020 18:02:59 06/28/2021 [id number] well visit, wome n 50 to 65: care instructions Not available 06/28/2021 12:49:19 learning about breast cancer screening Not available 06/28/2021 12:49:19 Reason for Referral Psychiatrist Referral for Ge neralized anxiety disorder Referring Physician: Ellyn Perkins, [place], Encounter Date: 06/28/2021 Counseling Referral for Gene ralized anxiety disorder Referring Physician: Ellyn Perkins, [place], Encounter Date: 06/28/2021 Results Created Date Observation Date Name Description Value Unit Range Abnormal Flag Note LastModifiedBy Organization Detail LastModifiedTime 08/23/19 21 08/22/2020 urina lysis , dipst ick Leukocytes Negati ve Not Available In-Office Order Internal Use Only DO Not Attach Compendium DO Not Attach Compendium, Do Not Delete/merge, [facility] 08/22/2020 10:49:56 08/23/19 21 08/22/2020 urina lysis , dipst ick Nitrite negati ve Not Available In-Office Order Internal Use Only DO Not Attach Compendium DO Not Attach Compendium, Do Not Delete/merge, [facility] 08/22/2020 10:49:56 08/23/1908/22/2020 urina lysis , dipst ick Urobilinogen .2 Not Available In-Of fice Order Internal Use Only DO Not Attach Compendium DO Not Attach Compendium, Do Not Delete/merge, [facility] 08/22/2020 10:49:56 08/23/19 21 08/22/2020 urina lysis , dipst ick Protein Negati ve Not Available In-Office Order Internal Use Only DO Not Attach Compendium DO Not Attach Compendium, Do Not Delete/merge, [facility] 08/22/2020 10:49:56 08/23/1908/22/2020 urina lysis , dipst ick pH 6.0 Not Available In-Office Order Internal Use Only DO Not Attach Compendium DO Not Attach Compendium, Do Not Delete/merge, [facility] 08/22/2020 10:49:56 08/23/1908/22/2020 urina lysis , dipst ick Blood Large Not Available In-Office Order Internal Use Only DO Not Attach Compendium DO Not Attach Compendium, Do Not Delete/merge, [facility] 08/22/2020 10:49:56 08/23/1908/22/2020 urina lysis , dipst ick Specific Cardwell 1.025 Not Available In-Off ice Order Internal Use Only DO Not Attach Compendium DO Not Attach Compendium, Do Not Delete/merge, [facility] 08/22/2020 10:49:56 08/23/1908/22/2020 urina lysis , dipst ick Ketone Negati ve Not Available In-Office Order Internal Use Only DO Not Attach Compendium DO Not Attach Compendium, Do Not Delete/merge, [facility] 08/22/2020 10:49:56 08/23/19 21 08/22/2020 urina lysis , dipst ick Bilirubin Negati ve Not Available In-Office Order Internal Use Only DO Not Attach Compendium DO Not Attach Compendium, Do Not Delete/merge, [facility] 08/22/2020 10:49:56 08/23/19 21 08/22/2020 urina lysis , dipst ick Glucose Negati ve Not Available In-Office Order Internal Use Only DO Not Attach Compendium DO Not Attach Compendium, Do Not Delete/merge, [facility] 08/22/2020 10:49:56 08/23/1908/23/2020 H pylor i urea breat h test, co2 infra red H pylori breath test Negati ve negati ve Not Available [facility] ([facility]) [address] [place], [address], 08/23/2020 16:11:29 06/29/19 22 07/02/2021 NUSWA B VG+, HSV atopobium vaginae LOW - 0 score Not Available [facility] ([facility]) [address] [place], [address], 07/03/2021 03:06:27 06/29/19 22 07/02/2021 NUSWA B VG+, HSV bvab 2 LOW - 0 score Not Available [facility] ([facility]) [address] [place], [address], 07/03/2021 03:06:27 06/29/19 22 07/02/2021 NUSWA B [...] Drug Admin istra tion. Not Available [facility] ([facility]) [address] [place], [address], 07/03/2021 03:06:27 06/29/19 22 07/02/2021 NUA B VG+, HSV edward albicans, ANAMARIA NEGATI VE negati ve Not Available [facility] ([facility]) [address] [place], [address], 07/03/2021 03:06:27 06/29/19 22 07/02/2021 NUSWA B VG+, HSV edward glabrata, ANAMARIA NEGATI VE negati ve Not Available [facility] ([facility]) [address] [place], [address], 07/03/2021 03:06:27 06/29/19 22 07/02/2021 NUSWA B VG+, HSV trich vag by ANAMARIA NEGATI VE negati ve Not Available [facility] ([facility]) [address] [place], [address], 07/03/2021 03:06:27 06/29/19 22 07/02/2021 NUSWA B VG+, HSV chlamydia trachomatis, ANAMARIA NEGATI VE negati ve Not Available [facility] ([facility]) [address] [place], [address], 07/03/2021 03:06:27 06/29/19 22 07/02/2021 NUSWA B VG+, HSV neisseria gonorrhoeae, ANAMARIA NEGATI VE negati ve Not Available [facility] ([facility]) [address] [facility], [place], [address], 07/03/2021 03:06:27 06/29/19 22 07/03/2021 NUSWA B VG+, HSV hsv 1 ANAMARIA NEGATI VE negati ve Not Available [facility] ([facility]) [address] [facility], [place], [address], 07/03/2021 03:06:27 06/29/19 22 07/03/2021 NUA B VG+, HSV hsv 2 ANAMARIA NEGATI VE negati ve Not Available [facility] ([facility]) [address] [facility], [place], [address], 07/03/2021 03:06:27 12/23/19 22 12/22/2021 pregn ambika test, urine HCG negati ve Not Available In-Office Order Internal Use Only DO Not Attach Compendium DO Not Attach Compendium, Do Not Delete/merge, [id number] 12/22/2021 14:44:53 03/23/19 20 03/19/2019 US, pelvi s, trans abdom inal + trans vagin al No observ ation record ed. [facility] (Radiology) [address] [place] [address] [place], [address], 08/05/2019 10:50:56 06/09/19 21 06/07/2020 MAMMO , scree angelito, bilat eral No observ ation record ed. [address] [place], [address], 08/23/2020 09:55:02 08/29/19 22 08/24/2021 US, pelvi s, trans abdom inal + trans vagin al No observ ation record ed. [facility] (Radiology) [address] [place], [address], 12/26/2021 14:56:30 12/27/19 22 08/24/2021 MAMMO , cecilye angelito, bilat josesitol No observ ation record ed. [facility] [address] [place], [address], 01/02/2022 14:41:37 Result Notes None recorded. 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 hysterect tali, UFE, etc. 15cm fibroid uterus, with large submucus sessile myoma, failed D&C endometri al ablation, Jin navarro, [place] [facility] 0 15:07:12 Candidias is 19923098 Active Jin navarro, [place] [facility] 5 17:41:22 Deliverie s by [id number] Active Jin navarro, [place] [facility] 5 17:41:22 Problem Notes None recorded. Procedures Surgical History Date Name Laterality Status Provider Name and Address Organization Details Recorded Time 06/08/19 21 Most Recent Mammogram completed HEATHER Heath [facility] 08/22/2020 10:40:52 06/08/19 21 Date of Last Mammogram completed HEATHER Heath [facility] 06/28/2021 12:17:59 02/28/20 19 HYSTEROSCOPY, WITH ENDOMETRIAL ABLATION (SURG) completed Jin Zavala [facility] 03/02/2019 05:44:23 06/28/19 19 Date of Last Pap Smear completed Cesia MoralesHEATHER sierra [facility] 12/09/2018 16:55:27 03/18/19 15 Breast Surgery completed Mehreen SalmeronHEATHER [facility] 10/11/2014 16:45:39 03/18/19 10 Colonoscopy completed Mehreen SalmeronHEATHER [facility] 10/11/2014 16:45:39 03/18/19 10 Other completed Mehreen SalmeronHEATHER [facility] 10/11/2014 16:45:39 03/18/19 03 Caesarean Section completed Mehreen SalmeronHEATHER [facility] 10/11/2014 16:45:39 Imaging Results None recorded. Procedure Notes None recorded. Medical Equipment None [...] Not Available Vitals Date Recorded Body height Body mass index (BMI) Body weight Systolic And Diastolic Provider Name and Address Organization Details Last Updated DateTime 06/28/2021 170.18 cm 31.6 kg/m2 90496.66 g 180/104 mm[Hg] Cesia Win MA [facility] 06/28/2021 12:25:56 Date Recorded Body height Body mass index (BMI) Body weight Provider Name and Address Organization Details Last Updated DateTime 08/05/2019 167.64 cm 30.7 kg/m2 51955.55 g Arpita Anderson MA [facility] 08/05/2019 10:27:58 Date Recorded Body height Body mass index (BMI) Body weight Systolic And Diastolic Provider Name and Address Organization Details Last Updated DateTime 08/22/2020 170.18 cm 30.7 kg/m2 17144.1 g 134/84 mm[Hg] Cesia Win MA [facility] 08/22/2020 10:45:48 Date Recorded Body height Body mass index (BMI) Body weight Systolic And Diastolic Provider Name and Address Organization Details Last Updated DateTime 12/22/2021 170.18 cm 28.7 kg/m2 25746.83 g 140/90 mm[Hg] Maddie Gudino MA [facility] 12/22/2021 14:57:29 Date Recorded Body height Body mass index (BMI) Body weight Heart rate Body temperature Systolic And Diastolic Provider Name and Address Organization Details Last Updated DateTime 9 167.64 cm 30.3 kg/m2 74577.3 7 g 86 /min 98.2 [degF] 124/80 mm[Hg] Kelly Travis MA [facility] 9 15:41:16 Social History Question Answer Notes LastModified by Organizat ion Details LastModified Time Tobacco Smoking Status Never Smoker Mehreen Salmeron, [facility] [place] [facility] 10/11/2014 16:45:39 Do You Have An Advance Directive? No Information not available 10/11/2014 Is Blood Transfusion Acceptable In An Emergency? Yes Information not available 10/11/2014 What Is Your Level Of Caffeine Consumption? Moderate Information not available 10/11/2014 How Much Tobacco Do You Chew? None Information not available 10/11/2014 What Type Of Diet Are You Following? REGULAR Information not available 10/11/2014 Which Illicit Or Recreational Drugs Have You Used? None Information not available 10/11/2014 Education 4 Year College Information not available 10/11/2014 What Is The Highest Grade Or Level Of School You Have Completed Or The Highest Degree You Have Received? [id number] Information not available 08/22/2020 Live Alone Or With Others? With Others [...] To Smoke? No Information not available 08/22/2020 How Much Tobacco Do You Smoke? No Information not available 10/11/2014 General Stress Level Low Information not available 10/11/2014 Do You Use Sunscreen Routinely? Yes Information not available 10/11/2014 Has Tobacco Cessation Counseling Been Provided? No [email or web address] Information not available 06/26/2018 On What Date Was Tobacco Cessation Counseling Provided? 06/28/2021 Holly Answered No To The Tobacco Cessation Counseling Provided Question On 06/26/2018. Information not available 06/28/2021 How Many Years Have You Smoked Tobacco? 0 Information not available 10/11/2014 Sex: Unknown Functional Status Question Answer Note LastModified by Organizat ion Details LastModified Time Do you use any illicit or recreational drugs? No Information not available 08/22/2020 Do you or have you ever used any other forms of tobacco or nicotine? No Information not available 08/22/2020 What is your level of alcohol consumption? Moderate Information not available 08/22/2020 Do you or have you ever used smokeless tobacco? Never used smokeless tobacco Information not available 08/05/2019 Are you currently employed? 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 Never used electronic cigarettes Information not available 08/05/2019 What is your exercise level? Occasional Information [...] available 10/11/2014 17:30:13 Medical History Condition Response Heart Problems N Other N Breast Cancer N Thyroid Problems N Kidney or Bladder Problems Y Lung Disease N GI Problems Y Depression Y Acne N Eating Disorder N Breast Problem N Anemia N Anesthesia Complications N Headaches/Migraines N Ovarian Cancer N Diabetes N Anxiety Disorder Y Blood Transfusions N Arthritis Y Polyps N Infertility N Acid Reflux (GERD) N Cancer N Stroke N Abuse/Domestic Violence N Asthma N Endometriosis N High Cholesterol N Hepatitis N Heart Disease N Fibromyalgia N Pre-Eclampsia N Hypertension Y Osteoporosis N Kidney Disease N Gynecological History Statement/Question Response Abnormal Pap [...] SNOMED-CT Code Diagnosis ICD10 Code Diagnosis Note [id number] [facility]) [address] [place] [phone] 10/11/2014 16:03:22 10/11/2014 17:41:07 Gynecologic examination 33523028 Family chandrika nning surveillance [id number] Screening mammography 18183516 Candidiasis 32851723 Deliveries by [id number] Group B St reptococcus carrier [id number] MD Balwinder Ferraro ([employer]) [address] [place] [phone] 04/23/2017 14:18:04 04/23/2017 17:29:50 Gynecologic examination 07820190 Z01.411 Screening mammography 24 090167 Z12.31 [id number] MD Balwinder Ferraro ([employer]) [address] [place] [phone] 06/26/2018 15:59:28 06/27/2018 14:25:45 Gynecologic examination 29511189 Z01.419 Z11.51 Screening mammography 24 750153 Z12.31 Screening for disorder 665517210 Z13.9 family history of gout Perimenopa usal disorder 004041041 N95.9 Candidiasis 83237368 B37 .9 Exposure t o sexually transmissible disorder 844407029 Z20.2 [id number] Jin Zavala MD [facility] ([employer]) [address] [place] [phone] 12/09/2018 16:13:58 12/10/2018 16:12:53 Perimenopausal disorder 075702881 N95.9 [id number] Jin Zavala MD [facility] ([employer]) [address] [place] [phone] 02/24/2019 16:38:54 02/25/2019 11:59:14 Perimenopausal disorder 901861820 N95.9 Menorrhagia 435186751 N9 2.0 [id number] Jin Zavala MD [facility] ([employer]) [address] [place] [phone] 03/16/2019 15:16:03 03/17/2019 11:04:01 Uterine leiomyoma 89825870 D25.9 discussed medicinal options depo lupron, progesteri n only pill, and surgical options. hysterecto my, UFE, etc. [id number] MD [facility]) [address] [place] [phone] 08/05/2019 09:04:43 08/06/2019 10:33:14 Uterine leiomyoma 83170214 D25.9 discussed medicinal options depo lupron, progesteri n only pill, and surgical options. hysterecto my, UFE, etc. 15cm fibroid uterus, with large submucus sessile myoma, failed D&C endometria l ablation, Gynecologi c examination 35333913 Z01.419 Z11.51 Menorrhagia 382345970 N9 2.0 [id number] Jin Zavala MD [facility] ([employer]) [address] [place] [phone] 08/22/2020 10:03:10 08/27/2020 13:49:50 Uterine leiomyoma 81263235 D25.9 Deliveries by [id number] O82 Perimenopa usal disorder 405689215 N95.9 Gastroesop hageal reflux disease 517479365 K21.9 Helicobact er pylori gastrointestinal tract infection 364468464 B96.81 [id number] CHERY MORALES ([employer]) [address] [place] [phone] 06/28/2021 12:07:45 06/30/2021 08:14:30 Gynecologic examination 66849991 Z01.419 Cervical cancer screenin NILM and HPV negative, Pap due in 2023.Breas t cancer screening: Reviewed recommenda tions for initiation at age 40 with annual screening. Discussed SBE. Last mammogram 06/07/20 [id number] onoscopy: UTDVulvova ginitis: routine nuswab, treat as neededCont raception: currently on Bilsovi, switching to Slynd.Diet /exercise: Counseled regarding importance of physical activity, healthy diet and appropriat e calcium intake. Screening for malignant neoplasm of breast 436086542 Z12.31 Screening mammogram ordered in clinic today. Counseled on importance of annual breast cancer screening. FHx not significan t for breast cancer Uterine leiomyoma 697150 05 D25.9 Last Mar 2019 with enlarged uterus with multiple fibroids present. She had hysterosco pic D&C Feb 2019 with benign findings. Prescribed Slynd 4mg QD for AUB secondary to fibroids. Pt to start taking this and stop Bilsovi. Educated patient on Slynd and its common side effects. TVUS ordered to reassess fibroids. RTC in 3 months. Essential hypertension 47839046 I10 BP elevated on two separate occasions [...] voiced understand ing. Generalize d anxiety disorder 49453890 F41.1 Worsening anxiety with panic attacks. Takes buspirone irregularl y per PCP. Counseled patient on proper usage of Buspirone. Counseled pt that behavioral therapy can be very beneficial for anxiety. Provided pt support and referral options. Educated pt to follow up with PCP regarding anxiety as well. [id number] CHERY MORALES ([employer]) [address] [place] [phone] 12/22/2021 14:27:19 12/28/2021 11:45:43 Contraception care management 925836988 Z30.9 Pt has been on COCs per Dr. Zavala, tolerating well. Requesting refill today. Candidal vulvovaginitis 28549565 B37.9 Pt reporting pruritic rash from wearing pads. Declined PE today. Suspect candidal infection. Rx topical nystatin and Diflucan. Advised to keep area clean and dry. RTC if symptoms persist. Anxiety 63715784 F41.9 Takes buspirone for anxiety, requesting refill today. Uterine leiomyoma 027326 05 D25.9 TVUS Mar 2019 with enlarged [...] None Recorded Advance Directives Directive N: Payers Insurance Date Sequence Insurance Name Policy Number Policy Marie Covered Member ID Marie Member ID Guarantor Name 12/22/2022 1 [facility] [id number] Gabrielle Whitney [id number] Gabrielle Whitney Notes Date Note Type Note [...] [employer] has fibroids Jin Zavala [place], [place] - [place] 03/16/2019 18:37:31 08/05/2019 text/html 48 y/o fema le presenting for AUB. Patient has been taking NE 5mg and continues to have menses 6-8 days. She reports vaginal dryness as better. She also reports sleep disturbance and mood swings. s/p [facility] [employer] has fibroids CHRISTOPHER Blunt [facility] 08/05/2019 13:00:19 08/22/2020 text/html Annual GYNReport ed [...] [employer] has fibroids Jin navarro, [facility] 08/23/2020 09:58:16 06/28/2021 text/html Annual GYNReport ed bypatient.Menstrual cycle:Irregular cycle intervals; Pt tried discontinuing Bilsovi in October and experienced menorrhagia. Started Bilsovi again and had several months of no bleeding ([id number]). Currently experiencing ~15 days/month of spotting for [...] the medication. PCP is Dr. Tierney in [place], [place]. Pt denies CP, SOB, DANIEL, vision changes, lightheadedness. CHERY MORALES Attn: Accounting,[address] [place], [address], [facility] 06/29/2021 14:57:24 12/22/2021 text/html 51 y/o Amy adhikari, with hx of uterine leiomyoma, who presents to discuss contraception. Pt was prescribed Slynd in June but has never taken it. Pt has been on Blisovi COCs for the past year, prescribed by Dr. Leblanc and recently ran out of refills. Pt is requesting to be on [place] again. LMP 9/30, having spotting now. Patient denies personal history of DVT/PE, uncontrolled HTN, cardiovascular disease, stroke, migraines, or seizures. She denies tobacco use. She also reports pruritic rash on vulva from wearing pads. Gets intermittent yeast infections. Requesting refill on buspirone which she takes for anxiety prn. Pap, Mammogram, and colonoscopy UTD. CHERY MORALES Attn: Accounting,[address] [place], [address], [place] [facility] 12/26/2021 15:05:03 OBGyn Episode Ob Episode Information Episode Created Date Number of Fetuses Patient Bloodtype Patient rh Status Prepregnancy Weight lbs Domestic Partner Domestic Partner Phone Father Name Electrocardiographic Technician Status 10/12/19 15 2 CLOSED Fetus Data First Name Last Name Admitted to NICU Weight (g) Sex Living Outcome Pediatric Complications Fetus ID Race Codes Race Delivery Type 1841.58 352 M Prematur e [id number] Primary 90030 Ryan Calculation Initial Ryan Date Initial Exam [...] Complications Tubal Sterilization Discharge Date Comments 3 [facility] idural 34 Discharge Information Feeding Method Contraceptive Method Maternal HG B and HCT Levels Ob Episode Information Episode Created Date Number of Fetuses Patient Bloodtype Patient rh Status Prepregnancy Weight lbs Domestic Partner Domestic Partner Phone Father Name Electrocardiographic Technician Status 10/12/19 15 2 CLOSED Fetus Data First Name Last Name Admitted to NICU Weight (g) Sex Living Outcome Pediatric Complications Fetus ID Race Codes Race Delivery Type 2068.37 952 M Prematur e 42654 Primary 1842.49 0704 M Prematur e 57918 Ryan Calculation Initial Ryan Date Initial Exam [...] Complications Tubal Sterilization Discharge Date Comments 3 [facility] idural 34 WEBBER Discharge Information Feeding Method Contraceptive Method Maternal HG B and HCT Levels
--- OUTSIDE RECORDS SUMMARY | 2024-09-29 13:53 | XMS_ITS | Clinical Summary ---
Author Organization [facility] Medical Office Building [address] Address [address] [place] [address] Care Team Providers Care Rafter Cutting Machine Operator Name Role Phone Jin Zavala MD Unavailable [phone] Kia Tsai MD Unavailable [phone] Giovanny Tierney MD Primary Care Provider [phone] Allergies No known active allergies Medications cholecalciferol [...] she has an upcoming visit with her can washer and believes that she will also possibly [...] supplements. Assessment & Plan (03/25/2020 3:04 PM DOUBLE END PRODUCTION GRINDER): Asx. Labs ordered. Vitamin D deficiency 06/23/2019 Assessment & Plan (10/19/2020 10:43 AM CDT): Labs ordered, will follow. Intramural and submucous leiomyoma of uterus 12/2019 Overview (05/26/2019): Added automatically from request for surgery [id number] Uterine leiomyoma 03/16/2019 Menorrhagia 02/24/2019 Gastroesophageal reflux disease without esophagi tis 02/16/2019 Assessment & Plan (10/19/2020 10:42 AM CDT): Still admits to having some breakthrough heartburn. Patient encouraged to see elementary school art teacher. Patient was given referral in August of 2020 for Gastroenterology. Patient encouraged to reach out to about office to schedule an appointment. Continue omeprazole. Assessment & Plan (03/25/2020 3:03 PM DOUBLE END PRODUCTION GRINDER): Asx. Continue current therapy. Assessment & Plan (02/16/2019 10:43 AM DOUBLE END PRODUCTION GRINDER): ASx. Cont. Current meds. Patient reports that she has plenty of medications and therefore does not need any refills at this time. Hypertension, essential 02/16/2019 Assessment & Plan (10/19/2020 10:41 AM CDT): Blood pressure at goal of less than 140/90. Continue current management. Assessment & Plan (03/25/2020 3:03 PM DOUBLE END PRODUCTION GRINDER): At goal, continue current meds. Assessment & Plan (02/16/2019 10:42 AM DOUBLE END PRODUCTION GRINDER): Stable. Cont. Current meds. Patient reports that she has plenty of medications and therefore does not need any refills at this time. DUB (dysfunctional uterine bleeding) 02/16/2019 Assessment & Plan (10/19/2020 10:43 AM CDT): Under the care of gynecology, recently started a new oral contraceptive pill. Assessment & Plan (02/16/2019 10:42 AM DOUBLE END PRODUCTION GRINDER): Encouraged patient to keep david appt with HIGHWAY ADMINISTRATIVE ENGINEER on Mar 19, 2019. Irregular heart beats 02/16/2019 Generalized anxiety disorder 02/16/2019 Assessment & Plan (02/16/2019 10:43 AM DOUBLE END PRODUCTION GRINDER): Non-compliant with meds, encouraged compliance. Patient reports [...] recommended. Assessment & Plan (03/25/2020 3:04 PM DOUBLE END PRODUCTION GRINDER): Weight reduction, daily exercise and dietary modifications recommended. Assessment & Plan (02/16/2019 10:41 AM DOUBLE END PRODUCTION GRINDER): Unchanged. Encouraged patient to decrease weight, increase [...] Refused),12/30/2017(Deferred: Patient Refused),03/04/2017(Deferred: Patient Refused) Tdap 02/16/2019 Surgical History Surgery Date Site/Laterality Comments SECTION 03/18/2002 - 03/17/2003 section HEMORRHOID SURGERY 03/18/2010 - 03/17/2011 SECTION ENDOMETRIAL ABLATION ABLATION 02/16/2020 - 03/17/2020 BACK SURGERY Medical History Medical History Date Comments Hypertension Heart palpitations Anemia Headache Acid reflux Family History Medical History Relation Name Comments Heart disease Brother Heart disease Father Heart disease; Heart disease Father's Brother Hypertension Maternal Grandmother Hypertension Mother Hypertension; Hypertension Sister Stroke Sister Stroke; Relation Name Status Comments Brother Father Father's Brother Maternal Grandmother Mother Sister Social History Tobacco Use Types Packs/Day Years [...] on file Legal Sex Female 1:57 AM DOUBLE END PRODUCTION GRINDER Gender Identity Not on file Sexual Orientation Not on file Obstetrics History Para Term AB IAB SAB Ectopic Multiple Livin g Live Births 2 2 1 2 Date Outcome GA Total Labor Labor/2nd/3rd Weight Sex Type Anes PTL Anh A1 A5 Name Clin Term Para Last Filed Vital Signs Vital Sign Reading Time Taken Comments Blood Pressure 142/77 03/15/2023 4:36 AM DOUBLE END PRODUCTION GRINDER Pulse 71 03/15/2023 4:36 AM DOUBLE END PRODUCTION GRINDER Temperature 36.7 C (98.1 F) 03/15/2023 4:19 AM DOUBLE END PRODUCTION GRINDER Respiratory Rate 20 03/15/2023 4:36 AM DOUBLE END PRODUCTION GRINDER Oxygen Saturation 100% 03/15/2023 4:36 AM DOUBLE END PRODUCTION GRINDER Inhaled Oxygen Concentration - - Weight 77.6 kg (171 lb) 03/14/2023 5:42 PM DOUBLE END PRODUCTION GRINDER Height 170.2 cm (5' 7) 03/14/2023 5:42 PM DOUBLE END PRODUCTION GRINDER Body Mass Index 26.78 03/14/2023 5:42 PM DOUBLE END PRODUCTION GRINDER Plan of Treatment Health Maintenance Due Date Last Done Comments Hepatitis B Screening 1987 Pneumococcal vaccine <65 (1 of 2 - PCV) 1988 Zoster Vaccine (1 of 2) 2019 Cervical Cancer Screening 06/28/2019 06/27/2018 Regular Well Visit/Exam 18-64 10/19/2021 10/19/2020, 02/16/2019 Breast Cancer Screening-Mammogram 12/26/2022 12/26/2021, 08/24/2021, 06/07/2020, Additional history exists Depression Screening 04/26/2023 04/26/2022, 04/26/2022, 10/19/2020, Additional history exists Influenza Vaccine (Season Ended) 2024 Colon Cancer Screening-Colonoscopy 12/24/2026 12/24/2016 DTaP/Tdap/Td Vaccine (2 - Td or Tdap) 02/16/2029 02/16/2019 Colon Cancer Screening-CT Colonography Discontinued 12/24/2016 Colon Cancer Screening-DNA Stool Discontinued 12/25/19 17 Colon Cancer Screening-FIT Discontinued 12/24/2016 Colon Cancer Screening-Sigmoidoscopy Discontinued 12/24/2016 Hepatitis C Screening Completed 10/19/2020 Procedures Procedure Name Priority Date/Time Associated Diagnosis [...] last revised on 2019. Testing performed by: [facility], [address] [place] [address], [place]., [address] Blood specimen (specimen) 10/19/2020 10:57 AM CDT 10/19/2020 4:46 PM CDT Sangeeta Pelaez DO LAB MICROBIOLOGY - GENERAL ORDERABLES Final Result [facility] 1 [facility] Department [place] [address] * PAP SMEAR WITH HPV (06/27/2018) Pap smear Normal Historical Provider HEALTH MAINTENANCE Final Result * Colonoscopy (12/24/2016) Anatomical Region Laterality Modality Other Historical Provider ENDOSCOPY PROCEDURES Erlinda l Result from Last 3 Months or Most Recently Relevant to Health Maintenance Insurance [facility] Address: [facility] [address] [place] [address] [facility] CHOICE PLUS [facility] [place]: [place] [address] [facility] CHO[facility] PLUS [facility] Address: [place] [address] Care Teams Rafter Cutting Machine Operator Relationship Specialty Start Date End Date Giovanny Tierney MD PCP - General Family Medicine 01/23/21 Jin Zavala MD Referring Physician Obstetrics and Gynecology 04/29/19 Kia Tsai MD Consulting Physician Gastroenterology 03/22/20
--- OUTSIDE RECORDS SUMMARY | 2024-09-29 13:53 | XMS_ITS | Clinical Summary ---
Author Organization [facility] Kacey Centeno Address [address] [place] [address] Care Team Providers Care Tag Press Operator Name Role Phone Giovanny Tierney MD Primary Care Provider [phone] Allergies Active Allergy Reactions Criticality Noted Date Comments Amlodipine Swelling Low 03/21/2023 L.Acid,Gas,Mariam,Rham-B.Ani-Cran Muscle Pain Low 06/2023 Lisinopril Cough Low 03/21/2023 Medications apixaban (Eliquis) 5 mg tabletIndication s:Acute pulmonary embolism, unspecified pulmonary embolism type, unspecified whether acute cor pulmonale present (CMS/HCC) Take 1 Tablet (5 mg) by mouth 2 times daily. 60 Tablet 3 5 Active apixaban (Eliquis) 5 mg tabletIndication s:Acute pulmonary embolism, unspecified pulmonary embolism type, unspecified whether acute cor pulmonale present (CMS/HCC) Take 1 tablet by mouth twice daily 60 Tablet 3 5 09/15/19 25 Discontinu ed(Reorder ) Active Problems No known active problems Encounters Date Type Department Care Team Description 09/25/2024 Telephone [facility] [address] [facility] [address] [address] [address] [facility] [address] [place] [address] Alexandria Chaudhry MD Needs Appointment 09/14/2024 Refill [facility] Oncology and Hematology - [place] [address] [place] [address] Toro Vargas MD Acute pulmonary embolism, unspecified pulmonary embolism type, unspecified whether acute cor pulmonale present (CMS/HCC) 09/01/2024 External Device Data STL ABSTRACTION Provider, Abstract 08/06/2024 External Device Data STL ABSTRACTION Provider, Abstract 08/04/2024 External Device Data STL ABSTRACTION Provider, Abstract 07/21/2024 External Device Data STL ABSTRACTION Provider, Abstract from Last 3 Months Family History Medical History Relation Name Comments Heart Disease Brother 2 Heart Disease Father Relation Name Status Comments Brother 1 Alive Brother 2 Father Mother Sister 1 Alive Sister 2 Alive Son 1 Alive Son 2 Alive Social History Tobacco Use Types Packs/Day Years Used Date Smoking Tobacco: Never Smokeless Tobacco: Never Tobacco Cessation:Counseling Given: Not Answered Alcohol Use Standard Drinks/Week Comments Never 0 (1 standard drink = 0.6 oz pur e alcohol) Comments Unknown Sex and Gender Information Value Date Recorded Sex Assigned at Not on file Legal Sex Female 8:52 AM MOTORCYCLE ASSEMBLER Gender Identity Not on file Sexual Orientation Not on file Last Filed Vital Signs Vital Sign Reading Time Taken Comments Blood Pressure 130/86 04/10/2024 9:47 AM MOTORCYCLE ASSEMBLER Pulse 78 04/10/2024 9:45 AM MOTORCYCLE ASSEMBLER Temperature 36.8 C (98.2 F) 04/10/2024 9:45 AM MOTORCYCLE ASSEMBLER Respiratory Rate 16 04/10/2024 9:45 AM MOTORCYCLE ASSEMBLER Oxygen Saturation 96% 04/10/2024 9:45 AM MOTORCYCLE ASSEMBLER Inhaled Oxygen Concentration - - Weight 73.5 kg (162 lb) 04/10/2024 9:45 AM MOTORCYCLE ASSEMBLER Height 170.2 cm (5' 7) 03/21/2023 1:28 PM MOTORCYCLE ASSEMBLER Body Mass Index 25.37 03/21/2023 1:28 PM MOTORCYCLE ASSEMBLER Plan of Treatment Upcoming Encounters Date Type Department Care Team (Late st Contact Info) Description 10/02/2024 10:00 AM CDT Office Visit [facility] Oncology and Hematology - [place] [address] [place] [address] Toro Vargas MD [address] [facility] [address] [place] [address] 11/10/2024 1:30 PM CDT Initial consult [facility] Heart and Vascular Surgery [address] [facility] [address] [address] [facility] [address] [place] [address] [place] [address] [address] [facility] [address] [place] [address] Health Maintenance Due Date Last Done Comments Pre-Diabetes and Diabetes Screening 1969 HEPATITIS B VACCINES (1 of 3 - 19+ 3-dose series) 1988 HPV/Cotest (21-29) 1990 CERVICAL CANCER SCREENING 1999 HPV/Cotest (30-65) 1999 PAP SMEAR 1999 FIT-DNA Q 3 years 2014 FIT/FOBT Q 1 year 2014 Flex Sig/CT Colonography Q 5 years 2014 ZOSTER VACCINE (1 of 2) 2019 BREAST CANCER SCREENING 08/24/2022 08/25/19 22, 08/24/2021, 06/07/2020, Additional history exists Preventative Visit- Commercial 03/18/2024 0 10/19/2020, 02/16/2019, 06/26/2018, Additional history exists INFLUENZA VACCINE (#1) 2024 COLORECTAL SCREENING 12/24/2026 12/24/2016, 03/17/20 09 Colorectal Cancer Screening 12/24/2026 DTAP/TDAP/TD VACCINES (2 - T d or Tdap) 02/16/2029 02/16/2019 Insurance [facility] [id number] RX EXPRESS SCRIP[employer] PL[employer] (INTERNAL) [facility] Care Teams Tag Press Operator Relationship Specialty Start Date End Date Giovanny Tierney MD [address] [place] [address] PCP - General Family Practice 03/21/23
--- OUTSIDE RECORDS SUMMARY | 2024-09-29 13:53 | XMS_ITS | Clinical Summary ---
Author Organization [facility] Address [address] [place] [address] Care Team Providers Care Piano Stringer Name Role Phone Giovanny Tierney MD Primary Care Provider [phone] Source Comments [facility],non-owned Affiliates and Associated Physician Practices is amultiple site organization consisting of ambulatory clinics and hospital sitesin [place], [place], [place] and [place]. This disclosure is being madepursuant to the Care Everywhere program and may not contain all information available regarding this patient. Last updated 17.[facility] Social History Tobacco Use Types Packs/Day Years Used Date Smoking Tobacco: Never Assessed Comments Unknown Sex and Gender Information Value Date Recorded Sex Assigned at Not on file Legal Sex Female 9:03 AM WARRANTY CLERK Gender Identity Female 05/18/2022 11:26 AM WARRANTY CLERK Sexual Orientation Not on file Plan of Treatment Health Maintenance Due Date Last Done Comments COLOGUARD (AGES 45-75) - COL ON CA SCREENING 1969 CT COLONOGRAPHY - COLON CA SCREENING 1969 FIT - COLON CA SCREENING 1969 FLEX SIG - COLON CA SCREENING 1969 LIPID TESTING 1969 MAMMOGRAM 1969 HIV SCREENING 1984 HEPATITIS C SCREENING 04/09/1987 DTAP/TDAP/TD VACCINES (1 - Tdap) 1988 HEPATITIS B VACCINE (1 of 3 - 19+ 3-dose series) 1988 PAP SMEAR 1990 PNEUMOCOCCAL VACCINE 50+ (1 of 1 - PCV) 2019 ZOSTER VACCINE (1 of 2) 2019 COVID-19 VACCINE (1 - 2023-2 5 season) 2023 DEPRESSION SCREENING 03/18/2024 INFLUENZA VACCINE (#1) 2024 COLON MONITORING 12/24/2026 12/24/2016 COLONOSCOPY - COLON CA SCREENING 12/24/2026 12/25/19 17 Colorectal Cancer Screening 12/24/2026 HIB VACCINE Aged Out No longer eligi ble based on patient's age to complete this topic HPV VACCINE Aged Out No longer eligi ble based on patient's age to complete this topic MENINGOCOCCAL (Group B) VACC INE SHARED DECISION-MAKING Aged Out No longer eligibl e based on patient's age to complete this topic MENINGOCOCCAL GROUPS A/C/Y/W VACCINE Aged Out No longer eligible b ased on patient's age to complete this topic Insurance [place] [address] CARE SELF PAY NO INSURANCE Member Subscriber Plan / Payer (Ef fective for All Dates) Name:Gabrielle Adams Member ID:Not on file Relation to Subscriber:Not on file Name:CHALO ADAMSJA Subscriber ID:Not on file Address: [address] [place] [id number] Payer ID:Not on file Group ID:Not on file Type:Self Pay Address: [place], [place] SELF PAY NO INSURANCE Member Subscriber Plan / Payer (Ef fective for All Dates) Name:Gabrielle Adams Member ID:Not on file Relation to Subscriber:Not on file Name:GABRIELLE ADAMS Subscriber ID:Not on file Address: [address] [place] [id number] Payer ID:Not on file Group ID:Not on file Type:Self Pay Address: [place], [place] HEALTH CARE SELF PAY NO INSURANCE Member Subscriber Plan / Payer (Ef fective for All Dates) Name:Gabrielle Adams Member ID:Not on file Relation to Subscriber:Not on file Name:GABRIELLE ADAMS Subscriber ID:Not on file Address: [address] [facility] [place] [id number] Payer ID:Not on file Group ID:Not on file Type:Self Pay Address: [place], [place] Care Teams Piano Stringer Relationship Specialty Start Date End Date Giovanny Tierney MD [address] [place] [address] PCP - General Family Medicine 05/18/22
[2024-09-29 13:57] LABS: Hematocrit 43.3 % (37.0-47.0); Hemoglobin 14.1 g/dL (12.0-15.0); Mean Corpuscular HGB Conc 32.6 g/dl (32-36); Mean Corpuscular Hemoglobin 29.6 pg (26-34); Mean Corpuscular Volume 91.0 fl (80-100); Platelet Count Result 224 k/mm3 (150-375); Red Blood Count 4.76 M/mm3 (4.2-5.4); White Blood Count 6.2 K/mm3 (4.5-10.0)
[2024-09-29 16:56] LABS: Anion Gap 9 mmol/L (4-12); Blood Urea Nitrogen 20 mg/dL (7-17); Calcium 9.6 mg/dL (8.4-10.2); Carbon Dioxide 24 mmol/L (22-30); Chloride 102 mmol/L (98-107); Estimated Glomerular Filt Rate 57; Glucose 88 mg/dL (65-110); Potassium 4.3 mmol/L (3.4-5.0); Sodium 135 mmol/L (137-145)
[2024-09-29 17:18] LABS: Iron 102 ug/dL (37-170)
[2024-09-29 17:27] LABS: Percent Iron Saturation 38 % (20-50)
[2024-09-29 17:59] LABS: Ferritin 56.70 ng/mL (11.1-264)
== END 2024-09-29 13:49 | disposition home or self-care (01) ==
PROVIDERS: PCP Family Medicine; Visit Provider Internal Medicine Hematology & Oncology
DX: D64.9 Anemia, unspecified (principal)
CPT/HCPCS: 36415; 80048; 82728; 83540; 83550; 85027

== ENCOUNTER 2024-10-02 11:03 | Outpatient (CLI) | payer OTHER, SELFPAY ==
--- OUTSIDE RECORDS SUMMARY | 2024-10-02 11:06 | XMS_ITS | Encounter Summary ---
Author Organization [facility] [employer] [facility] Address [address] [place] [address] Care Team Providers Care Low Heel Builder Name Role Phone Giovanny Tierney MD Primary Care Provider [phone] Encounter Details Date Type Department Care Team (Late Contact Info) Description 09/30/2024 Orders Only [facility] Oncology and Hematology [place] [address] [place] [address] Toro Vargas MD [address] [place] [address] Social History Tobacco Use Types Packs/Day Years Used Date Smoking Tobacco: Never Smokeless Tobacco: Never Alcohol Use Standard Drinks/Week Comments Never 0 (1 standard drink = 0.6 oz pur e alcohol) Comments Unknown Sex and Gender Information Value Date Recorded Sex Assigned at Not on file Legal Sex Female 8:52 AM HEATING PLANT SUPERINTENDENT Gender Identity Not on file Sexual Orientation Not on file documented as of this encounter Plan of Treatment Upcoming Encounters Date Type Department Care Team (Late Contact Info) Description 10/09/2024 4:00 PM CDT Telephone Check Up [facility] Oncology and Hematology [place] [address] [place] [address] Toro Vargas MD [address] [place] [address] 11/10/2024 1:30 PM CDT Initial consult [facility] Heart and Vascular Surgery [address] [address] [address] [address] [facility] [address] [place] [address] [place] [address] [address] [facility] [address] [place] [address] documented as of this encounter Procedures Procedure Name Priority Date/Time Associated Diagnosis Comments IRON LEVEL Routine 09/29/2024 9:46 AM CDT documented in this encounter Results * IRON LEVEL (09/29/2024 9:46 AM CDT) Blood Toro Vargas MD CHEMISTRY ORDERABLES Final Resu lt documented in this encounter Visit Diagnoses Not on filedocumented in this encounter Care Teams Low Heel Builder Relationship Specialty Start Date End Date Giovanny Tierney MD [address] [place] [address] PCP - General Family Practice 03/21/23 documented as of this encounter
--- OUTSIDE RECORDS SUMMARY | 2024-10-02 11:06 | XMS_ITS | Encounter Summary ---
Author Organization [facility] [employer] [facility] Address [address] [place] [address] Care Team Providers Care Edging Machine Operator Name Role Phone Giovanny Tierney MD Primary Care Provider [phone] Reason for Referral * Radiology Services (Urgent) - Authorized Specialty Diagnoses / Procedures Referred By Contjose t Referred To Contact Diagnoses Acute deep vein thrombosis (DVT) of distal vein of left lower extremity (CMS/HCC) Procedures US VENOUS DOPPLER LEG LEFT Toro Vargas MD [address] [place] [address] Phone: tel: fax: [place] [phone] Referral ID Status Reason Start Date Expiration Date V isits Requested Visits Authorized [id number] Authorized STL CTS 10/02/2024 11/02/2025 1 1 Reason for Visit * Reason Comments Follow Up Encounter Details Date Type Department Care Team (Late st Contact Info) Description 10/02/2024 10:00 AM CDT Office Visit [facility] Oncology and Hematology [address] [place] [address] Toro Vargas MD [address] [place] [address] Hypomagnesemia (Primary Dx); Acute pulmonary embolism, unspecified pulmonary embolism type, unspecified whether acute cor pulmonale present (CMS/HCC); Acute deep vein thrombosis (DVT) of distal vein of left lower extremity (CMS/HCC) Social History Tobacco Use Types Packs/Day Years Used Date Smoking Tobacco: Never Smokeless Tobacco: Never Tobacco Cessation:Counseling Given: Not Answered Alcohol Use Standard Drinks/Week Comments Never 0 (1 standard drink = 0.6 oz pur e alcohol) Comments Unknown Sex and Gender Information Value Date Recorded Sex Assigned at Not on file Legal Sex Female 8:52 AM WATER MANAGER Gender Identity Not on file Sexual Orientation Not on file documented as of this encounter Last Filed Vital Signs Vital Sign Reading Time Taken Comments Blood Pressure 127/92 10/02/2024 10:00 AM CDT Pulse 66 10/02/2024 9:59 AM CDT Temperature 36.7 C (98.1 F) 10/02/2024 9:59 AM CDT Respiratory Rate 16 10/02/2024 9:59 AM CDT Oxygen Saturation 97% 10/02/2024 9:59 AM CDT Inhaled Oxygen Concentration - - Weight 71.5 kg (157 lb 9.6 oz) 10/02/2024 9:59 A M CDT Height - - Body Mass Index 24.68 03/21/2023 1:28 PM WATER MANAGER documented in this encounter Progress Notes * Toro Vargas MD - 10/02/2024 10:58 AM CDT HEMATOLOGY / ONCOLOGY PROGRESS NOTE Patient Identification: Name: Gabrielle Whitney Age: 54 y.o. Sex: female : 1970 DIAGNOSIS Bilateral PE and left lower extremity DVT diagnosed March 08, 2023. Iron deficiency anemia secondary to heavy menstrual bleeding CURRENT TREATMENT Iron 65 mg twice a day with vitamin C 500 mg daily Eliquis 5 mg twice daily TREATMENT HISTORY Complete hysterectomy with bilateral salpingo-oophorectomy done on April 19, 2023. SUBJECTIVE Patient came to the office for follow-up visit. She has been complaining of left lower extremity cramping. Denies any tiredness and fatigue. No bleeding or bruising. No chest pain shortness of breath. No other new complaints. Review of system Constitutional: Patient did not mention fevers, sweats, weight and appetite stable, denies any tiredness and fatigue HEENT: Patient did not mention sinus congestion, hearing or vision problems Respiratory: Patient did not mention cough, dyspnea, wheeze Cardiovascular: Patient did not mention chest pain, exertional chest pressure/discomfort, nausea, syncope, shortness of breath GI: Patient did not mention constipation, diarrhea, dsyphagia, reflux symptoms, vomiting, melena : Patient did not mention dysuria, frequency, incontinence, urgency Integumentary system: no lymphadenopathy, sweats, flushing Musculoskeletal: Patient not mention: myalgia, arthralgia, complain of left lower extremity cramps Neurological: Patient did not mention blurry or disturbed vision, Skin: No lumps, bumps or rashes. 12 point review of system was reviewed Objective: Vital signs in last 24 hours: As per nursing note Exam: General appearance: alert, cooperative, no distress, appears stated age Head: normocephalic, without obvious abnormality, atraumatic Eyes: conjunctivae/corneas clear, EOM's intact Ears: normal external ear canals AU Nose: Nares normal. Septum midline. Mucosa normal. No drainage or sinus tenderness Throat: Lips, mucosa, and tongue normal. Teeth and gums normal Neck: supple, symmetrical, trachea midline. Lungs: clear to auscultation bilaterally Heart: regular rate and rhythm, S1, S2 normal, no murmur, click, rub or gallop Abdomen: soft, non-tender. Bowel sounds normal. No masses, No organomegaly Extremities: extremities normal, atraumatic, mild left lower extremity edema Skin: Skin color, texture, turgor normal. No rashes or lesions Lymph nodes: No lymphadenopathy Neuro: No obvious focal deficit Exam as above PATH LABS Labs from March 27 showed hemoglobin 10.2 iron 69 saturation 20 ferritin 196 B12 382 Labs from June 26 showed WBC 8.3 hemoglobin 12.6 platelet 267,000 iron 141 saturation 45 ferritin 17 vitamin B12 936 Labs from September 22 showed hemoglobin 14.2 B12 797 creatinine 1.1 GFR 52 iron 94 saturation 32 ferritin 31 Labs from January 08 showed creatinine 1.5 GFR 36 BUN 31 hemoglobin 14.3 Labs from April 09 showed hemoglobin 14.6 iron 71 saturation 25 ferritin 35 B12 793 Lab from September 29 showed WBC 6.2 hemoglobin 14.1 platelet 225,000 creatinine 1.0 calcium 9.6 iron 102 saturation 38 ferritin 56 Assessment: Plan: There are no active problems to display for this patient. Provoked hypercoagulable state with left lower extremity DVT and bilateral PE diagnosed February 2023 while she was on control pill. Hypercoagulable workup was not performed due to chronic DVT. Last Doppler studies done in March showed chronic DVT. We will order repeat Doppler studies as patient is going to see vascular surgery for possible thrombectomy. In the meantime we will continue Eliquis 5 mg twice a day. I will send a refill for 90-day supply. We have discussed in detail regarding low-dose Eliquis versus full dose. We decided to continue with the full dose due to persistent chronic DVT. We will also discuss Doppler studies on the phone. Leg cramps. We will order magnesium level today. Phone visit in 1 week to discuss labs. Anemia status post hysterectomy. Resolved. Iron B12 level came back normal. 10/02/2024 Toro Vargas MD documented in this encounter Plan of Treatment Upcoming Encounters Date Type Department Care Team (Late st Contact Info) Description 10/09/2024 4:00 PM CDT Telephone Check Up [facility] Oncology and Hematology - [place] [address] [facility] [address] [place] [id number] Toro Vargas MD [address] [facility] [address] [place] [address] 11/10/2024 1:30 PM CDT Initial consult [facility] Heart and Vascular Surgery [address] [facility] [address] [address] [place] [address] [place] [address] [address] [facility] [address] [place] [address] Scheduled Orders Name Type Priority Associated Diagnoses Orde r Schedule MAGNESIUM LEVEL Lab Stat Hypomagnesemia Expected: 10/02/2024, Expires: 10/02/2025 US VENOUS DOPPLER LEG LEFT Imaging Stat Acute deep vein thrombosis (DVT) of distal vein of left lower extremity (CMS/HCC) Expected: 10/02/2024, Expires: 10/02/2025 documented as of this encounter Visit Diagnoses Diagnosis Hypomagnesemia- Primary Disorders of magnesium metabolism Acute pulmonary embolism, unspecified pulmonary embolism type, unspecified whether acute cor pulmonale present (CMS/HCC) Acute deep vein thrombosis (DVT) of distal vein of left lower extremity (CMS/HCC) documented in this encounter Care Teams Edging Machine Operator Relationship Specialty Start Date End Date Giovanny Tierney MD [address] [place] [address] PCP - General Family Practice 03/21/23 documented as of this encounter
--- OUTSIDE RECORDS SUMMARY | 2024-10-02 11:06 | XMS_ITS | Clinical Summary ---
Author Organization [facility] Medical Office Building B Address [address] [place] [address] Care Team Providers Care Cylinder Block Mechanic Name Role Phone Jin Zavala MD Unavailable [phone] Kia Tsai MD Unavailable Giovanny Tierney MD Primary Care Provider Allergies No known active allergies Medications cholecalciferol [...] she has an upcoming visit with her physical plant employee and believes that she will also possibly [...] supplements. Assessment & Plan (03/25/2020 3:04 PM CDL TRUCK DRIVER): Asx. Labs ordered. Vitamin D deficiency 06/23/2019 Assessment & Plan (10/19/2020 10:43 AM CDT): Labs ordered, will follow. Intramural and submucous leiomyoma of uterus 12/2019 Overview (05/26/2019): Added automatically from request for surgery [id number] Uterine leiomyoma 03/16/2019 Menorrhagia 02/24/2019 Gastroesophageal reflux disease without esophagi tis 02/16/2019 Assessment & Plan (10/19/2020 10:42 AM CDT): Still admits to having some breakthrough heartburn. Patient encouraged to see manager country. Patient was given referral in August of 2020 for Gastroenterology. Patient encouraged to reach out to about office to schedule an appointment. Continue omeprazole. Assessment & Plan (03/25/2020 3:03 PM CDL TRUCK DRIVER): Asx. Continue current therapy. Assessment & Plan (02/16/2019 10:43 AM CDL TRUCK DRIVER): ASx. Cont. Current meds. Patient reports that she has plenty of medications and therefore does not need any refills at this time. Hypertension, essential 02/16/2019 Assessment & Plan (10/19/2020 10:41 AM CDT): Blood pressure at goal of less than 140/90. Continue current management. Assessment & Plan (03/25/2020 3:03 PM CDL TRUCK DRIVER): At goal, continue current meds. Assessment & Plan (02/16/2019 10:42 AM CDL TRUCK DRIVER): Stable. Cont. Current meds. Patient reports that she has plenty of medications and therefore does not need any refills at this time. DUB (dysfunctional uterine bleeding) 02/16/2019 Assessment & Plan (10/19/2020 10:43 AM CDT): Under the care of gynecology, recently started a new oral contraceptive pill. Assessment & Plan (02/16/2019 10:42 AM CDL TRUCK DRIVER): Encouraged patient to keep david appt with STOCK WETTER on Mar 19, 2019. Irregular heart beats 02/16/2019 Generalized anxiety disorder 02/16/2019 Assessment & Plan (02/16/2019 10:43 AM CDL TRUCK DRIVER): Non-compliant with meds, encouraged compliance. Patient reports [...] recommended. Assessment & Plan (03/25/2020 3:04 PM CDL TRUCK DRIVER): Weight reduction, daily exercise and dietary modifications recommended. Assessment & Plan (02/16/2019 10:41 AM CDL TRUCK DRIVER): Unchanged. Encouraged patient to decrease weight, increase [...] on file Legal Sex Female 1:57 AM CDL TRUCK DRIVER Gender Identity Not on file Sexual Orientation Not on file Obstetrics History Para Term AB IAB SAB Ectopic Multiple Livin g Live Births 2 2 1 2 Date Outcome GA Total Labor Labor/2nd/3rd Weight Sex Type Anes PTL Anh A1 A5 Name Clin Term Para Last Filed Vital Signs Vital Sign Reading Time Taken Comments Blood Pressure 142/77 03/15/2023 4:36 AM CDL TRUCK DRIVER Pulse 71 03/15/2023 4:36 AM CDL TRUCK DRIVER Temperature 36.7 C (98.1 F) 03/15/2023 4:19 AM CDL TRUCK DRIVER Respiratory Rate 20 03/15/2023 4:36 AM CDL TRUCK DRIVER Oxygen Saturation 100% 03/15/2023 4:36 AM CDL TRUCK DRIVER Inhaled Oxygen Concentration - - Weight 77.6 kg (171 lb) 03/14/2023 5:42 PM CDL TRUCK DRIVER Height 170.2 cm (5' 7) 03/14/2023 5:42 PM CDL TRUCK DRIVER Body Mass Index 26.78 03/14/2023 5:42 PM CDL TRUCK DRIVER Plan of Treatment Health Maintenance Due Date [...] last revised on 2019. Testing performed by: [facility], [address] [place] [address]., [id number] Blood specimen (specimen) 10/19/2020 10:57 AM CDT 10/19/2020 4:46 PM CDT Sangeeta Pelaez DO LAB MICROBIOLOGY - GENERAL ORDERABLES Final Result DAMIAN DECKER ([place]) 1 [facility] Department [place] [address] * PAP SMEAR WITH HPV (06/27/2018) Pap smear Normal Historical Provider HEALTH MAINTENANCE Final Result * Colonoscopy (12/24/2016) Anatomical Region Laterality Modality Other Historical Provider ENDOSCOPY PROCEDURES Erlinda l Result from Last 3 Months or Most Recently Relevant to Health Maintenance Insurance [employer] PLUS [employer] PLUS Care Teams Cylinder Block Mechanic Relationship Specialty Start Date End Date Giovanny Tierney MD PCP - General Family Medicine 01/23/21 Jin Zavala MD Referring Physician Obstetrics and Gynecology 04/29/19 Kia Tsai MD Consulting Physician Gastroenterology 03/22/20
--- OUTSIDE RECORDS SUMMARY | 2024-10-02 11:06 | XMS_ITS | Encounter Summary ---
Author Organization [facility] Address [address] [place] [address] Care Team Providers Care Animal Nurse Name Role Phone Giovanny Tierney MD Primary Care Provider [phone] Encounter Details Date Type Department Care Team (Late st Contact Info) Description 09/30/2024 External Device Data STL ABSTRACTION Provider, Abstract NO ADDRESS ON FILE Social History Tobacco Use Types Packs/Day Years Used Date Smoking Tobacco: Never Smokeless Tobacco: Never Alcohol Use Standard Drinks/Week Comments Never 0 (1 standard drink = 0.6 oz pur e alcohol) Comments Unknown Sex and Gender Information Value Date Recorded Sex Assigned at Not on file Legal Sex Female 8:52 AM WIG DRESSER Gender Identity Not on file Sexual Orientation Not on file documented as of this encounter Plan of Treatment Upcoming Encounters Date Type Department Care Team (Late st Contact Info) Description 10/09/2024 4:00 PM CDT Telephone Check Up [facility] Oncology and Hematology - [place] [address] [facility] [address] [place] [address] Toro Vargas MD [address] [facility] [address] [place] [address] 11/10/2024 1:30 PM CDT Initial consult [facility] Heart and Vascular Surgery [address] [facility] [address] [address] [facility] [address] [place] [address] [place] [address] [address] [facility] [address] [place] [address] documented as of this encounter Visit Diagnoses Not on filedocumented in this encounter Care Teams Animal Nurse Relationship Specialty Start Date End Date Giovanny Tierney MD [address] [place] [address] PCP - General Family Practice 03/21/23 documented as of this encounter
--- OUTSIDE RECORDS SUMMARY | 2024-10-02 11:06 | XMS_ITS | Referral Summary ---
Author Organization [facility] Medical [facility] Building B Address [address] [place] [address] Care Team Providers Care Juice Standardizer Name Role Phone Jin Zavala MD Unavailable [phone] Kia Tsai MD Unavailable Giovanny Tierney MD [...] she has an upcoming visit with her aerophysics engineer and believes that she will also possibly [...] supplements. Assessment & Plan (03/25/2020 3:04 PM INSTRUCTIONAL WRITER): Asx. Labs ordered. Vitamin D deficiency 06/23/2019 Assessment & Plan (10/19/2020 10:43 AM CDT): Labs ordered, will follow. Intramural and submucous leiomyoma of uterus 12/2019 Overview (05/26/2019): Added automatically from request for surgery [id number] Uterine leiomyoma 03/16/2019 Menorrhagia 02/24/2019 Gastroesophageal reflux disease without esophagi tis 02/16/2019 Assessment & Plan (10/19/2020 10:42 AM CDT): Still admits to having some breakthrough heartburn. Patient encouraged to see plug maker. Patient was given referral in August of 2020 for Gastroenterology. Patient encouraged to reach out to about office to schedule an appointment. Continue omeprazole. Assessment & Plan (03/25/2020 3:03 PM INSTRUCTIONAL WRITER): Asx. Continue current therapy. Assessment & Plan (02/16/2019 10:43 AM INSTRUCTIONAL WRITER): ASx. Cont. Current meds. Patient reports that she has plenty of medications and therefore does not need any refills at this time. Hypertension, essential 02/16/2019 Assessment & Plan (10/19/2020 10:41 AM CDT): Blood pressure at goal of less than 140/90. Continue current management. Assessment & Plan (03/25/2020 3:03 PM INSTRUCTIONAL WRITER): At goal, continue current meds. Assessment & Plan (02/16/2019 10:42 AM INSTRUCTIONAL WRITER): Stable. Cont. Current meds. Patient reports that she has plenty of medications and therefore does not need any refills at this time. DUB (dysfunctional uterine bleeding) 02/16/2019 Assessment & Plan (10/19/2020 10:43 AM CDT): Under the care of gynecology, recently started a new oral contraceptive pill. Assessment & Plan (02/16/2019 10:42 AM INSTRUCTIONAL WRITER): Encouraged patient to keep david appt with ACCOUNT FINANCIAL MANAGER on Mar 19, 2019. Irregular heart beats 02/16/2019 Generalized anxiety disorder 02/16/2019 Assessment & Plan (02/16/2019 10:43 AM INSTRUCTIONAL WRITER): Non-compliant with meds, encouraged compliance. Patient reports [...] recommended. Assessment & Plan (03/25/2020 3:04 PM INSTRUCTIONAL WRITER): Weight reduction, daily exercise and dietary modifications recommended. Assessment & Plan (02/16/2019 10:41 AM INSTRUCTIONAL WRITER): Unchanged. Encouraged patient to decrease weight, increase [...] on file Legal Sex Female 1:57 AM INSTRUCTIONAL WRITER Gender Identity Not on file Sexual Orientation Not on file Last Filed Vital Signs Vital Sign Reading Time Taken Comments Blood Pressure 142/77 03/15/2023 4:36 AM INSTRUCTIONAL WRITER Pulse 71 03/15/2023 4:36 AM INSTRUCTIONAL WRITER Temperature 36.7 C (98.1 F) 03/15/2023 4:19 AM INSTRUCTIONAL WRITER Respiratory Rate 20 03/15/2023 4:36 AM INSTRUCTIONAL WRITER Oxygen Saturation 100% 03/15/2023 4:36 AM INSTRUCTIONAL WRITER Inhaled Oxygen Concentration - - Weight 77.6 kg (171 lb) 03/14/2023 5:42 PM INSTRUCTIONAL WRITER Height 170.2 cm (5' 7) 03/14/2023 5:42 PM INSTRUCTIONAL WRITER Body Mass Index 26.78 03/14/2023 5:42 PM INSTRUCTIONAL WRITER Plan of Treatment Not on file Procedures [...] last revised on 2019. Testing performed by: [facility], [address] [place] [address]., [address] Blood specimen (specimen) 10/19/2020 10:57 AM CDT 10/19/2020 4:46 PM CDT Sangeeta Pelaez DO LAB MICROBIOLOGY - GENERAL ORDERABLES Final Result DAMIAN DECKER ([place]) 1 [facility] Department [place] [address] * PAP SMEAR WITH HPV (06/27/2018) Pap smear Normal Historical Provider HEALTH MAINTENANCE Final Result * Colonoscopy (12/24/2016) Anatomical Region Laterality Modality Other us Historical Provider ENDOSCOPY PROCEDURES Erlinda l Result from Last 3 Months or Most Recently Relevant to Health Maintenance Insurance [facility] CHOICE PLUS CHOICE PLUS [facility] [address] CHOICE PLUS Care Teams Juice Standardizer Relationship Specialty Start Date End Date Giovanny Tierney MD PCP - General Family Medicine 01/23/21 Jin Zavala MD Referring Physician Obstetrics and Gynecology 04/29/19 Kia Tsai MD Consulting Physician Gastroenterology 03/22/20
--- OUTSIDE RECORDS SUMMARY | 2024-10-02 11:06 | XMS_ITS | Clinical Summary ---
Author Organization [facility] Address [address] [place] [address] Care Team Providers Care Senior Capital Markets Specialist Name Role Phone Giovanny Tierney MD Primary Care Provider [phone] [facility],non-owned Affiliates and Associated Physician Practices is amultiple site organization consisting of ambulatory clinics and hospital sitesin [place], [place] and [place]. This disclosure is being madepursuant to the Care Everywhere program and may not contain all information available regarding this patient. Last updated 17.[facility] Social History Tobacco Use Types Packs/Day Years Used Date Smoking Tobacco: Never Assessed Comments Unknown Sex and Gender Information Value Date Recorded Sex Assigned at Not on file Legal Sex Female 9:03 AM FURNITURE INSPECTOR Gender Identity Female 05/18/2022 11:26 AM FURNITURE INSPECTOR Sexual Orientation Not on file Plan of [...] patient's age to complete this topic Insurance [place] [address] [address] CARE SELF PAY NO INSURANCE Member Subscriber Plan / Payer (Ef fective for All Dates) Name:Gabrielle Adams Member ID:Not on file Relation to Subscriber:Not on file Name:CHALO ADAMSJA Subscriber ID:Not on file Address: [address] [place] [id number] Payer ID:Not on file Group ID:Not on file Type:Self Pay Address: [place], [place] SELF PAY NO INSURANCE Member Subscriber Plan / Payer (Ef fective for All Dates) Name:Gabrielle Adams Member ID:Not on file Relation to Subscriber:Not on file Name:GABRIELLE ADAMS Subscriber ID:Not on file Address: [address] [place] [id number] Payer ID:Not on file Group ID:Not on file Type:Self Pay Address: [place], [place] HEALTH CARE SELF PAY NO INSURANCE Member Subscriber Plan / Payer (Ef fective for All Dates) Name:Gabrielle Adams Member ID:Not on file Relation to Subscriber:Not on file Name:GABRIELLE ADAMS Subscriber ID:Not on file Address: [address] [facility] [place] [id number] Payer ID:Not on file Group ID:Not on file Type:Self Pay Address: [place], [place] Care Teams Senior Capital Markets Specialist Relationship Specialty Start Date End Date Giovanny Tierney MD [address] [place] [address] PCP - General Family Medicine 05/18/22
--- OUTSIDE RECORDS SUMMARY | 2024-10-02 11:06 | XMS_ITS | Encounter Summary ---
Author Organization [facility] [employer] [facility] Address [address] [place] [address] Care Team Providers Care Scientist Propagator Name Role Phone Giovanny Tierney MD Primary Care Provider [phone] Encounter Details Date Type Department Care Team (Late Contact Info) Description 09/29/2024 Orders Only [facility] Oncology and Hematology [place] [address] [place] [address] Toro Vargas MD [address] [place] [address] Social History Tobacco Use Types Packs/Day Years Used Date Smoking Tobacco: Never Smokeless Tobacco: Never Alcohol Use Standard Drinks/Week Comments Never 0 (1 standard drink = 0.6 oz pur e alcohol) Comments Unknown Sex and Gender Information Value Date Recorded Sex Assigned at Not on file Legal Sex Female 8:52 AM INSPECTOR PRINTED CIRCUIT BOARDS Gender Identity Not on file Sexual Orientation Not on file documented as of this encounter Plan of Treatment Upcoming Encounters Date Type Department Care Team (Late Contact Info) Description 10/09/2024 4:00 PM CDT Telephone Check Up [facility] Oncology and Hematology [place] [address] [place] [address] Toro Vargas MD [address] [place] [address] 11/10/2024 1:30 PM CDT Initial consult [facility] Heart and Vascular Surgery [address] [address] [address] [facility] [address] [place] [address] [place] [address] [address] [facility] [address] [place] [address] documented as of this encounter Procedures Procedure Name Priority Date/Time Associated Diagnosis Comments CBC WITH DIFFERENTIAL Routine 09/29/2024 4:18 PM CDT documented in this encounter Results * CBC WITH DIFFERENTIAL (09/29/2024 4:18 PM CDT) Blood us Toro Vargas MD HEMATOLOGY ORDERABLES Final Res ult documented in this encounter Visit Diagnoses Not on filedocumented in this encounter Care Teams Scientist Propagator Relationship Specialty Start Date End Date Giovanny Tierney MD [address] [place] [address] PCP - General Family Practice 03/21/23 documented as of this encounter
--- OUTSIDE RECORDS SUMMARY | 2024-10-02 11:06 | XMS_ITS | Data Portability ---
Author Organization CHRISTOPHER Aimee MATHEW Address [address] [place] [address] Care Team Providers Care Lan/Wan Engineer Name Role Phone ELLYN PERKINS Exchange Underwriting Consultant [phone] Assessment Encounter Date Assessment Date Assessment LastModified [...] DO Not Attach Compendium, Do Not Delete/merge, [id number] 15:07:21 bacteria l vaginosi s score, ANAMARIA+prob e, vaginal fluid (OBS) 2021 022 RAYMUNDO [facility], [address], [place], [address], 03:06:27 urinalys is, dipstick 2020 021 holly In-Office Order, Internal Use Only DO Not Attach Compendium DO Not Attach Compendium, Do Not Delete/merge, [id number] 18:02:59 H pylori urea breath test, co2 infrared 2020 021 [email or web address] [facility], [address], [place], [address], 1 14:46:59 Referral psychiat rist referral 2021 RAYMUNDO [facility] (), [address] [place], [address], 2 19:31:42 counseli ng referral 2021 RAYMUNDO Britt (), [address] [place], [address], 2 19:31:33 Procedures None recorded . Surgeries None recorded . Imaging MAMMO, screenin g, bilatera l 2021 RAYMUNDODEBO Balderrama (Radiology), 1 [facility] [place], [address], 2 10:02:36 US, pelvis, transabd ominal + transvag inal 2021 RAYMUNDODEBO Balderrama (Radiology), 1 [facility] [place], [address], 2 17:23:28 US, pelvis, transabd ominal + transvag inal 2018 019 RAYMUNDODEBO Balderrama (Radiology), 1 [facility] [place], [address], 0 11:16:35 Medication Orders nystatin 100,000 unit/gra m topical cream 2021 [facility], [address] [place] [address], [place], [address], 2 15:28:45 fluconaz ole 150 mg tablet 2021 [facility], [facility] [place], [address], 2 15:28:45 buspiron e 5 mg tablet 2021 RAYMUNDO [facility], [facility] [place], [address], 15:28:47 Junel Fe 24 1 mg-20 mcg (24)/75 mg (4) tablet 2021 [facility], [facility] [place], [address], 14:56:29 Slynd 4 mg (28) tablet 2021 [facility], [address] [place] [address], [address], 14:54:16 omeprazo le 20 mg capsule, delayed release 2020 [facility], [address] [place] [address], [address], 12:20:14 Oriahnn 300-1-0. 5 mg(AM)/3 00 mg(PM) capsules 2020 [facility], [address] [place] [address], [address], 12:25:12 multivit franks tablet 2019 [facility], [address], [place], [place], [id number], 10:37:47 Calcium with Vitamin D 600 mg-10 mcg (400 unit) tablet 2019 [facility] #85004, [address], [place], [place], [id number], 10:37:25 norethin drone acetate 5 mg tablet 2019 020 [facility] #03834, [address], [place], [place], [id number], 12:20:00 norethin drone acetate 5 mg tablet 2018 019 [facility] #99504, [address], [place], [place], [id number], 12:20:00 norethin drone acetate 5 mg tablet 2018 019 [facility], [address] [place] [address], [address], 12:20:00 Patient TargetsNo targets recorded. Patient Instructions Encounter Date Encounter Id Patient Instructions Last Modified By Organization Details Last Modified Time 03/16/2019 [id number] uterine fibroids : care instructions mwasserman Not available 03/16/2019 16:30:29 08/05/2019 [id number] heavy menstrual periods: care instructions mwasserman Not available 08/05/2019 13:00:16 uterine fibroids : care instructions mwasserman Not available 08/05/2019 10:53:46 08/22/2020 [id number] learning about menopause mwasserman Not available 08/22/2020 18:02:59 gastroesophageal reflux disease (GERD): care instructions mwasserman Not available 08/22/2020 11:46:19 H. pylori bacter ial infection: care instructions mwasserman Not available 08/22/2020 11:46:19 uterine fibroids : care instructions mwasserman Not available 08/22/2020 18:02:59 06/28/2021 [id number] well visit, wome n 50 to 65: care instructions Not available 06/28/2021 12:49:19 learning about breast cancer screening Not available 06/28/2021 12:49:19 Reason for Referral Psychiatrist Referral for Ge neralized anxiety disorder Referring Physician: Ellyn Perkins, It Quality Assurance Analyst, Encounter Date: 06/28/2021 Counseling Referral for Gene ralized anxiety disorder Referring Physician: Ellyn Perkins, It Quality Assurance Analyst, Encounter Date: 06/28/2021 Results Created Date Observation Date Name Description Value Unit Range Abnormal Flag Note LastModifiedBy Organization Detail LastModifiedTime 08/23/19 21 08/22/2020 urina lysis , dipst ick Leukocytes Negati ve Not Available In-Office Order Internal Use Only DO Not Attach Compendium DO Not Attach Compendium, Do Not Delete/merge, [facility] 08/22/2020 10:49:56 08/23/19 21 08/22/2020 urina lysis , dipst ick Nitrite negati ve Not Available In-Office Order Internal Use Only DO Not Attach Compendium DO Not Attach Compendium, Do Not Delete/merge, [facility] 08/22/2020 10:49:56 08/23/1908/22/2020 urina lysis , dipst ick Urobilinogen .2 Not Available In-Of fice Order Internal Use Only DO Not Attach Compendium DO Not Attach Compendium, Do Not Delete/merge, [facility] 08/22/2020 10:49:56 08/23/19 21 08/22/2020 urina lysis , dipst ick Protein Negati ve Not Available In-Office Order Internal Use Only DO Not Attach Compendium DO Not Attach Compendium, Do Not Delete/merge, [facility] 08/22/2020 10:49:56 08/23/1908/22/2020 urina lysis , dipst ick pH 6.0 Not Available In-Office Order Internal Use Only DO Not Attach Compendium DO Not Attach Compendium, Do Not Delete/merge, [facility] 08/22/2020 10:49:56 08/23/1908/22/2020 urina lysis , dipst ick Blood Large Not Available In-Office Order Internal Use Only DO Not Attach Compendium DO Not Attach Compendium, Do Not Delete/merge, [facility] 08/22/2020 10:49:56 08/23/1908/22/2020 urina lysis , dipst ick Specific [place] 1.025 Not Available In-Off ice Order Internal Use Only DO Not Attach Compendium DO Not Attach Compendium, Do Not Delete/merge, [facility] 08/22/2020 10:49:56 08/23/1908/22/2020 urina lysis , dipst ick Ketone Negati ve Not Available In-Office Order Internal Use Only DO Not Attach Compendium DO Not Attach Compendium, Do Not Delete/merge, [facility] 08/22/2020 10:49:56 08/23/19 21 08/22/2020 urina lysis , dipst ick Bilirubin Negati ve Not Available In-Office Order Internal Use Only DO Not Attach Compendium DO Not Attach Compendium, Do Not Delete/merge, [facility] 08/22/2020 10:49:56 08/23/19 21 08/22/2020 urina lysis , dipst ick Glucose Negati ve Not Available In-Office Order Internal Use Only DO Not Attach Compendium DO Not Attach Compendium, Do Not Delete/merge, [facility] 08/22/2020 10:49:56 08/23/1908/23/2020 H pylor i urea breat h test, co2 infra red H pylori breath test Negati ve negati ve Not Available [facility] ([facility]) [address] [place], [address], 08/23/2020 16:11:29 06/29/19 22 07/02/2021 NUSWA B VG+, HSV atopobium vaginae LOW - 0 score Not Available [facility] ([facility]) [address] [place], [address], 07/03/2021 03:06:27 06/29/19 22 07/02/2021 NUSWA B VG+, HSV bvab 2 LOW - 0 score Not Available [facility] ([facility]) [address] [place], [address], 07/03/2021 03:06:27 06/29/19 22 07/02/2021 NUSWA B [...] Drug Admin istra tion. Not Available [facility] ([facility]) [address] [place], [address], 07/03/2021 03:06:27 06/29/19 22 07/02/2021 NUA B VG+, HSV edward albicans, ANAMARIA NEGATI VE negati ve Not Available [facility] ([facility]) [address] [place], [address], 07/03/2021 03:06:27 06/29/19 22 07/02/2021 NUSWA B VG+, HSV edward glabrata, ANAMARIA NEGATI VE negati ve Not Available [facility] ([facility]) [address] [place], [address], 07/03/2021 03:06:27 06/29/19 22 07/02/2021 NUSWA B VG+, HSV trich vag by ANAMARIA NEGATI VE negati ve Not Available [facility] ([facility]) [address] [place], [address], 07/03/2021 03:06:27 06/29/19 22 07/02/2021 NUSWA B VG+, HSV chlamydia trachomatis, ANAMARIA NEGATI VE negati ve Not Available [facility] ([facility]) [address] [place], [address], 07/03/2021 03:06:27 06/29/19 22 07/02/2021 NUSWA B VG+, HSV neisseria gonorrhoeae, ANAMARIA NEGATI VE negati ve Not Available [facility] ([facility]) [address] [facility], [place], [address], 07/03/2021 03:06:27 06/29/19 22 07/03/2021 NUSWA B VG+, HSV hsv 1 ANAMARIA NEGATI VE negati ve Not Available [facility] ([facility]) [address] [facility], [place], [address], 07/03/2021 03:06:27 06/29/19 22 07/03/2021 NUA B VG+, HSV hsv 2 ANAMARIA NEGATI VE negati ve Not Available [facility] ([facility]) [address] [facility], [place], [address], 07/03/2021 03:06:27 12/23/19 22 12/22/2021 pregn ambika test, urine HCG negati ve Not Available In-Office Order Internal Use Only DO Not Attach Compendium DO Not Attach Compendium, Do Not Delete/merge, [id number] 12/22/2021 14:44:53 03/23/19 20 03/19/2019 US, pelvi s, trans abdom inal + trans vagin al No observ ation record ed. [facility] ([facility]iology) [address] [place] [address] [place], [address], 08/05/2019 10:50:56 06/09/19 21 06/07/2020 MAMMO , scree angelito, bilat eral No observ ation record ed. [address] [place], [address], 08/23/2020 09:55:02 08/29/19 22 08/24/2021 US, pelvi s, trans abdom inal + trans vagin al No observ ation record ed. [facility] (Radiology) 1 [facility] [place], [address], 12/26/2021 14:56:30 12/27/19 22 08/24/2021 MAMMO , elvin eaton, bilat josesitol No observ ation record ed. [facility] 1 [facility] [place], [address], 01/02/2022 14:41:37 Result Notes None recorded. 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 hysterect tali, UFE, etc. 15cm fibroid uterus, with large submucus sessile myoma, failed D&C endometri al ablation, Jin navarro, [place] - [facility] 0 15:07:12 Problem Notes None recorded. Procedures Surgical History Date Name Laterality Status Provider Name and Address Organization Details Recorded Time 06/08/19 21 Most Recent Mammogram completed HEATHER Heath [facility] 08/22/2020 10:40:52 06/08/19 21 Date of Last Mammogram completed HEATHER Heath [facility] 06/28/2021 12:17:59 02/28/20 19 HYSTEROSCOPY, WITH ENDOMETRIAL ABLATION (SURG) completed Jin Zavala [facility] 03/02/2019 05:44:23 06/28/19 19 Date of Last Pap Smear completed Cesia MoralesHEATHER sierra [facility] 12/09/2018 16:55:27 03/18/19 15 Breast Surgery completed Mehreen SalmeronHEATHER [facility] 10/11/2014 16:45:39 03/18/19 10 Colonoscopy completed Mehreen SalmeronHEATHER [facility] 10/11/2014 16:45:39 03/18/19 10 Other completed Mehreen SalmeronHEATHER [facility] 10/11/2014 16:45:39 03/18/19 03 Caesarean Section completed Mehreen SalmeronHEATHER [facility] 10/11/2014 16:45:39 Imaging Results None recorded. Procedure [...] Updated DateTime 06/28/2021 170.18 cm 31.6 kg/m2 00866.66 g 180/104 mm[Hg] Cesia Win MA [facility] 06/28/2021 12:25:56 Date Recorded Body height Body mass index (BMI) Body weight Provider Name and Address Organization Details Last Updated DateTime 08/05/2019 167.64 cm 30.7 kg/m2 76064.55 g Arpita Anderson MA [facility] 08/05/2019 10:27:58 Date Recorded Body height Body mass index (BMI) Body weight Systolic And Diastolic Provider Name and Address Organization Details Last Updated DateTime 08/22/2020 170.18 cm 30.7 kg/m2 97047.1 g 134/84 mm[Hg] Cesia Win MA [facility] 08/22/2020 10:45:48 Date Recorded Body height Body mass index (BMI) Body weight Systolic And Diastolic Provider Name and Address Organization Details Last Updated DateTime 12/22/2021 170.18 cm 28.7 kg/m2 86616.83 g 140/90 mm[Hg] Maddie Gudino MA [facility] 12/22/2021 14:57:29 Date Recorded Body height Body mass index (BMI) Body weight Heart rate Body temperature Systolic And Diastolic Provider Name and Address Organization Details Last Updated DateTime 9 167.64 cm 30.3 kg/m2 44244.3 7 g 86 /min 98.2 [degF] 124/80 mm[Hg] Kelly Travis MA [facility] 9 15:41:16 Social History Question Answer Notes LastModified by Organizat ion Details LastModified Time Tobacco Smoking Status Never Smoker Mehreen Salmeron, HEATHER [facility], [place] - [facility] 10/11/2014 16:45:39 Do You Have An [...] Or The Highest Degree You Have Received? [id number] Information not available 08/22/2020 Live Alone Or [...] SNOMED-CT Code Diagnosis ICD10 Code Diagnosis Note [id number] [facility] [address] [place] [phone] 10/11/2014 16:03:22 10/11/2014 17:41:07 Gynecologic examination 12123580 Family chandrika nning surveillance 265100834 Screening mammography 13848038 Candidiasis 14145045 Deliveries by [id number] Group B St reptococcus carrier 6810186925 230 [id number] MD Balwinder Ferraro (TRACK SUPERINTENDENT) [address] [place] [phone] 04/23/2017 14:18:04 04/23/2017 17:29:50 Gynecologic examination 48713804 Z01.411 Screening mammography 24 281273 Z12.31 [id number] MD Balwinder Ferraro (TRACK SUPERINTENDENT) [address] [place] [phone] 06/26/2018 15:59:28 06/27/2018 14:25:45 Gynecologic examination 68039572 Z01.419 Z11.51 Screening mammography 24 466925 Z12.31 Screening for disorder 318627852 Z13.9 family history of gout Perimenopa usal disorder 975423852 N95.9 Candidiasis 07401312 B37 .9 Exposure t o sexually transmissible disorder 398776608 Z20.2 [id number] Jin Zavala MD [facility] (TRACK SUPERINTENDENT) [address] [place] [phone] 12/09/2018 16:13:58 12/10/2018 16:12:53 Perimenopausal disorder 619171950 N95.9 [id number] Jin Zavala MD [facility] (TRACK SUPERINTENDENT) [address] [place] [phone] 02/24/2019 16:38:54 02/25/2019 11:59:14 Perimenopausal disorder 074470057 N95.9 Menorrhagia 360003181 N9 2.0 [id number] Jin Zavala MD [facility] (TRACK SUPERINTENDENT) [address] [place] [phone] 03/16/2019 15:16:03 03/17/2019 11:04:01 Uterine leiomyoma 50192089 D25.9 discussed medicinal options depo lupron, progesteri n only pill, and surgical options. hysterecto my, UFE, etc. [id number] [facility]END[facility] [address] [place] [phone] 08/05/2019 09:04:43 08/06/2019 10:33:14 Uterine leiomyoma 07907891 D25.9 discussed medicinal options depo lupron, progesteri n only pill, and surgical options. hysterecto my, UFE, etc. 15cm fibroid uterus, with large submucus sessile myoma, failed D&C endometria l ablation, Gynecologi c examination 49140194 Z01.419 Z11.51 Menorrhagia 421824772 N9 2.0 [id number] Jin Zavala MD [facility] (TRACK SUPERINTENDENT) [address] [place] [phone] 08/22/2020 10:03:10 08/27/2020 13:49:50 Uterine leiomyoma 07566515 D25.9 Deliveries by [id number] O82 Perimenopa usal disorder 409123832 N95.9 Gastroesop hageal reflux disease 385811101 K21.9 Helicobact er pylori gastrointestinal tract infection 004056013 B96.81 [id number] CHERY MORALES (TRACK SUPERINTENDENT) [address] [place] [phone] 06/28/2021 12:07:45 06/30/2021 08:14:30 Gynecologic examination 13859407 Z01.419 Cervical cancer screenin NILM and HPV negative, Pap due in 2023.Breas t cancer screening: Reviewed recommenda tions for initiation at age 40 with annual screening. Discussed SBE. Last mammogram 06/07/20 [id number] onoscopy: UTDVulvova ginitis: routine nuswab, treat as neededCont raception: currently on Bilsovi, switching to Slynd.Diet /exercise: Counseled regarding importance of physical activity, healthy diet and appropriat e calcium intake. Screening for malignant neoplasm of breast 208319585 Z12.31 Screening mammogram ordered in clinic today. Counseled on importance of annual breast cancer screening. FHx not significan t for breast cancer Uterine leiomyoma 278246 05 D25.9 Last Mar 2019 with enlarged uterus with multiple fibroids present. She had hysterosco pic D&C Feb 2019 with benign findings. Prescribed Slynd 4mg QD for AUB secondary to fibroids. Pt to start taking this and stop Bilsovi. Educated patient on Slynd and its common side effects. TVUS ordered to reassess fibroids. RTC in 3 months. Essential hypertension 67798377 I10 BP elevated on two separate occasions [...] voiced understand ing. Generalize d anxiety disorder 99261074 F41.1 Worsening anxiety with panic attacks. Takes buspirone irregularl y per PCP. Counseled patient on proper usage of Buspirone. Counseled pt that behavioral therapy can be very beneficial for anxiety. Provided pt support and referral options. Educated pt to follow up with PCP regarding anxiety as well. [id number] CHERY MORALES (TRACK SUPERINTENDENT) [address] [place] [address] 12/22/2021 14:27:19 12/28/2021 11:45:43 Contraception care management 162875677 Z30.9 Pt has been on COCs per Dr. Zavala, tolerating well. Requesting refill today. Candidal vulvovaginitis 06349928 B37.9 Pt reporting pruritic rash from wearing pads. Declined PE today. Suspect candidal infection. Rx topical nystatin and Diflucan. Advised to keep area clean and dry. RTC if symptoms persist. Anxiety 16763371 F41.9 Takes buspirone for anxiety, requesting refill today. Uterine leiomyoma 533604 05 D25.9 TVUS Mar 2019 with enlarged [...] Marie Member ID Guarantor Name 12/22/2022 1 [facility] [id number] Gabrielle Whitney [id number] Gabrielle Whitney Notes Date Note Type Note Provider Name and Address Organization Details Recorded Time 03/16/2019 text/html Patient is a 48 y/o female presenting for AUB. Patient has been taking Mimvey and continues to have menses > 6 days. She reports vaginal dryness as better. She also reports sleep disturbance and mood swings. s/p [facility] ENDOMETRIAL ABLATION has fibroids Jin Zavala [place], [place] - [facility] 03/16/2019 18:37:31 08/05/2019 text/html 48 y/o fema le presenting for AUB. Patient has been taking NE 5mg and continues to have menses 6-8 days. She reports vaginal dryness as better. She also reports sleep disturbance and mood swings. s/p [facility] ENDOMETRIAL ABLATION has fibroids CHRISTOPHER Blunt [facility] 08/05/2019 13:00:19 08/22/2020 text/html Annual GYNReport ed [...] reports sleep disturbance and mood swings. s/p [facility] ENDOMETRIAL ABLATION has fibroids Jin navarro, [facility] 08/23/2020 09:58:16 06/28/2021 text/html Annual GYNReport ed bypatient.Menstrual cycle:Irregular cycle intervals; Pt tried discontinuing Bilsovi in October and experienced menorrhagia. Started Bilsovi again and had several months of no bleeding ([id number]). Currently experiencing ~15 days/month of spotting for [...] the medication. PCP is Dr. Tierney in [place], [place]. Pt denies CP, SOB, DANIEL, vision changes, lightheadedness. CHERY MORALES Attn: Accounting,[address] [place], [address], [facility] 06/29/2021 14:57:24 12/22/2021 text/html 51 y/o [...] colonoscopy UTD. CHERY MORALES Attn: Accounting[address] [place], [address], [place] - [facility] 12/26/2021 15:05:03 OBGyn Episode Ob Episode Information Episode Created Date Number of Fetuses Patient Bloodtype Patient rh Status Prepregnancy Weight lbs Domestic Partner Domestic Partner Phone Father Name Dry End Tester Status 10/12/19 15 2 CLOSED Fetus Data First Name Last Name Admitted to NICU Weight (g) Sex Living Outcome Pediatric Complications Fetus ID Race Codes Race Delivery Type 1841.58 352 M Prematur e 89585 Primary 12799 Ryan Calculation Initial Ryan Date Initial Exam [...] Complications Tubal Sterilization Discharge Date Comments 3 [facility] idural 34 Discharge Information Feeding Method Contraceptive Method Maternal HG B and HCT Levels Ob Episode Information Episode Created Date Number of Fetuses Patient Bloodtype Patient rh Status Prepregnancy Weight lbs Domestic Partner Domestic Partner Phone Father Name Dry End Tester Status 10/12/19 15 2 CLOSED Fetus Data First Name Last Name Admitted to NICU Weight (g) Sex Living Outcome Pediatric Complications Fetus ID Race Codes Race Delivery Type 2068.37 952 M Prematur e 12166 Primary 1842.49 0704 M Prematur e 68251 Ryan Calculation Initial Ryan Date Initial Exam [...] Complications Tubal Sterilization Discharge Date Comments 3 [facility] idural 34 WEBBER Discharge Information Feeding Method Contraceptive Method Maternal HG B and HCT Levels
--- OUTSIDE RECORDS SUMMARY | 2024-10-02 11:06 | XMS_ITS | Clinical Summary ---
Author Organization [facility] Kacey Centeno Address [address] [place] [address] Care Team Providers Care Pararescue Manager Name Role Phone Giovanny Tierney MD Primary Care Provider [phone] Allergies Active Allergy Reactions Criticality Noted Date Comments Amlodipine Swelling Low 03/21/2023 L.Acid,Gas,Mariam,Rham-B.Ani-Cran Muscle Pain Low 06/2023 Lisinopril Cough Low 03/21/2023 Medications apixaban (Eliquis) 5 mg tabletIndication s:Acute pulmonary embolism, unspecified pulmonary embolism type, unspecified whether acute cor pulmonale present (CMS/HCC) Take 1 Tablet (5 mg) by mouth 2 times daily. 180 Tablet 3 5 Active apixaban (Eliquis) 5 mg tabletIndication s:Acute pulmonary embolism, unspecified pulmonary embolism type, unspecified whether acute cor pulmonale present (CMS/HCC) Take 1 tablet by mouth twice daily 60 Tablet 3 5 09/15/19 25 Discontinu ed(Reorder ) apixaban (Eliquis) 5 mg tabletIndication s:Acute pulmonary embolism, unspecified pulmonary embolism type, unspecified whether acute cor pulmonale present (CMS/HCC) Take 1 Tablet (5 mg) by mouth 2 times daily. 60 Tablet 3 5 10/03/19 25 Discontinu ed(Reorder ) Active Problems No known active problems Encounters Date Type Department Care Team Description 10/02/2024 10:00 AM CDT Office Visit [facility] Oncology and Hematology - [place] [address] [place] [address] Toro Vargas MD Hypomagnesemia (Primary Dx); Acute pulmonary embolism, unspecified pulmonary embolism type, unspecified whether acute cor pulmonale present ([facility]); Acute deep vein thrombosis (DVT) of distal vein of left lower extremity ([facility]) 09/30/2024 External Device Data STL ABSTRACTION Provider, Abstract 09/30/2024 Orders Only [facility] Oncology [facility] Hematology - [place] [address] [place] [id number] Toro Vargas MD 09/29/2024 External Device Data STL ABSTRACTION Provider, Abstract 09/29/2024 Orders Only [facility] On[facility] Hematology - [place] [address] [place] [phone] Toro Vargas MD 09/25/2024 Telephone [facility] Heart and Vascular Surgery [address] [facility] [phone] [facility] [address] [place] [phone] Alexandria Chaudhry MD Needs Appointment 09/14/2024 Refill [facility] Oncology [facility] Hematology [place] [address] [place] [phone] Toro Vargas MD Acute pulmonary embolism, unspecified pulmonary embolism type, unspecified whether acute cor pulmonale present ([facility]) 09/01/2024 External Device Data STL ABSTRACTION Provider, [...] on file Legal Sex Female 8:52 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 Gender Identity Not on file Sexual Orientation [...] oz) 10/02/2024 9:59 A M CDT Height 170.2 cm (5' 7) 03/21/2023 1:28 PM CONTRACT ASSISTANT Body Mass Index 24.68 03/21/2023 1:28 PM CONTRACT ASSISTANT Plan of Treatment Upcoming Encounters Date Type Department Care Team (Late st Contact Info) Description 10/09/2024 4:00 PM CDT Telephone Check Up [facility] Oncology and Hematology - [place] [address] [facility] [address] [place] [phone] Toro Vargas MD [address] [facility] [address] [place] [address] 11/10/2024 1:30 PM CDT Initial consult [facility] [address] [facility] [address] [address] [facility] [address] [place] [address] [place] [address] [address] [facility] [address] [place] [address] Health Maintenance Due Date Last [...] of 2) 2019 BREAST CANCER SCREENING 08/24/2022 08/25/19, 08/24/2021, 06/07/2020, Additional history exists Preventative Visit- Commercial 03/18/2024 0 10/19/2020, 02/16/2019, 06/26/2018, Additional history exists INFLUENZA VACCINE (#1) 2024 COLORECTAL SCREENING 12/24/2026 12/24/2016, 03/18/2009, 03/17/2009 Colorectal Cancer Screening 12/24/2026 DTAP/TDAP/TD VACCINES (2 - T d or Tdap) 02/16/2029 02/16/2019 Procedures Procedure Name Priority Date/Time Associated Diagnosis Comments CBC WITH DIFFERENTIAL Routine 09/29/2024 4:18 PM CDT IRON LEVEL Routine 09/29/2024 9:46 AM CDT from Last 3 Months Results * CBC WITH DIFFERENTIAL (09/29/2024 4:18 PM CDT) Blood Toro Vargas MD HEMATOLOGY ORDERABLES Final Res ult * IRON LEVEL (09/29/2024 9:46 AM CDT) Blood Toro Vargas MD CHEMISTRY ORDERABLES Final Resu lt from Last 3 Months Insurance [facility] [id number] Member Subscriber Plan / Payer (Ef fective 2023-Present) Name:Gabrielle Whitney Relation to Subscriber:Self Name:Gabrielle Whitney Payer ID:[id number] (NAIC) Type:HMO Address: [facility] [address] [place] [id number] [employer] (INTERNAL) [facility] [employer] Plans Care Teams Pararescue Manager Relationship Specialty Start Date End Date Giovanny Tierney MD [address] [place] [address] PCP - General Family Practice 03/21/23
[2024-10-02 12:34] LABS: Magnesium 2.3 mg/dL (1.6-2.3)
== END 2024-10-02 11:04 | disposition home or self-care (01) ==
LOC: ANHLAB 11:04
PROVIDERS: PCP Family Medicine; Visit Provider Internal Medicine Hematology & Oncology
DX: E83.42 Hypomagnesemia (principal)
CPT/HCPCS: 36415; 83735

== ENCOUNTER 2024-11-02 15:01 | Outpatient (CLI) | payer OTHER, SELFPAY ==
--- NOTE | ~2024-11-02 | US_ITS ---
EXAMINATION: US venous doppler [facility] DATE: 11/02/2024 15:22 INDICATION: Preoperative evaluation for possible mechanical thrombectomy TECHNIQUE: Grayscale ultrasound images without and with compression and Doppler ultrasound images of the left lower extremity veins were obtained. COMPARISON: Examination was compared with multiple prior studies, performed most recently on and dating back to 03/08/2023 FINDINGS: Partial compressibility is identified within the distal femoral vein with hyperechoic mural thickening and patency of flow. Partial compressibility and scant flow detected within the distal popliteal vein The peroneal vein and posterior tibial veins are patent and easily compressible. The left common femoral vein, profunda femoral vein and greater saphenous vein outflow are patent and easily compressible. No significant collateralization is appreciated. No venous dilatation is present. No significant soft tissue swelling is noted. IMPRESSION: Hyperechoic mural thickening within the left distal femoral vein and left popliteal vein with partial compressibility and central patency, findings consistent with chronic deep venous thrombosis. This demonstrates an interval change from previous examination dated 04/01/2024 which also demonstrate d partial compressibility, but with only minimal flow. Only the greater saphenous vein outflow was interrogated on the current study. The small saphenous vein was not visualized on the submitted images Reviewed, dictated and finalized at location A. IMPRESSION: Hyperechoic mural thickening within the left distal femoral vein and left popli teal vein with partial compressibility and central patency, findings consistent with chronic deep venous thrombosis. This demonstrates an interval change from previous examination dated 04/01/2024 which also demonstrated partial compressibility, but with only minimal flow. Only the greater saphenous vein outflow was interrogated on the current study. The small saphenous vein was not visualized on the submitted images
== END 2024-11-02 15:02 | disposition home or self-care (01) ==
PROVIDERS: Visit Provider Internal Medicine Hematology & Oncology
DX: I82.4Z2 Acute embolism and thrombosis of unspecified deep veins of left distal lower extremity (principal)
CPT/HCPCS: 93971